=== PATIENT | female | born 1960 | race Caucasian/White ===

== ENCOUNTER 2017-03-07 13:41 | Inpatient (IN) | payer OTHER ==
[~2017-03-07] VITALS: Ht 162.6 cm; Wt 78.1 kg
[~2017-03-07 13:41] MED LIST: ASPI81TA81 PO; ATOR20TA15 PO; ERGO1CAP30 PO; METF500T PO; MULT-65 PO; OMEP40CA2 PO
[2017-03-07 13:43] VITALS: BP 162/72; PULSE 110; RESP 20; TEMP 99.1; O2SAT 98
--- NOTE | 2017-03-07 13:47 | PD ---
Physical Exam Date Seen by Provider: Mar 07, 2017 Time Seen by Provider: 13:45 Narrative 56 yo female here for evaluation of wound check. Had an amputation on the right foot in July. Has a new developing redness and blistering on the right foot since yesterday. No injuries per patient. No fevers. Pain is 5/10. Vitals are stable in triage. Awaiting bed placement. Data Data Last Documented VS Vital Signs Date Time Temp Pulse Resp B/P Pulse Ox O2 Delivery O2 Flow Rate FiO2 03/07/17 13:43 99.1 110 20 162/72 98 Room Air [facility] Medical Record Reviewed: Yes Supervised Visit with ABDULAZIZ: Jay Ambrose Mar 07, 2017 13:47
--- NOTE | 2017-03-07 13:54 | PD ---
HPI Chief Complaint: Skin Problem Time Seen by Provider: 13:54 Travel History International Travel<30 days: No Contact w/Intl Traveler<30days: No Traveled to known affect area: No History of Present Illness HPI 56-year-old female with history of diabetes, neuropathy, colitis, with amputation of all of her toes on the right foot and her left great toe, presents to emergency department today for evaluation of a blister that appeared on the plantar surface of her right foot last evening but has increased in size with pain and throbbing extending to the ankle. Patient states that prior to yesterday the wound was not there. She states she did a lot of walking yesterday and noticed an approximate 2 cm darkened blister at the end of the day yesterday. She was in no pain when she went to bed. She does report intermittent hot and cold flashes but uncertain of fever. No nausea or vomiting. No diarrhea. She contacted Dr. Benson who performed the amputation in July and advised she come to the emergency department. Patient does report history of stepping on a nail on the right foot in November of this year. She does have a scabbed over wound lateral to the area of the new blister that she states is unchanged and not worsened. She does continue to smoke cigarettes. Denies any illicit drug use. PFSH Past Medical History Arthritis: Yes Autoimmune Disease: No Anxiety: No Depression: No Cancer: No Cardiovascular Problems: No High Cholesterol: No Congestive Heart Failure: No COPD: No Cerebrovascular Accident: No Diabetes: Yes Diminished Hearing: No Endocrine: Yes (BORDERLINE DIABETES) Gastrointestinal Disorders: Yes GERD: Yes Genitourinary: No Hiatal Hernia: No Immune Disorder: No Musculoskeletal: Yes (BILATERAL KNEE MENISCUS TEARS) Neurologic: No Psychiatric: No Reproductive: No Respiratory: No Renal Failure: No Seizures: No Sleep Apnea: No Thyroid Disease: No Ulcer: No ?: Not LMP: MENOPAUSAL Past Surgical History Abdominal Surgery: No Cardiac Surgery: No Section: Yes Ear Surgery: No Endocrine Surgery: No Eye Surgery: No Genitourinary Surgery: No Gynecologic Surgery: Yes (, HYSTERECTOMY) Hysterectomy: Yes Oral Surgery: No Pacemaker: No Thoracic Surgery: No Other Surgery: Yes (BILATERAL GREAT TOE AMP, RIGHT 2ND AND 4TH TOE AMPUTATION) Social History Alcohol Use: No Tobacco Use: No (QUIT JULY 2016) Substance Use: No Allergies-Medications (Allergen,Severity, Reaction): Coded Allergies: Codeine (Verified Allergy, Severe, Hives, 03/07/17) Morphine (Verified Allergy, Severe, rash, 03/07/17) Penicillin (Verified Allergy, Severe, Hives, 03/07/17) Pt reports she has tolerated Keflex on multiple occassions in past. Uncoded Allergies: STEROIDS (Allergy, Severe, Hives, 07/25/16) Reported Meds & Prescriptions Reported Meds & Active Scripts Active Omeprazole 40 Mg Cap 40 Mg PO DAILY Metformin (Metformin HCl) 500 Mg Tab 500 Mg PO BIDPC With meals Atorvastatin (Atorvastatin Calcium) 20 Mg Tab 20 Mg PO HS Reported Dolores (Hydrocodone-Acetaminophen) 5-325 mg Tab 1 Tab PO Q6H PRN Multi-Vitamin Daily (Multiple Vitamin) 1 Tab Tab 1 Tab PO DAILY Aspir-81 (Aspirin) 81 Mg Tabdr 81 Mg PO DAILY Review of Systems Except as stated in HPI: all other systems reviewed are Neg Physical Exam Narrative GENERAL: Well-nourished female patient, in no acute distress. SKIN: Focused skin assessment warm/dry. On the plantar surface of the distal aspect of the right foot there is a 2 cm x 1 cm area of dark purple surrounded by callus/blister appearing skin that extends 5 cm in diameter. From there erythema extends 10 cm in diameter towards the proximal foot. There is some fluctuance. HEAD: Atraumatic. Normocephalic. EYES: Pupils equal and round. No scleral icterus. No injection or drainage. ENT: No nasal bleeding or discharge. Mucous membranes pink and moist. NECK: Trachea midline. No JVD. CARDIOVASCULAR: Tachycardic rate and rhythm. No murmur appreciated. RESPIRATORY: No accessory muscle use. Clear to auscultation. Breath sounds equal bilaterally. GASTROINTESTINAL: Abdomen soft, non-tender, nondistended. Hepatic and splenic margins not palpable. MUSCULOSKELETAL: No obvious deformities. No clubbing. No cyanosis. No edema. All the toes of right foot are amputated. The left great toe is amputated. NEUROLOGICAL: Awake and alert. No obvious cranial nerve deficits. Motor grossly within normal limits. Normal speech. PSYCHIATRIC: Appropriate mood and affect; insight and judgment normal. Data Data Last Documented VS Vital Signs Date Time Temp Pulse Resp B/P Pulse Ox O2 Delivery O2 Flow Rate FiO2 03/07/17 16:45 98.7 94 20 133/67 96 03/07/17 14:05 Room Air Orders Electrocardiogram (03/07/17 14:00) Complete Blood Count With Diff (03/07/17 14:00) Comprehensive Metabolic Panel (03/07/17 14:00) Prothrombin Time / Inr (Pt) (03/07/17 14:00) Act Partial Throm Time (Ptt) (03/07/17 14:00) Lactic Acid Sepsis Protocol (03/07/17 14:00) Urinalysis - C+S If Indicated (03/07/17 14:00) Blood Culture (03/07/17 14:00) Chest, Single Ap (03/07/17 14:00) Blood Glucose (03/07/17 14:00) Ecg Monitoring (03/07/17 14:00) Iv Access Insert/Monitor (03/07/17 14:00) Oximetry (03/07/17 14:00) Oxygen Administration (03/07/17 14:00) Aztreonam Inj (Azactam Inj) (03/07/17 14:00) Metronidazole 500 Mg Inj (Flagyl 500 Mg (03/07/17 14:00) Vancomycin Inj (Vancomycin Inj) (03/07/17 14:00) Sodium Chlor 0.9% 1000 Ml Inj (Ns 1000 M (03/07/17 14:00) Sodium Chlor 0.9% 1000 Ml Inj (Ns 1000 M (03/07/17 14:00) Foot, Limited (2vws) (03/07/17 ) Westergren Sedimentation Rate (03/07/17 14:06) Sodium Chlor 0.9% 1000 Ml Inj (Ns 1000 M (03/07/17 16:00) Ketorolac Inj (Toradol Inj) (03/07/17 16:45) Mri Foot W&W/O Contrast (03/07/17 ) Lactic Acid (03/07/17 17:05) Admit Order (Ed Use Only) (03/07/17 17:16) Labs Laboratory Tests Test 03/07/17 03/07/17 03/07/17 03/07/17 14:10 14:55 16:10 17:02 White Blood Count 23.3 TH/MM3 Red Blood Count 3.95 MIL/MM3 Hemoglobin 11.6 GM/DL Hematocrit 35.2 % Mean Corpuscular Volume 89.0 FL Mean Corpuscular Hemoglobin 29.5 PG Mean Corpuscular Hemoglobin 33.1 % Concent Red Cell Distribution Width 13.5 % Platelet Count 277 TH/MM3 Mean Platelet Volume 8.7 FL Neutrophils (%) (Auto) 81.9 % Lymphocytes (%) (Auto) 11.4 % Monocytes (%) (Auto) 5.6 % Eosinophils (%) (Auto) 0.7 % Basophils (%) (Auto) 0.4 % Neutrophils # (Auto) 19.1 TH/MM3 Lymphocytes # (Auto) 2.7 TH/MM3 Monocytes # (Auto) 1.3 TH/MM3 Eosinophils # (Auto) 0.2 TH/MM3 Basophils # (Auto) 0.1 TH/MM3 CBC Comment DIFF FINAL Differential Comment Prothrombin Time 10.3 SEC Prothromb Time International 0.9 RATIO Ratio Activated Partial 32.4 SEC Thromboplast Time Sodium Level 133 MEQ/L Potassium Level 4.5 MEQ/L Chloride Level 100 MEQ/L Carbon Dioxide Level 23.0 MEQ/L Anion Gap 10 MEQ/L Blood Urea Nitrogen 10 MG/DL Creatinine 0.76 MG/DL Estimat Glomerular Filtration 79 ML/MIN Rate Random Glucose 198 MG/DL Calcium Level 9.9 MG/DL Total Bilirubin 0.5 MG/DL Aspartate Amino Transf 27 U/L (AST/SGOT) Alanine Aminotransferase 31 U/L (ALT/SGPT) Alkaline Phosphatase 125 U/L Total Protein 8.0 GM/DL Albumin 3.6 GM/DL Lactic Acid Level 2.2 mmol/L 1.5 mmol/L Urine Color LIGHT-YELLOW Urine Turbidity CLEAR Urine pH 6.0 Urine Specific [place] 1.004 Urine Protein NEG mg/dL Urine Glucose (UA) NEG mg/dL Urine Ketones NEG mg/dL Urine Occult Blood NEG Urine Nitrite NEG Urine Bilirubin NEG Urine Urobilinogen LESS THAN 2.0 MG/DL Urine Leukocyte Esterase NEG Urine WBC LESS THAN 1 /hpf Urine Squamous Epithelial 1 /hpf Cells Microscopic Urinalysis Comment CATH-CULT NOT IND MDM Medical Decision Making Medical Screen Exam Complete: Yes Emergency Medical Condition: Yes Medical Record Reviewed: Yes Differential Diagnosis Cellulitis versus abscess versus osteomyelitis versus sepsis Narrative Course 56 year-old female presents to emergency department for evaluation of worsening blister on the plantar surface of her right foot. Patient appears in distress. She does have a wound on the foot that appears to be infectious in nature. Sepsis workup was initiated as the patient is tachycardic with a low-grade temperature here. Patient was given Zantac 10, Flagyl, and vancomycin IV. Her white count is 23.3 with a neutrophilia of 19.1. CMP is with mild hyponatremia 133. Alkaline phosphatase slightly elevated 125. Lactic acid is 2.2. Urinalysis is unremarkable. Chest x-rays without acute cardiopulmonary disease. Foot x-ray shows soft tissue swelling involving the stump at the site of the previous metatarsal amputation without definite underlying erosive changes of the bones. Tiny plantar and Achilles calcaneal spurs. MRI is ordered. A call has a place to [facility] for admission. Plan is discussed with the patient who is tearful but in agreement with this plan of care. Sepsis Criteria SIRS Criteria (2 or more): Heart rate over 90, WBC > 35029, < 4000 or > 10% bands Sepsis Criteria (SIRS+source): Infect source susp/known Severe Sepsis (+one): Lactate >2 Diagnosis Primary Impression: Sepsis Qualified Code: A41.9 - Sepsis, due to unspecified organism Additional Impressions: Cellulitis and abscess of foot Diabetes 1.5, managed as type 1 Neuropathic pain Admitting Information Admitting Physician Requests: Admit Condition: Stable Beth Ferraro Mar 07, 2017 13:54
[2017-03-07] MEDS ORDERED: AZTREONAM INJ 2,000 MG in SODIUM CHLORIDE 0.9% INJ 100 ML IV STA (14:00)
[2017-03-07] MEDS ORDERED: metroNIDAZOLE 500 MG INJ 100 ML IV STA (14:00)
[2017-03-07] MEDS ORDERED: SODIUM CHLOR 0.9% 1000 ML INJ 1,000 ML IV ONE ×2 (14:00→16:00)
[2017-03-07] MEDS ORDERED: VANCOMYCIN INJ 1,000 MG in SODIUM CHLOR 0.9% 250 ML INJ 250 ML IV STA (14:00)
[2017-03-07] MEDS ORDERED: SODIUM CHLOR 0.9% 1000 ML INJ 800 ML IV ONE (14:00)
[2017-03-07 14:05] VITALS: RESP 18; O2SAT 98
--- NOTE | 2017-03-07 14:30 | RADRPT ---
EXAM DATE/TIME: 03/07/2017 14:27 [facility] COMPARISON: CHEST SINGLE AP, August 25, 2016, 17:43. INDICATIONS : Fever, cough x 3days MEDICAL HISTORY : diabetic SURGICAL HISTORY : None. ENCOUNTER: Initial ACUITY: 3 days PAIN SCORE: 0/10 LOCATION: Bilateral chest FINDINGS: A single view of the chest demonstrates the lungs to be symmetrically aerated without evidence of mas s, infiltrate or effusion. The cardiomediastinal contours are unremarkable. Osseous structures are intact. CONCLUSION: No acute disease. Jared Matthews MD FACR on March 07, 2017 at 14:28 Board Certified Radiologist. This report was verified electronically.
--- NOTE | 2017-03-07 14:37 | RADRPT ---
EXAM DATE/TIME: 03/07/2017 14:23 [facility] COMPARISON: No previous studies available for comparison. INDICATIONS : Inflammation, right foot blister on medial side MEDICAL HISTORY : Diabetic SURGICAL HISTORY : 2 amputation surgeries ENCOUNTER: Initial ACUITY: 1 day PAIN SCORE: 9/10 LOCATION: Right foot FINDINGS: Soft tissue swelling is noted involving the stump at the site of previous metatarsal amputation. No erosive changes involving the underlying bony structures are noted. Tiny Achilles and plantar calcan eal spurs are noted. CONCLUSION: 1. Soft tissue swelling involving the stump at the site of previous metatarsal amputation without de finite underlying erosive changes of the bones. 2. Tiny plantar and Achilles calcaneal spurs. Kamari Powell MD on March 07, 2017 at 14:30 Board Certified Radiologist. This report was verified electronically.
[2017-03-07] MEDS ORDERED: NORC5TAB PO (14:53)
[2017-03-07 15:21] LABS: AUTOMATED NEUTROPHIL # 19.1 TH/MM3 (1.8-7.7); BASOPHIL # 0.1 TH/MM3 (0-0.2); BASOPHIL % 0.4 % (0.0-2.0); EOSINOPHIL # 0.2 TH/MM3 (0-0.4); EOSINOPHIL % 0.7 % (0.0-4.0); HEMATOCRIT 35.2 % (35.0-46.0); HEMO FLAGS DIFF FINAL; LYMPH % 11.4 % (9.0-44.0); LYMPHOCYTE # 2.7 TH/MM3 (1.0-4.8); MEAN CORPUSCULAR HEMOGLOBIN 29.5 PG (27.0-34.0); MEAN CORPUSCULAR HGB CONC 33.1 % (32.0-36.0); MONO % 5.6 % (0.0-8.0); NEUT % 81.9 % (16.0-70.0); PLATELET COUNT 277 TH/MM3 (150-450); RED BLOOD COUNT 3.95 MIL/MM3 (4.00-5.30); RED CELL DISTRIBUTION WIDTH 13.5 % (11.6-17.2); WHITE BLOOD COUNT 23.3 TH/MM3 (4.0-11.0)
[2017-03-07 15:38] LABS: APTT (PATIENT) 32.4 SEC (24.3-30.1); INTERNATIONAL NORMALIZED RATIO 0.9 RATIO; PROTHROMBIN TIME - PATIENT 10.3 SEC (9.8-11.6)
[2017-03-07 15:42] LABS: ALKALINE PHOSPHATASE 125 U/L (45-117); TOTAL BILIRUBIN ADULT 0.5 MG/DL (0.2-1.0)
[2017-03-07 15:53] LABS: ALT (GPT) 31 U/L (10-53); ANION GAP 10 MEQ/L (5-15); AST (GOT) 27 U/L (15-37); BLOOD UREA NITROGEN 10 MG/DL (7-18); CHLORIDE 100 MEQ/L (98-107); GLOMERULAR FILTRATION RATE 79 ML/MIN (>89); POTASSIUM 4.5 MEQ/L (3.5-5.1); SODIUM (NA) 133 MEQ/L (136-145)
[2017-03-07 16:43] LABS: BLOOD, URINE NEG (NEG); COMMENT (UR) CATH-CULT NOT IND; CULTURE IF INDICATED CATH CULTURE NOT IND; GLUCOSE,URINE NEG (NEG); KETONE, URINE NEG (NEG); NITRITE,URINE NEG (NEG); SQUAMOUS EPITHELIAL CELL URINE 1 /hpf (0-5); URINE COLOR LIGHT-YELLOW (YELLW/STRAW)
[2017-03-07 16:45] VITALS: BP 133/67; PULSE 94; RESP 20; TEMP 98.7; O2SAT 96
[2017-03-07] MEDS ORDERED: KETOROLAC TROMETHAMINE 30 MG/ML (IVP) VIAL IV PUSH ONE (16:45)
[2017-03-07 17:05] LABS: LACTIC ACID GHOST NOT REPORTABLE
[2017-03-07] MEDS ORDERED: SENNOSIDES 8.6 MG TAB PO PRN (18:00)
[2017-03-07] MEDS ORDERED: ONDANSETRON HCL 4 MG/2 ML VIAL IVP PRN (18:00)
[2017-03-07] MEDS ORDERED: NALOXONE HCL 0.4 MG/ML AMP IV PRN (18:00)
[2017-03-07] MEDS ORDERED: SODIUM CHLORIDE 0.9% FLUSH 10 ML FLUSH IV FLUSH PRN (18:00)
[2017-03-07] MEDS ORDERED: BISACODYL 10 MG SUPP RECTAL PRN (18:00)
[2017-03-07] MEDS ORDERED: MAGNESIUM HYDROXIDE SUSP 30 ML CUP PO PRN (18:00)
[2017-03-07] MEDS ORDERED: DEXTROSE 50% IN WATER 50 ML VIAL(D50) IV PRN (18:00)
[2017-03-07] MEDS ORDERED: Vancomycin Consult Pharmacy 1 EA OTHER SCH (18:00)
[2017-03-07] MEDS ORDERED: GLUCAGON 1 MG/ML VIAL OTHER PRN (18:00)
[2017-03-07] MEDS ORDERED: ACETAMINOPHEN 325 MG TAB PO PRN (18:00)
[2017-03-07] MEDS ORDERED: GADODIAMIDE PF 287 MG/ML 5 ML VIAL (for RAD MRI) IV ONE (18:53)
[2017-03-07] MEDS: SODIUM CHLOR 0.9% 1000 ML INJ 1,000 ML IV SCH (19:20)
[2017-03-07 19:25] VITALS: BP 134/86; PULSE 93; RESP 18; O2SAT 97
--- NOTE | 2017-03-07 19:43 | RADRPT ---
EXAM DATE/TIME: 03/07/2017 18:30 [facility] COMPARISON: FOOT RIGHT COMPLETE ([id number]), August 21, 2016, 21:40. FOOT RIGHT LIMITED (2VWS), March 07, 2017, 1 4:23. MRI FOOT RIGHT W & W/O CONTRAST, August 21, 2016, 20:13. INDICATIONS : Pain and swelling of right foot. Status post amputation of all digits to level of the base of metatar sals. Patient being evaluated for osteomyelitis. CONTRAST: 14 cc Omniscan (gadodiamide) IV MEDICAL HISTORY : Diabetes mellitus type 2. SURGICAL HISTORY : Amputation of all digits on right foot. ENCOUNTER: Initial ACUITY: 1 week PAIN SCORE: 2/10 LOCATION: Right Foot. TECHNIQUE: Multiplanar, multisequence MRI examination was performed without contrast and after the intravenous a dministration of gadolinium. FINDINGS: The patient is again noted to be status post amputation of all 5 digits to the level of the proximal metatarsals. The previously noted edema in the first metatarsal is no longer visualized and there is no significant marrow edema in the other metatarsal bases as well. The other visualized mid and hindf oot bones are intact with normal marrow signal. There is mild degenerative change. Extensive soft tis leeanne edema is again noted. There is susceptibility artifact involving the anterior soft tissues along the stump at the level of the fourth digit. This appears to be characteristic of artifact from the [place] ture seen on the plain film. CONCLUSION: 1. Amputation of all 5 digits the level of base of the metatarsals. 2. No definite evidence to suggest osteomyelitis. 3. Extensive soft tissue edema. 4. Apparent suture artifact. Evan Adams MD on March 07, 2017 at 19:35 Board Certified Radiologist. This report was verified electronically.
[2017-03-07] MEDS: LEVOFLOXACIN 750 MG PREMIX INJ 150 ML IV SCH (19:58)
[2017-03-07] MEDS: HEPARIN SODIUM - SQ 10,000 UNITS/ML VIAL SQ SCH (20:04)
[2017-03-07] MEDS: ATORVASTATIN 20 MG TAB PO SCH (20:54)
[2017-03-07] MEDS: DOCUSATE SODIUM 50 MG/SENNA 8.6 MG TAB PO SCH (20:54)
[2017-03-07] MEDS: ACETAMINOPHEN/HYDROcodone 325 MG/5 MG TAB PO PRN (20:56)
[2017-03-07] MEDS: SODIUM CHLORIDE 0.9% FLUSH 10 ML FLUSH IV FLUSH SCH (21:00)
[2017-03-07] MEDS: INSULIN ASPART SUPPLEMENTAL SCALE SQ SCH (21:57)
[2017-03-07 23:22] VITALS: BP 160/74; PULSE 97; RESP 20; TEMP 98.8; O2SAT 95
[2017-03-08] VITALS: BP 169/87; PULSE 96; RESP 22; TEMP 97.1; O2SAT 97
[2017-03-08] MEDS: VANCOMYCIN INJ 900 MG in SODIUM CHLOR 0.9% 250 ML INJ 250 ML IV SCH ×2 (02:15→15:00)
[2017-03-08] MEDS: ACETAMINOPHEN/HYDROcodone 325 MG/5 MG TAB PO PRN (02:24)
[2017-03-08] MEDS: ACETAMINOPHEN/HYDROcodone 325 MG/7.5 MG TAB PO PRN ×5 (02:31→23:52)
[2017-03-08] MEDS ORDERED: VANCOMYCIN 1,000 MG/NS 250 ML IV SCH ×2 (03:00)
[2017-03-08 04:00] VITALS: BP 130/62; PULSE 90; RESP 18; TEMP 98.2; O2SAT 93
--- NOTE | 2017-03-08 04:13 | HHI.HP ---
HPI Service [facility] Primary Care Physician Jania Mauro MD Admission Diagnosis SEPSIS; L foot cellulitis; r/o osteomyelitis Diagnoses: Chief Complaint: right foot blister swollen, hot, and painful Travel History International Travel<30 Days: No Contact w/Intl Traveler <30 Da: No Traveled to Known Affected Are: No History of Present Illness Written by Maribeth Castillo, acting as scribe for Dr. Tolentino on 03/08/17 at 04:13. The patient is seen in her hospital room. She reports that she had a blister on her foot noted Sunday after she had run some errands and by Sunday morning, the foot was swollen, hot, and hurt to stand on. Denies fevers. WBC was 18 in PCP office and was 23 in ED. Big toe amputated in 2009, 07/12/2016 had rest of toes amputated by Dr. Morales. Has T2DM, reports that her last HgA1C was 7.0. . Review of Systems Except as stated in HPI: all other systems reviewed are Neg Past Family Social History Past Medical History T2DM Hypertriglyceridemia Denies CAD, respiratory problems, liver/kidney problems, DVT, PE, CVA, or seizures Past Surgical History Left knee Right knee x 2 Hysterectomy Left great toe amputated 2012 Right great toe amputated 2009 . Reported Medications Reported Meds & Active Scripts Active Omeprazole 40 Mg Cap 40 Mg PO DAILY Metformin (Metformin HCl) 500 Mg Tab 500 Mg PO BIDPC With meals Atorvastatin (Atorvastatin Calcium) 20 Mg Tab 20 Mg PO HS Reported [place] (Hydrocodone-Acetaminophen) 5-325 mg Tab 1 Tab PO Q6H PRN Multi-Vitamin Daily (Multiple Vitamin) 1 Tab Tab 1 Tab PO DAILY Aspir-81 (Aspirin) 81 Mg Tabdr 81 Mg PO DAILY . Allergies: Coded Allergies: Codeine (Verified Allergy, Severe, Hives, 03/07/17) Morphine (Verified Allergy, Severe, rash, 03/07/17) Penicillin (Verified Allergy, Severe, Hives, 03/07/17) Pt reports she has tolerated Keflex on multiple occassions in past. Uncoded Allergies: STEROIDS (Allergy, Severe, Hives, 07/25/16) Active Ordered Medications Current Medications Aztreonam 2000 mg/ Sodium Chloride 100 ml @ 200 mls/hr ONCE STAT IV Last administered on 03/07/17 15:07; Start 03/07/17 at 14:00; Stop 03/07/17 at 14:29 ; Status DC Metronidazole 100 ml @ 100 mls/hr ONCE STAT IV Last administered on 14:33; Start 03/07/17 at 14:00; Stop 03/07/17 at 14:59; Status DC Vancomycin HCl 1000 mg/Sodium Chloride 250 ml @ 250 mls/hr ONCE STAT IV Last administered on 03/07/17 15:07; Start 03/07/17 at 14:00; Stop 03/07/17 at 14:59 ; Status DC Sodium Chloride 1,000 ml @ 1,000 mls/hr Q1H ONCE IV Last administered on 14:32; Start 03/07/17 at 14:00; Stop 03/07/17 at 14:59; Status DC Sodium Chloride 800 ml @ 1,000 mls/hr Q48M ONCE IV Last administered on 14:32; Start 03/07/17 at 14:00; Stop 03/07/17 at 14:47; Status DC Sodium Chloride (NS 1000 ml Inj) 1,000 ml @ 999 mls/hr BOLUS ONCE IV Last administered on 03/07/17 16:04; Start 03/07/17 at 16:00; Stop 03/07/17 at 17:00 ; Status DC Ketorolac Tromethamine 30 mg 30 mg ONCE ONCE IV PUSH Last administered on 03/07 16:50; Start 03/07/17 at 16:45; Stop 03/07/17 at 16:46; Status DC Pharmacy Profile Note 0 ml @ 0 mls/hr UNSCH OTHER ; Start 03/07/17 at 18:00 Sodium Chloride (NS 1000 ml Inj) 1,000 ml @ 84 mls/hr [id number] IV Last administered on 03/07/17 19:20; Start 03/07/17 at 17:49 Sodium Chloride (NS Flush) 2 ml UNSCH PRN IV FLUSH FLUSH AFTER USING IV ACCESS ; Start 03/07/17 at 18:00 Sodium Chloride (NS Flush) 2 ml BID IV FLUSH ; Start 03/07/17 at 21:00 Ondansetron HCl (Zofran Inj) 4 mg Q6H PRN IVP NAUSEA OR VOMITING; Start at 18:00 Heparin Sodium (Porcine) (Heparin Inj) 5,000 units Q12H SQ Last administered on 03/07/17 20:04; Start 03/07/17 at 20:00 Acetaminophen (Tylenol) 650 mg Q6H PRN PO headache/fever/pain1-2; Start at 18:00 Naloxone HCl (Narcan Inj) 0.4 mg UNSCH PRN IV SEE LABEL COMMENTS; Start at 18:00 Senna/Docusate Sodium (Mandy-Colace) 1 tab BID PO Last administered on 20:54; Start 03/07/17 at 21:00 Magnesium Hydroxide (Milk Of Magnesia Liq) 30 ml Q12H PRN PO MILD - MODERATE CONSTIPATION; Start 03/07/17 at 18:00 Sennosides (Senokot) 17.2 mg Q12H PRN PO MODERATE - SEVERE CONSTIPATION; Start 03/07/17 at 18:00 Bisacodyl (Dulcolax Supp) 10 mg DAILY PRN RECTAL SEVERE CONSITIPATION; Start at 18:00 Dextrose (D50w (Vial) Inj) 50 ml UNSCH PRN IV HYPOGLYCEMIA-SEE COMMENTS; Start 03/07/17 at 18:00 Glucagon (Glucagon Inj) 1 mg UNSCH PRN OTHER HYPOGLYCEMIA-SEE COMMENTS; Start 03/07/17 at 18:00 Insulin Aspart 1 1 ACHS SLIDING SCALE SQ Last administered on 03/07/17 21:57 ; Start 03/07/17 at 21:00 Levofloxacin/ Dextrose (Levaquin 750 Mg Premix Inj) 150 ml @ 100 mls/hr Q24H IV Last administered on 03/07/17 19:58; Start 03/07/17 at 20:00 Aspirin (Ecotrin Ec) 81 mg DAILY PO ; Start 03/08/17 at 09:00 Atorvastatin Calcium (Lipitor) 20 mg HS PO Last administered on 03/07/17 20:54 ; Start 03/07/17 at 21:00 Pantoprazole Sodium (Protonix) 40 mg DAILY PO ; Start 03/08/17 at 09:00 Acetaminophen/ Hydrocodone Bitart ([place] 5-325 Mg) 1 tab Q4H PRN PO PAIN SCALE 3 TO 5 Last administered on 03/07/17 20:56; Start 03/07/17 at 18:15 Acetaminophen/ Hydrocodone Bitart ([place] 7.5-325 Mg) 1 tab Q4H PRN PO PAIN SCALE 6 TO 10 Last administered on 03/08/17 02:31; Start 03/07/17 at 18:15 Hydromorphone HCl (Dilaudid Pf Inj) 0.5 mg Q4H PRN IV BREAKTHROUGH PAIN; Start 03/07/17 at 18:15 Gadodiamide 14 ml 14 ml STK-MED ONCE IV Last administered on 03/07/17 18:53; Start 03/07/17 at 18:53; Stop 03/07/17 at 18:54; Status DC Vancomycin HCl 1000 mg/Sodium Chloride 250 ml @ 250 mls/hr Q12H IV ; Start at 03:00; Status Cancel Vancomycin HCl/ Sodium Chloride (Vancomycin Inj/ NS 250 ml Inj) 259 ml @ 250 mls/hr Q12H IV Last administered on 03/08/17 02:15; Start 03/08/17 at 03:00 Miscellaneous Information SPECIFIC LAB TO BE DRAWN:VANCO TROUGH DATE TO BE DRSophie. ONCE ONCE .XX ; Start 03/09/17 at 02:45; Stop 03/09/17 at 02:46 . Family History Brother committed suicide 4 years ago Oldest sister lives in [facility] with CAD GM with breast CA . Social History Tobacco: smokes since age 17; quit smoking in July and then restarted smoking; currently smokes 1/4 - 1/2 ppd Alcohol: denies Illicit Drugs: denies . Physical Exam Vital Signs Vital Signs Date Time Temp Pulse Resp B/P Pulse Ox O2 Delivery O2 Flow Rate FiO2 03/07/17 23:22 98.8 97 20 160/74 95 03/07/17 19:26 92 18 03/07/17 19:25 93 18 134/86 97 03/07/17 17:50 16 03/07/17 16:45 98.7 94 20 133/67 96 03/07/17 14:10 16 03/07/17 14:05 18 98 Room Air 03/07/17 14:05 98 Room Air 03/07/17 13:43 99.1 110 20 162/72 98 Room Air Physical Exam GENERAL: This is a pleasant female patient, in no apparent distress. SKIN: Cool and dry. Right foot with toes amputated - surgical scars healed. On the plantar surface of the right foot, there is a large area of swelling in the distal aspect of the foot with yellow appearing fluid seen underneath. The foot is also notably tender. HEAD: Atraumatic. Normocephalic. EYES: No scleral icterus. No injection or drainage. ENT: Nose without bleeding, purulent drainage. NECK: Trachea midline. No JVD. CARDIOVASCULAR: Regular rate and rhythm without murmurs, gallops, or rubs. RESPIRATORY: Clear to auscultation. Breath sounds equal bilaterally. No wheezes , rales, or rhonchi. GASTROINTESTINAL: Abdomen soft, non-tender, nondistended. No guarding. MUSCULOSKELETAL: Extremities without clubbing, cyanosis, or edema. No calf tenderness. NEUROLOGICAL: Awake and alert. Motor and sensory grossly within normal limits. Normal speech. . Laboratory Laboratory Tests Test 03/07/17 03/07/17 03/07/17 03/07/17 14:10 14:55 16:10 17:02 White Blood Count 23.3 Red Blood Count 3.95 Hemoglobin 11.6 Hematocrit 35.2 Mean Corpuscular Volume 89.0 Mean Corpuscular Hemoglobin 29.5 Mean Corpuscular Hemoglobin 33.1 Concent Red Cell Distribution Width 13.5 Platelet Count 277 Mean Platelet Volume 8.7 Neutrophils (%) (Auto) 81.9 Lymphocytes (%) (Auto) 11.4 Monocytes (%) (Auto) 5.6 Eosinophils (%) (Auto) 0.7 Basophils (%) (Auto) 0.4 Neutrophils # (Auto) 19.1 Lymphocytes # (Auto) 2.7 Monocytes # (Auto) 1.3 Eosinophils # (Auto) 0.2 Basophils # (Auto) 0.1 CBC Comment DIFF FINAL Differential Comment Prothrombin Time 10.3 Prothromb Time International 0.9 Ratio Activated Partial 32.4 Thromboplast Time Sodium Level 133 Potassium Level 4.5 Chloride Level 100 Carbon Dioxide Level 23.0 Anion Gap 10 Blood Urea Nitrogen 10 Creatinine 0.76 Estimat Glomerular Filtration 79 Rate Random Glucose 198 Calcium Level 9.9 Total Bilirubin 0.5 Aspartate Amino Transf 27 (AST/SGOT) Alanine Aminotransferase 31 (ALT/SGPT) Alkaline Phosphatase 125 Total Protein 8.0 Albumin 3.6 Lactic Acid Level 2.2 1.5 Urine Color LIGHT-YELLOW Urine Turbidity CLEAR Urine pH 6.0 Urine Specific [place] 1.004 Urine Protein NEG Urine Glucose (UA) NEG Urine Ketones NEG Urine Occult Blood NEG Urine Nitrite NEG Urine Bilirubin NEG Urine Urobilinogen LESS THAN 2.0 Urine Leukocyte Esterase NEG Urine WBC LESS THAN 1 Urine Squamous Epithelial 1 Cells Microscopic Urinalysis Comment CATH-CULT NOT IND Date/Time Procedure Status Source Growth 03/07/17 14:42 Aerobic Blood Culture Received Blood Peripheral Pending 03/07/17 14:42 Anaerobic Blood Culture Received Blood Peripheral Pending Result Diagram: 03/07/17 1410 03/07/17 1410 Imaging Last Impressions Chest X-Ray 03/07/17 1400 Signed Impressions: Service Date/Time: Tuesday, March 07, 2017 14:27 - CONCLUSION: No acute disease. Jared Matthews MD FACR Foot X-Ray 03/07/17 0000 Signed Impressions: Service Date/Time: Tuesday, March 07, 2017 14:23 - CONCLUSION: 1. Soft tissue swelling involving the stump at the site of previous metatarsal amputation without definite underlying erosive changes of the bones. 2. Tiny plantar and Achilles calcaneal spurs. Kamari Powell MD Foot MRI 03/07/17 0000 Signed Impressions: Service Date/Time: Tuesday, March 07, 2017 18:30 - CONCLUSION: 1. Amputation of all 5 digits the level of base of the metatarsals. 2. No definite evidence to suggest osteomyelitis. 3. Extensive soft tissue edema. 4. Apparent suture artifact. Evan Adams MD . Assessment and Plan Assessment and Plan Right foot cellulitis Sepsis - right foot MRI negative for osteomyelitis - Vancomycin IV with pharmacy consultation for therapeutic monitoring and dosing - Levaquin 750 mg IV every 24 hours - WBC 23.3 with significant neutrophilia - recheck CBC in a.m. and follow trends - Lactic Acid 2.2 initial, 1.5 on recheck - Lortab by mouth when necessary pain with Dilaudid 0.5 mg IV every 4 hours when necessary for breakthrough pain - IV fluid hydration with normal saline at 84 cc per hour - MRI right foot without signs of osteomyelitis; extensive soft tissue edema noted - consult Dr. Benson per patient request - he performed amputation 07/2016 on right foot toes 2 - 5 Type 2 DM - Accu-Cheks before meals and at bedtime with low-dose sliding scale coverage - Hypoglycemia protocol - Monitor trends and blood glucose levels and adjust treatment as indicated - 1800 kcal ADA diet DVT prophylaxis - Lovenox 40 mg subq q24h Discussed Condition With Patient and RN . Physician Certification 2 Midnight Certification Type: Admission for Inpatient Services Order for Inpatient Services The services are ordered in accordance with Medicare regulations or non- Medicare payer requirements, as applicable. In the case of services not specified as inpatient-only, they are appropriately provided as inpatient services in accordance with the 2-midnight benchmark. Estimated LOS (days): 3 days is the estimated time the patient will need to remain in the hospital, assuming treatment plan goals are met and no additional complications. Post-Hospital Plan: Home Maribeth Castillo Mar 08, 2017 04:13
[2017-03-08] MEDS: SODIUM CHLOR 0.9% 1000 ML INJ 1,000 ML IV SCH (05:44)
[2017-03-08] MEDS: INSULIN ASPART SUPPLEMENTAL SCALE SQ SCH ×4 (05:59→20:14)
[2017-03-08] MEDS: HEPARIN SODIUM - SQ 10,000 UNITS/ML VIAL SQ SCH ×2 (08:00→20:02)
--- NOTE | 2017-03-08 08:05 | EKG ---
Date Performed: 03/07/2017 Time Performed: 14:34:48 PTAGE: 56 years EKG: SINUS TACHYCARDIA ABNORMAL RHYTHM ECG PREVIOUS TRACING : 08/21/2016 17.32 DOCTOR: Arvin Garcia Interpretating Date/Time 03/08/2017 07:59:26
[2017-03-08 08:28] VITALS: BP 142/70; PULSE 82; RESP 20; TEMP 98.5; O2SAT 97
[2017-03-08] MEDS ORDERED: ENOXAPARIN SODIUM 40 MG/0.4 ML SYRINGE SQ SCH (09:00)
[2017-03-08] MEDS: SODIUM CHLORIDE 0.9% FLUSH 10 ML FLUSH IV FLUSH SCH (09:00)
[2017-03-08] MEDS: ASPIRIN EC 81 MG TABEC PO SCH (09:00)
[2017-03-08 09:04] LABS: AUTOMATED NEUTROPHIL # 7.8 TH/MM3 (1.8-7.7); BASOPHIL # 0.1 TH/MM3 (0-0.2); BASOPHIL % 0.5 % (0.0-2.0); EOSINOPHIL # 0.3 TH/MM3 (0-0.4); EOSINOPHIL % 3.2 % (0.0-4.0); HEMATOCRIT 31.6 % (35.0-46.0); HEMO FLAGS DIFF FINAL; LYMPH % 17.5 % (9.0-44.0); LYMPHOCYTE # 1.9 TH/MM3 (1.0-4.8); MEAN CELL VOLUME 88.8 FL (80.0-100.0); MEAN CORPUSCULAR HGB CONC 32.7 % (32.0-36.0); MONO % 6.3 % (0.0-8.0); NEUT % 72.5 % (16.0-70.0); PLATELET COUNT 258 TH/MM3 (150-450); RED BLOOD COUNT 3.56 MIL/MM3 (4.00-5.30); RED CELL DISTRIBUTION WIDTH 13.2 % (11.6-17.2); WHITE BLOOD COUNT 10.8 TH/MM3 (4.0-11.0)
[2017-03-08] MEDS: PANTOPRAZOLE SOD 40 MG DELAYED RELEASE TAB PO SCH (09:24)
[2017-03-08] MEDS: DOCUSATE SODIUM 50 MG/SENNA 8.6 MG TAB PO SCH ×2 (09:24→20:01)
[2017-03-08 09:34] LABS: POTASSIUM 3.6 MEQ/L (3.5-5.1)
[2017-03-08] MEDS ORDERED: PROPOFOL 200 MG/20 ML AMP IV ONE (12:00)
[2017-03-08 12:16] VITALS: BP 133/73; PULSE 92; RESP 20; TEMP 98.4; O2SAT 98
[2017-03-08] MEDS ORDERED: GENTAMICIN SULFATE 80 MG/2 ML VIAL ONE (12:56)
[2017-03-08] MEDS: HYDROmorphone HCL PF 1 MG/ML VIAL IV PRN ×2 (13:06→20:50)
[2017-03-08] MEDS ORDERED: FAMOTIDINE 20 MG/2 ML VIAL ONE (13:44)
[2017-03-08] MEDS ORDERED: MIDAZOLAM HCL 2 MG/2 ML VIAL ONE (13:44)
[2017-03-08] MEDS ORDERED: VANCOMYCIN HCL 1000 MG VIAL ONE (14:25)
--- NOTE | 2017-03-08 14:57 | PD.OP ---
cc: Fito Benson MD Operative Report Date of Surgery: Mar 08, 2017 Preoperative Diagnosis: Abscess right foot. Diabetic right foot. Status post transmetatarsal amputation Postoperative Diagnosis: Same Procedure: Irrigation and debridement right foot debridement of deep ulcer with abscess and packing with iodoform gauze Anesthesia: Gen. Surgeon: Fito Benson Lace Finisher(s): Staff Operation and Findings: EBL: 50 cc INDICATION: Patient is a 56-year-old female with a diabetic right foot. She's had multiple procedures and naproxen 6 months ago came to a transmetatarsal amp dictation. She developed a recent fluid collection plantar medial aspect of the right foot with fevers evidence of sepsis. MRI scan shows evidence of significant edema. There is a fluid-filled blister area probably with a small deep abscess. She now presents for surgical treatment PROCEDURE: The patient brought the operating room and anesthetized with IV sedation. The right foot was scrubbed with alcohol followed by Hibiclens and draped sterilely. A timeout was done. There was a blister. This was completely unroofed. This then tracked back to a small area of a deep abscess about the size of my thumb extending into the soft tissues. This was debrided sharply to bleeding tissue. It was irrigated copiously with antibody irrigation. 2 cultures were obtained. A deep packing with iodoform gauze was performed. A sterile dressing was applied. The patient was awakened and taken to the recovery room in satisfactory condition Fito Benson MD Mar 08, 2017 14:57
[2017-03-08] MEDS ORDERED: MORPHINE SULFATE 30 MG/30 ML PCA IV SCH (15:00)
[2017-03-08] MEDS ORDERED: Post-op Orders (for Pharmacy) MISC XX ONE (15:00)
[2017-03-08] MEDS ORDERED: NALOXONE HCL 0.4 MG/ML AMP IV PRN (15:00)
[2017-03-08] MEDS ORDERED: MAGNESIUM HYDROXIDE SUSP 30 ML CUP PO PRN (15:00)
[2017-03-08] MEDS ORDERED: SODIUM CHLORIDE 0.9% FLUSH 5 ML FLUSH IVF PRN (15:00)
[2017-03-08] MEDS ORDERED: diphenhydrAMINE HCL 25 MG CAP PO PRN (15:00)
[2017-03-08] MEDS ORDERED: ONDANSETRON HCL 4 MG/2 ML VIAL IVP PRN (15:00)
[2017-03-08] MEDS ORDERED: MORPHINE SULFATE 8 MG/ML INJ IV PUSH PRN (15:00)
[2017-03-08] MEDS ORDERED: fentaNYL CITRATE 250 MCG/5 ML AMP ONE (15:01)
[2017-03-08] MEDS: LACTATED RINGER'S 1000 ML INJ 1,000 ML IV SCH (15:39)
[2017-03-08] MEDS ORDERED: DO NOT ADM ANY ANTICOAGULANT DRUGS PRN (16:00)
--- NOTE | 2017-03-08 16:08 | MB ---
cc: DEDE NEUMANN DATE OF CONSULTATION: 03/08/2017 REASON FOR CONSULTATION: Infection of right foot. HISTORY This patient is known to the undersigned. She is a 56-year-old female with a diabetic foot. She had a big toe amputated 2009 and subsequent came to multiple operations ending with a transmetatarsal amputation in July of last year. She slowly healed this and did well. She states that 2 days ago she had a blister develop in her foot followed by fever and chills. She presented emergency room was found to have evidence of the deep infection. I have been asked see her in consultation by the same. PAST MEDICAL HISTORY/ REVIEW OF SYSTEMS: Past medical history, review of systems were all negative except for as stated in the history of present illness. FAMILY HISTORY AND SOCIAL HISTORY Type 2 diabetes mellitus, hypertriglyceridemia, denies cardiac disease or kidney problems. PAST SURGICAL HISTORY Left knee surgery Right knee surgery twice Hysterectomy. Left great toe amputated 2012. Right great toe amputated 2009. Multiple surgeries right foot 2015. MEDICATIONS: Omeprazole Metformin Atorvastatin Narco Aspirin ALLERGIES CODEINE MORPHINE PENICILLIN Although she states she has tolerated Keflex on multiple occasions in the past. FAMILY HISTORY Her brother committed suicide 4 years ago, her older sister lives in [place]. Grandfather with coronary artery disease and a grandmother with breast cancer. SOCIAL HISTORY She smoked since age 17, she quit back in July and restarted recently. She smokes a quarter to half-pack cigarettes per day. Alcohol denies, illicit drug denies. PHYSICAL EXAMINATION IN GENERAL: Alert cooperative pleasant female in no obvious distress. HEAD, EYES, EARS, NOSE, AND THROAT: Normocephalic, atraumatic. Pupils equal, round, reactive to light and accommodation with intact. NECK: Supple. CHEST: Chest is clear. HEART: Regular rate and rhythm. ABDOMEN: The abdomen is soft, nontender, normal bowel sounds. EXTREMITIES: The musculoskeletal examination of the right foot, there is redness and swelling, plantar medial aspect of the foot. There is a blister fluid-filled that looks like it purulent material. Redness is mostly in local zone. MRI scan was reviewed and reviewed the radiologist interpretation which shows no clear evidence of deep abscess or osteomyelitis. Soft tissue edema is noted. There is some artifact related to a metallic suture that is lateral. IMPRESSION 1. Status post Transmetacarpal amputation. 2. Diabetic foot. 3. Infection, possible deep abscess right foot. PLAN Irrigation debridement of skin, subcutaneous tissue, muscle of the right foot. CONSENT Her risks of surgery including infection, bleeding, loss of motion, continued pain need further surgery, neurologic vascular injury. The patient is to have surgery as outlined above. Dede Neumann MD [facility]/ /3:04 PM /4:03 PM
[2017-03-08] MEDS: CALCIUM/VITAMIN D 250 MG/125 U TAB PO SCH (16:26)
[2017-03-08 17:42] VITALS: BP 155/77; PULSE 91; RESP 20; TEMP 97.5; O2SAT 98
[2017-03-08 20:00] VITALS: BP 157/82; PULSE 89; RESP 20; TEMP 97.7; O2SAT 98
[2017-03-08] MEDS: ATORVASTATIN 20 MG TAB PO SCH (20:01)
[2017-03-08] MEDS: LEVOFLOXACIN 750 MG PREMIX INJ 150 ML IV SCH (20:02)
[2017-03-08] MEDS: SODIUM CHLORIDE 0.9% FLUSH 5 ML FLUSH IVF SCH (20:02)
[2017-03-08] MEDS ORDERED: PCA - TOTAL MG MORPHINE DELIVERED PER SHIFT SCH (22:00)
[2017-03-09] VITALS: BP 142/74; PULSE 83; PULSE 87; RESP 20; TEMP 98; O2SAT 98
[2017-03-09] MEDS: LACTATED RINGER'S 1000 ML INJ 1,000 ML IV SCH ×3 (00:49→20:49)
[2017-03-09] MEDS: HYDROmorphone HCL PF 1 MG/ML VIAL IV PRN ×5 (01:31→20:43)
[2017-03-09] MEDS: VANCOMYCIN INJ 900 MG in SODIUM CHLOR 0.9% 250 ML INJ 250 ML IV SCH (02:22)
[2017-03-09] MEDS ORDERED: PHARMACY ORDERED LAB ONE (02:45)
[2017-03-09 04:00] VITALS: BP 126/71; PULSE 84; RESP 20; TEMP 98.1; O2SAT 96
[2017-03-09] MEDS: INSULIN ASPART SUPPLEMENTAL SCALE SQ SCH ×4 (05:36→20:41)
[2017-03-09 07:00] VITALS: BP 147/72; PULSE 88; RESP 20; TEMP 97.6; O2SAT 94
--- NOTE | 2017-03-09 08:06 | PD.ORT.PN ---
Subjective Subjective Remarks Moderate right foot pain. She is getting norco and dilaudid. Appetite poor from surgery. Urinating well and passing gas. No other complaints. Questions about her surgery and condition. Objective Vitals Vital Signs Date Time Temp Pulse Resp B/P Pulse Ox O2 Delivery O2 Flow Rate FiO2 03/09/17 06:03 20 03/09/17 04:00 98.1 84 20 126/71 96 03/09/17 00:52 20 03/09/17 00:00 98.0 83 20 142/74 98 03/09/17 00:00 98.0 87 20 142/74 98 03/08/17 20:00 97.7 89 20 157/82 98 03/08/17 17:42 97.5 91 20 155/77 98 03/08/17 15:45 98.5 86 22 140/70 100 Nasal Cannula 2 03/08/17 15:30 84 18 133/71 100 Nasal Cannula 2 03/08/17 15:15 83 17 149/66 100 Nasal Cannula 2 03/08/17 15:00 88 22 149/80 100 Nasal Cannula 2 03/08/17 14:56 98.3 84 20 136/67 100 Nasal Cannula 2 03/08/17 12:16 98.4 92 20 133/73 98 03/08/17 08:28 98.5 82 20 142/70 97 I/O 03/08/17 03/08/17 03/08/17 03/09/17 03/09/17 03/09/17 07:00 15:00 23:00 07:00 15:00 23:00 Intake Total 1698 ml 580 ml 460 ml Output Total 0 ml Balance 1698 ml 580 ml 460 ml Intake Oral 480 ml 60 ml IV Total 1248 ml 100 ml 400 ml Other 450 ml Output Blood Draw 0 ml # Voids 2 2 # Bowel Movements 0 0 Result Diagram: 03/08/1782603/08/17826 Objective Remarks Sitting up in bed Just returned from using the restroom NAD VSS RLE Foot bandages clean, intact, mild swelling ankle, no erythema Dorsiflexes ankle well, +sens, +cap refill Assessment & Plan Ortho Post Op Day #: 1 Problem List: Assessment and Plan pod#1 s/p I&D Right foot, iodoform packing right foot abscess IV antibiotics per ID. Currently on Vanco and levquin. Dressing changes as written. NonWBing R foot due to wound. Ice and elevate. Pt has history of multiple abscesses R foot and multiple amputations toes / transmet, etc.Will follow. Tri Tabor Mar 09, 2017 08:06
[2017-03-09] MEDS: ACETAMINOPHEN/HYDROcodone 325 MG/7.5 MG TAB PO PRN ×2 (08:21→20:42)
[2017-03-09] MEDS: PANTOPRAZOLE SOD 40 MG DELAYED RELEASE TAB PO SCH (08:21)
[2017-03-09] MEDS: MULTIVITAMINS/MINERALS THERAPEUTIC TAB PO SCH (08:21)
[2017-03-09] MEDS: DOCUSATE SODIUM 50 MG/SENNA 8.6 MG TAB PO SCH ×2 (08:22→20:41)
[2017-03-09] MEDS: ASPIRIN EC 81 MG TABEC PO SCH (08:22)
[2017-03-09] MEDS: HEPARIN SODIUM - SQ 10,000 UNITS/ML VIAL SQ SCH ×2 (08:22→20:42)
[2017-03-09] MEDS: CALCIUM/VITAMIN D 250 MG/125 U TAB PO SCH ×3 (08:22→16:55)
[2017-03-09] MEDS: SODIUM CHLORIDE 0.9% FLUSH 5 ML FLUSH IVF SCH ×2 (08:22→20:41)
[2017-03-09 12:14] VITALS: BP 146/73; PULSE 85; RESP 20; TEMP 98.1; O2SAT 96
[2017-03-09] MEDS: ACETAMINOPHEN/HYDROcodone 325 MG/5 MG TAB PO PRN (13:16)
--- NOTE | 2017-03-09 13:31 | HHI.PR ---
Subjective Remarks Follow-up right foot infection. The patient states that it is less painful today. The pain medications are helping. No other complaints at this time. Objective Vitals Vital Signs Date Time Temp Pulse Resp B/P Pulse Ox O2 Delivery O2 Flow Rate FiO2 03/09/17 12:14 98.1 85 20 146/73 96 03/09/17 09:41 18 03/09/17 07:00 97.6 88 20 147/72 94 03/09/17 06:03 20 03/09/17 04:00 98.1 84 20 126/71 96 03/09/17 00:00 98.0 83 20 142/74 98 03/09/17 00:00 98.0 87 20 142/74 98 03/08/17 20:00 97.7 89 20 157/82 98 03/08/17 17:42 97.5 91 20 155/77 98 03/08/17 15:45 98.5 86 22 140/70 100 Nasal Cannula 2 03/08/17 15:30 84 18 133/71 100 Nasal Cannula 2 03/08/17 15:15 83 17 149/66 100 Nasal Cannula 2 03/08/17 15:00 88 22 149/80 100 Nasal Cannula 2 03/08/17 14:56 98.3 84 20 136/67 100 Nasal Cannula 2 I/O 03/08/17 03/08/17 03/08/17 03/09/17 03/09/17 03/09/17 07:00 15:00 23:00 07:00 15:00 23:00 Intake Total 1698 ml 580 ml 460 ml Output Total 0 ml Balance 1698 ml 580 ml 460 ml Intake Oral 480 ml 60 ml IV Total 1248 ml 100 ml 400 ml Other 450 ml Output Blood Draw 0 ml # Voids 2 2 # Bowel Movements 0 0 Result Diagram: 03/08/17 0827 03/08/17 0827 Imaging Last Impressions Chest X-Ray 03/07/17 1400 Signed Impressions: Service Date/Time: Tuesday, March 07, 2017 14:27 - CONCLUSION: No acute disease. Jared Matthews MD FACR Foot X-Ray 03/07/17 0000 Signed Impressions: Service Date/Time: Tuesday, March 07, 2017 14:23 - CONCLUSION: 1. Soft tissue swelling involving the stump at the site of previous metatarsal amputation without definite underlying erosive changes of the bones. 2. Tiny plantar and Achilles calcaneal spurs. Kamari Powell MD Foot MRI 03/07/17 0000 Signed Impressions: Service Date/Time: Tuesday, March 07, 2017 18:30 - CONCLUSION: 1. Amputation of all 5 digits the level of base of the metatarsals. 2. No definite evidence to suggest osteomyelitis. 3. Extensive soft tissue edema. 4. Apparent suture artifact. Evan Adams MD Objective Remarks General: No acute distress. Heart: Regular rate and rhythm. No murmur. Lungs: Clear to auscultation bilaterally. No wheezes, rales, or rhonchi. Breathing is nonlabored. Abdomen: Soft, nontender, nondistended. Extremities: No lower extremity edema. Right foot status post amputation at the mid foot. There is erythema and a surgical wound. The patient's nurse is changing her dressing at this time. Psych: Alert and oriented. Procedures 03/08/17 irrigation and debridement of deep ulcer with abscess, right foot Urinary Catheter: No Vascular Central Line Catheter: No A/P Problem List: (1) Sepsis ICD Code: A41.9 Status: Resolved (2) Cellulitis and abscess of foot ICD Code: L03.119 Status: Acute (3) Leukocytosis ICD Code: D72.829 Status: Resolved (4) Diabetes mellitus ICD Code: E11.9 Status: Chronic Assessment and Plan 1. Right foot cellulitis, sepsis: Appreciate orthopedic surgery recommendations. Status post irrigation and debridement. Continue wound care, dressing changes. Continue pain control. WBCs now within normal limits. Continue antibiotics. Consult infectious disease. 2. Diabetes mellitus: Monitor Accu-Cheks and cover with sliding scale insulin. Diabetic diet. 3. GI prophylaxis: Protonix. 4. DVT prophylaxis: Lovenox. Problem Qualifiers (1) Sepsis: Qualified Code: A41.9 - Sepsis, due to unspecified organism (2) Diabetes mellitus: Carson Caceres MD Mar 09, 2017 13:31
[2017-03-09] MEDS: VANCOMYCIN INJ 1,250 MG in SODIUM CHLOR 0.9% 250 ML INJ 250 ML IV SCH (14:21)
[2017-03-09 16:15] VITALS: BP 141/81; PULSE 78; RESP 20; TEMP 97; O2SAT 96
[2017-03-09 20:00] VITALS: BP 180/83; PULSE 95; RESP 18; TEMP 95.7; O2SAT 99
[2017-03-09] MEDS: LEVOFLOXACIN 750 MG PREMIX INJ 150 ML IV SCH (20:40)
[2017-03-09] MEDS: ATORVASTATIN 20 MG TAB PO SCH (20:41)
[2017-03-10] MEDS: HYDROmorphone HCL PF 1 MG/ML VIAL IV PRN ×4 (00:41→12:57)
[2017-03-10 03:06] VITALS: BP 140/75; PULSE 86; RESP 20; TEMP 96.9; O2SAT 97
[2017-03-10] MEDS: VANCOMYCIN INJ 1,250 MG in SODIUM CHLOR 0.9% 250 ML INJ 250 ML IV SCH ×2 (04:32→15:07)
[2017-03-10] MEDS: ACETAMINOPHEN/HYDROcodone 325 MG/7.5 MG TAB PO PRN ×3 (04:32→14:36)
[2017-03-10 05:30] VITALS: BP 150/65; PULSE 89; RESP 18; TEMP 97.7; O2SAT 96
[2017-03-10] MEDS: LACTATED RINGER'S 1000 ML INJ 1,000 ML IV SCH ×2 (06:49→16:09)
[2017-03-10] MEDS: INSULIN ASPART SUPPLEMENTAL SCALE SQ SCH ×3 (07:00→16:00)
[2017-03-10 07:52] LABS: BICARBONATE 25.4 MEQ/L (21.0-32.0); POTASSIUM 3.7 MEQ/L (3.5-5.1)
[2017-03-10 07:56] LABS: AUTOMATED NEUTROPHIL # 3.5 TH/MM3 (1.8-7.7); BASOPHIL # 0.1 TH/MM3 (0-0.2); EOSINOPHIL # 0.4 TH/MM3 (0-0.4); EOSINOPHIL % 5.7 % (0.0-4.0); HEMO FLAGS DIFF FINAL; LYMPH % 33.4 % (9.0-44.0); LYMPHOCYTE # 2.3 TH/MM3 (1.0-4.8); MEAN CORPUSCULAR HEMOGLOBIN 29.1 PG (27.0-34.0); MEAN CORPUSCULAR HGB CONC 33.1 % (32.0-36.0); MONO % 7.4 % (0.0-8.0); NEUT % 52.5 % (16.0-70.0); PLATELET COUNT 332 TH/MM3 (150-450); RED BLOOD COUNT 3.86 MIL/MM3 (4.00-5.30); RED CELL DISTRIBUTION WIDTH 13.2 % (11.6-17.2); WHITE BLOOD COUNT 6.7 TH/MM3 (4.0-11.0)
[2017-03-10 08:00] VITALS: BP 165/73; PULSE 96; RESP 18; TEMP 97.8; O2SAT 96
[2017-03-10] MEDS: SODIUM CHLORIDE 0.9% FLUSH 5 ML FLUSH IVF SCH (09:00)
[2017-03-10] MEDS: MULTIVITAMINS/MINERALS THERAPEUTIC TAB PO SCH (09:01)
[2017-03-10] MEDS: CALCIUM/VITAMIN D 250 MG/125 U TAB PO SCH ×2 (09:01→12:57)
[2017-03-10] MEDS: ASPIRIN EC 81 MG TABEC PO SCH (09:01)
[2017-03-10] MEDS: PANTOPRAZOLE SOD 40 MG DELAYED RELEASE TAB PO SCH (09:02)
[2017-03-10] MEDS: HEPARIN SODIUM - SQ 10,000 UNITS/ML VIAL SQ SCH (09:02)
[2017-03-10] MEDS: DOCUSATE SODIUM 50 MG/SENNA 8.6 MG TAB PO SCH (09:02)
--- NOTE | 2017-03-10 11:56 | HHI.PR ---
Subjective Remarks Follow-up right foot infection. The patient states that she feels better today. Pain is well controlled. She wants to go home as soon as she can. Objective Vitals Vital Signs Date Time Temp Pulse Resp B/P Pulse Ox O2 Delivery O2 Flow Rate FiO2 03/10/17 08:00 97.8 96 18 165/73 96 03/10/17 05:30 97.7 89 18 150/65 96 03/10/17 03:06 96.9 86 20 140/75 97 03/09/17 20:00 95.7 95 18 180/83 99 03/09/17 16:15 97.0 78 20 141/81 96 03/09/17 12:14 98.1 85 20 146/73 96 I/O 03/09/17 03/09/17 03/09/17 03/10/17 03/10/17 03/10/17 07:00 15:00 23:00 07:00 15:00 23:00 Intake Total 460 ml 1020 ml Output Total 0 ml Balance 460 ml 1020 ml Intake Oral 60 ml 1020 ml IV Total 400 ml Output Blood Draw 0 ml # Voids 2 5 4 # Bowel Movements 0 1 Result Diagram: 03/10/17 0625 03/10/17 0625 Imaging Last Impressions Chest X-Ray 03/07/17 1400 Signed Impressions: Service Date/Time: Tuesday, March 07, 2017 14:27 - CONCLUSION: No acute disease. Jared Matthews MD FACR Foot X-Ray 03/07/17 0000 Signed Impressions: Service Date/Time: Tuesday, March 07, 2017 14:23 - CONCLUSION: 1. Soft tissue swelling involving the stump at the site of previous metatarsal amputation without definite underlying erosive changes of the bones. 2. Tiny plantar and Achilles calcaneal spurs. Kamari Powell MD Foot MRI 03/07/17 0000 Signed Impressions: Service Date/Time: Tuesday, March 07, 2017 18:30 - CONCLUSION: 1. Amputation of all 5 digits the level of base of the metatarsals. 2. No definite evidence to suggest osteomyelitis. 3. Extensive soft tissue edema. 4. Apparent suture artifact. Evan Adams MD Objective Remarks General: No acute distress. Heart: Regular rate and rhythm. No murmur. Lungs: Clear to auscultation bilaterally. No wheezes, rales, or rhonchi. Breathing is nonlabored. Abdomen: Soft, nontender, nondistended. Extremities: No lower extremity edema. Right foot status post amputation at the mid foot. Bandage clean, dry, intact. Psych: Alert and oriented. Procedures 03/08/17 irrigation and debridement of deep ulcer with abscess, right foot Urinary Catheter: No Vascular Central Line Catheter: No A/P Problem List: (1) Sepsis ICD Code: A41.9 Status: Resolved (2) Cellulitis and abscess of foot ICD Code: L03.119 Status: Acute (3) Leukocytosis ICD Code: D72.829 Status: Resolved (4) Diabetes mellitus ICD Code: E11.9 Status: Chronic Assessment and Plan 1. Right foot cellulitis, sepsis: Appreciate orthopedic surgery recommendations. Status post irrigation and debridement. Continue wound care, dressing changes. Continue pain control. WBCs now within normal limits. Continue antibiotics. Infectious disease consultation is pending. Wound culture positive for MSSA. 2. Diabetes mellitus: Monitor Accu-Cheks and cover with sliding scale insulin. Diabetic diet. 3. GI prophylaxis: Protonix. 4. DVT prophylaxis: Lovenox. Discharge Planning Plan for discharge home when cleared by orthopedic surgery and infectious disease. Problem Qualifiers (1) Sepsis: Qualified Code: A41.9 - Sepsis, due to unspecified organism (2) Diabetes mellitus: Carson Caceres MD Mar 10, 2017 11:56
[2017-03-10 12:00] VITALS: BP 165/74; PULSE 82; RESP 18; TEMP 97.7; O2SAT 96
[2017-03-10] MEDS ORDERED: PHARMACY ORDERED LAB ONE (14:45)
--- NOTE | 2017-03-10 15:16 | PD.ID.CON ---
History of Present Illness Service ID Consult Requested By Dr Castillo Reason for Consult foot abscess Primary Care Physician Jania Mauro MD Diagnoses: History of Present Illness Patient is a 56-year-old diabetic/tobacco positivei female with a diabetic right foot sp multiple procedures including R hallux amputation followed by transmetatarsal amputation 6 months ago . She presentaed yaday with sweeliing redness and pain of right foot She presented with no fevers but she has leukocytosis of 23 K and lactic acidosis. Her otyheer vitals signs were within norm,al limits MRI scan shows evidence of significant edema. and probably a small deep abscess. She was seen by Dr Fito Benson and underwent Irrigation and debridement right foot debridement of deep ulcer with abscess and packing with iodoform gauze Mar 08, 2017 by Operation findings included a deep abscess into the soft tissues. Wound clx are positive for MSSA, blood cultures negative at 3 days Review of Systems Except as stated in HPI: all other systems reviewed are Neg Past Family Social History Allergies: Coded Allergies: Codeine (Verified Allergy, Severe, Hives, 03/07/17) Morphine (Verified Allergy, Severe, rash, 03/07/17) Penicillin (Verified Allergy, Severe, Hives, 03/07/17) Pt reports she has tolerated Keflex on multiple occassions in past. Uncoded Allergies: STEROIDS (Allergy, Severe, Hives, 07/25/16) Past Medical History DM Hypertriglyceridemia Past Surgical History Left knee Right knee x 2 Hysterectomy Left great toe amputated 2012 Right great toe amputated 2009 Active Ordered Medications Medications where reviewed in EMR Antibiotics Include: vancomycin levaquine Family History Brother committed suicide 4 years ago Oldest sister lives in [facility] with CAD GM with breast CA Social History Tobacco: smokes since age 17; quit smoking in July and then restarted smoking; currently smokes 1/ - 1 ppd Alcohol: denies Illicit Drugs: denies . Physical Exam Vital Signs Vital Signs Date Time Temp Pulse Resp B/P Pulse Ox O2 Delivery O2 Flow Rate FiO2 03/10/17 12:00 97.7 82 18 165/74 96 03/10/17 08:00 97.8 96 18 165/73 96 03/10/17 05:30 97.7 89 18 150/65 96 03/10/17 03:06 96.9 86 20 140/75 97 03/09/17 20:00 95.7 95 18 180/83 99 03/09/17 16:15 97.0 78 20 141/81 96 Physical Exam CONSTITUTIONAL/GENERAL: This is an overweight femael patient, in no apparent distress. TUBES/LINES/DRAINS: SKIN: No jaundice, rashes, or lesions. Ecchymoses on upper extremities. No wounds seen anteriorly. Skin temperature appropriate. Not diaphoretic. HEAD: Atraumatic. Normocephalic. EYES: Pupils equal and round and reactive. No injection or drainage. Fundi not examined. ENT: Hearing grossly normal. Oral mucosae moist NECK: Trachea midline. Supple, nontender. CARDIOVASCULAR: Regular rate and rhythm without murmurs, gallops, or rubs. No JVD. Peripheral pulses symmetric. RESPIRATORY/CHEST: Symmetric, unlabored respirations. Clear to auscultation. Breath sounds equal bilaterally. No wheezes, rales, or rhonchi. GASTROINTESTINAL: Abdomen soft, non-tender, nondistended. No hepato-splenomegaly , or palpable masses. No guarding. Bowel sounds present. GENITOURINARY: Without palpable bladder distension. MUSCULOSKELETAL: Extremities without clubbing, cyanosis, or edema. STATUS LOCALIS: R toot with well healed tranmetatarsal amputation scar she has some edema, no erythema of the foot She has a plantar wound just ditally to the heel with minimal odorless serous drainage on the dressing LYMPHATICS: No palpable cervical or supraclavicular adenopathy. + unilaterla nontender R inguinal adenopathy NEUROLOGICAL: Awake and alert. Motor and sensory grossly within normal limits. Follows commands. Clear speech . Moves all extremities. PSYCHIATRIC: No obvious anxiety/depression. no apparent hallucinations or other psychotic thought process. Laboratory Laboratory Tests Test 03/10/17 06:25 White Blood Count 6.7 Red Blood Count 3.86 Hemoglobin 11.3 Hematocrit 34.0 Mean Corpuscular Volume 88.0 Mean Corpuscular Hemoglobin 29.1 Mean Corpuscular Hemoglobin 33.1 Concent Red Cell Distribution Width 13.2 Platelet Count 332 Mean Platelet Volume 8.7 Neutrophils (%) (Auto) 52.5 Lymphocytes (%) (Auto) 33.4 Monocytes (%) (Auto) 7.4 Eosinophils (%) (Auto) 5.7 Basophils (%) (Auto) 1.0 Neutrophils # (Auto) 3.5 Lymphocytes # (Auto) 2.3 Monocytes # (Auto) 0.5 Eosinophils # (Auto) 0.4 Basophils # (Auto) 0.1 CBC Comment DIFF FINAL Differential Comment Sodium Level 140 Potassium Level 3.7 Chloride Level 107 Carbon Dioxide Level 25.4 Anion Gap 8 Blood Urea Nitrogen 10 Creatinine 0.64 Estimat Glomerular Filtration 96 Rate Random Glucose 202 Calcium Level 9.0 Date/Time Procedure Status Source Growth 03/08/17 14:38 Gram Stain - Final Complete Wound Foot 03/08/17 14:38 Wound Culture - Final Complete Staphylococcus Aureus 03/08/17 14:38 Fungal Smear - Final Resulted Wound Foot NO FUNGAL ELEMENTS SEEN. 03/08/17 14:38 Fungal Culture Resulted Wound Foot Pending 03/08/17 14:38 Acid Fast Stain - Final Resulted Wound Foot NO ACID FAST BACILLI SEEN 03/08/17 14:38 Mycobacterial Culture Resulted Wound Foot Pending 03/07/17 14:42 Aerobic Blood Culture - Preliminary Resulted Blood Peripheral NO GROWTH IN 3 DAYS 03/07/17 14:42 Anaerobic Blood Culture - Preliminary Resulted Blood Peripheral NO GROWTH IN 3 DAYS Result Diagram: 03/10/17 0625 03/10/17 0625 Imaging Last Impressions Chest X-Ray 03/07/17 1400 Signed Impressions: Service Date/Time: Tuesday, March 07, 2017 14:27 - CONCLUSION: No acute disease. Jared Matthews MD FACR Foot X-Ray 03/07/17 0000 Signed Impressions: Service Date/Time: Tuesday, March 07, 2017 14:23 - CONCLUSION: 1. Soft tissue swelling involving the stump at the site of previous metatarsal amputation without definite underlying erosive changes of the bones. 2. Tiny plantar and Achilles calcaneal spurs. Kamari Powell MD Foot MRI 03/07/17 0000 Signed Impressions: Service Date/Time: Tuesday, March 07, 2017 18:30 - CONCLUSION: 1. Amputation of all 5 digits the level of base of the metatarsals. 2. No definite evidence to suggest osteomyelitis. 3. Extensive soft tissue edema. 4. Apparent suture artifact. Evan Adams MD Assessment and Plan Assessment and Plan Abscess right foot, MSSA Diabetic right foot, confined to skin and soft tissue, clinically deep abscess Status post transmetatarsal amputation on that foot SIRS on presentation with severe leukocytosis, over 23K and mild lactic acidosis Tobaccoism Diabetes Preferably 2-4 weeks of IV abx; she can be switched to oral abx if shows signs of rapid improvement oral option include clindamycin 300 mg po qid Discussed Condition With case mngr Telma Griffiths MD Mar 10, 2017 15:16
--- NOTE | 2017-03-10 15:22 | PD.ORT.PN ---
Subjective Subjective Remarks Patient comfortable Objective Vitals Vital Signs Date Time Temp Pulse Resp B/P Pulse Ox O2 Delivery O2 Flow Rate FiO2 03/10/17 12:00 97.7 82 18 165/74 96 03/10/17 08:00 97.8 96 18 165/73 96 03/10/17 05:30 97.7 89 18 150/65 96 03/10/17 03:06 96.9 86 20 140/75 97 03/09/17 20:00 95.7 95 18 180/83 99 03/09/17 16:15 97.0 78 20 141/81 96 I/O 03/09/17 03/09/17 03/09/17 03/10/17 03/10/17 03/10/17 07:00 15:00 23:00 07:00 15:00 23:00 Intake Total 460 ml 1020 ml Output Total 0 ml Balance 460 ml 1020 ml Intake Oral 60 ml 1020 ml IV Total 400 ml Output Blood Draw 0 ml # Voids 2 5 4 # Bowel Movements 0 1 Result Diagram: 03/10/17 0625 03/10/17 0625 Objective Remarks Sitting up in bed Just returned from using the restroom NAD VSS RLE Foot bandages clean, intact, mild swelling ankle, no erythema Dorsiflexes ankle well, +sens, +cap refill New dressing noted in place Assessment & Plan Assessment and Plan pod#2 s/p I&D Right foot, iodoform packing right foot abscess IV antibiotics per ID. Currently on Vanco and levquin. Dressing changes as written. Non weight bearing R foot due to wound. Ice and elevate. Pt has history of multiple abscesses R foot and multiple amputations toes / transmet, etc.Will follow.\ Monitor Johnny Lucero MD Mar 10, 2017 15:22
--- NOTE | 2017-03-10 15:31 | HHI.FF ---
Infusion Therapy Location of Infusion Therapy: Home [facility] IV Infusion Order Patient Information Patient Weight 78.1 kg Diagnosis: Coded Allergies: Codeine (Verified Allergy, Severe, Hives, 03/07/17) Morphine (Verified Allergy, Severe, rash, 03/07/17) Penicillin (Verified Allergy, Severe, Hives, 03/07/17) Pt reports she has tolerated Keflex on multiple occassions in past. Uncoded Allergies: STEROIDS (Allergy, Severe, Hives, 07/25/16) Administer Medication Start Treatment: Mar 10, 2017 Stop Treatment: Apr 06, 2017 Additional Information Venous access: PICC Line Additional Instructions [x] Peripheral flush and dressing changes per protocol [x] Implanted port and central line ordering clinician: * Implanted port: 10 ml Normal Saline followed by 5 ml Heparin 100 units/ml Heparin flush after each use and monthly to maintain. [] May leave port accessed during therapy. [] May leave peripheral site accessed for duration of therapy. [x] If patient has SOB or respiratory distress, check oxygen saturation. If less than 90% or clinical signs of respiratory distress, administer oxygen at 2 L/min. via nasal cannula and notify physician. [x] Anaphylaxis/Reaction orders: * Stop infusion. * Keep IV line open with saline flush. * Notify physician. * Monitor vital signs every 15 minutes until symptoms resolve. * Check Oxygen saturation; Oxygen at 2 L/min. via nasal cannula if less than 90% or clinical signs of respiratory distress. * Administer diphenhydramine (Benadryl) 25 mg IV STAT, (unless patient has received as pre-med). May repeat once, if necessary. * Solu-Cortef 250 mg IVP over 30-60 seconds, use 100 mg vials for each dissolution. * Epinephrine (1mg/1 ml) 0.3 mg subcutaneously or IVP now with any signs of respiratory distress. * Check with physician for new additional pre-med orders if patient is re- challenged or re-treated. [x] May remove PICC line when treatment complete, after confirming with Physician. [x] If the patient is admitted to the hospital, the ED, or transferred via [facility] , complete transfer form including medication reconciliation order sheet. Laboratory Tests Additional Information Disregard this record Pt refused IV treatment Telma Griffiths MD Mar 10, 2017 15:31
[2017-03-10 16:00] VITALS: BP 154/72; PULSE 86; RESP 18; TEMP 98; O2SAT 95
--- NOTE | 2017-03-10 16:40 | HHI.PR ---
Addendum to Inpatient Note Additional Information Pt refused PICC line and IV abx treatment and insists on leaving Will d/c her on clindamycin x 3 weeks Pt need to fu with Dr Carmen Hummel RN script written, printed - nurse Batsheva calderónied Telma Griffiths MD Mar 10, 2017 16:40
[2017-03-10] MEDS ORDERED: CLIN1CAP6 PO (16:41)
[2017-03-10] MEDS ORDERED: CLINDAMYCIN 150 MG CAP PO SCH (17:00)
[2017-03-11] MEDS ORDERED: VANCOMYCIN 1,500 MG/NS 500 ML IV SCH ×2 (03:00)
--- NOTE | 2017-03-11 07:28 | HHI.DS ---
Discharge Summary Admission Date Mar 07, 2017 at 17:18 Discharge Date: Mar 10, 2017 Admitting Diagnosis SEPSIS; L foot cellulitis; r/o osteomyelitis (1) Sepsis ICD Code: A41.9 (2) Cellulitis and abscess of foot ICD Code: L03.119 (3) Leukocytosis ICD Code: D72.829 (4) Diabetes mellitus ICD Code: E11.9 Procedures 03/08/17 irrigation and debridement of deep ulcer with abscess, right foot Brief History - From Admission The patient is seen in her hospital room. She reports that she had a blister on her foot noted Sunday after she had run some errands and by Sunday morning, the foot was swollen, hot, and hurt to stand on. Denies fevers. WBC was 18 in PCP office and was 23 in ED. Big toe amputated in 2009, 07/12/2016 had rest of toes amputated by Dr. Morales. Has T2DM, reports that her last HgA1C was 7.0. . CBC/BMP: 03/10/17 0625 03/10/17 0625 Significant Findings Laboratory Tests Test 03/08/17 03/08/17 03/10/17 03/10/17 08:27 08:29 06:25 14:50 Red Blood Count 3.56 MIL/MM3 3.86 MIL/MM3 (4.00-5.30) (4.00-5.30) Hemoglobin 10.3 GM/DL 11.3 GM/DL (11.6-15.3) (11.6-15.3) Hematocrit 31.6 % 34.0 % (35.0-46.0) (35.0-46.0) Neutrophils (%) (Auto) 72.5 % (16.0-70.0) Neutrophils # (Auto) 7.8 TH/MM3 (1.8-7.7) Chloride Level 108 MEQ/L (98-107) Random Glucose 150 MG/DL 202 MG/DL (74-106) (74-106) Erythrocyte Sedimentation Rate 69 mm/hr (0-30) Eosinophils (%) (Auto) 5.7 % (0.0-4.0) Vancomycin Level Trough 11.1 MCG/ML (5.0-10.0) Imaging Last Impressions Chest X-Ray 03/07/17 1400 Signed Impressions: Service Date/Time: Tuesday, March 07, 2017 14:27 - CONCLUSION: No acute disease. Jared Matthews MD FACR Foot X-Ray 03/07/17 0000 Signed Impressions: Service Date/Time: Tuesday, March 07, 2017 14:23 - CONCLUSION: 1. Soft tissue swelling involving the stump at the site of previous metatarsal amputation without definite underlying erosive changes of the bones. 2. Tiny plantar and Achilles calcaneal spurs. Kamari Powell MD Foot MRI 03/07/17 0000 Signed Impressions: Service Date/Time: Tuesday, March 07, 2017 18:30 - CONCLUSION: 1. Amputation of all 5 digits the level of base of the metatarsals. 2. No definite evidence to suggest osteomyelitis. 3. Extensive soft tissue edema. 4. Apparent suture artifact. Evan Adams MD PE at Discharge General: No acute distress. Heart: Regular rate and rhythm. No murmur. Lungs: Clear to auscultation bilaterally. No wheezes, rales, or rhonchi. Breathing is nonlabored. Abdomen: Soft, nontender, nondistended. Extremities: No lower extremity edema. Right foot status post amputation at the mid foot. Bandage clean, dry, intact. Psych: Alert and oriented. Hospital Course The patient was admitted for management of right foot infection. Orthopedic surgery was consulted. Patient had I&D done of abscess in right foot. She was continued on antibiotics. Infectious disease was consulted. Cultures grew MSSA. The patient signed out AGAINST MEDICAL ADVICE prior to being cleared for discharge by orthopedic surgery. Pt Condition on Discharge: Fair Discharge Disposition: Discharge Home (AGAINST MEDICAL ADVICE) Discharge Time: <= 30 minutes Discharge Instructions New Medications: Clindamycin (Clindamycin) 300 Mg Cap 300 MG PO Q6H Infection Days 21 Ref 0 CAP Carson Caceres MD Mar 11, 2017 07:28
[2017-03-12] MEDS ORDERED: PHARMACY ORDERED LAB ONE (14:45)
== END 2017-03-10 17:11 | disposition left against medical advice (07) | DRG 854 ==
LOC: NEPC 13:41 → NEDA 17:18 → N05B 20:19
PROVIDERS: ADMIT Family Medicine; ATTEND Family Medicine
PROC: 0JDQ0ZZ Extraction of Right Foot Subcutaneous Tissue and Fascia, Open Approach (ICD-10-PCS; principal; 2017-03-08 14:16)
DX: A41.01 Sepsis due to Methicillin susceptible Staphylococcus aureus (principal); L02.611 Cutaneous abscess of right foot; E87.2 Acidosis; E11.40 Type 2 diabetes mellitus with diabetic neuropathy, unspecified; E11.621 Type 2 diabetes mellitus with foot ulcer; L03.115 Cellulitis of right lower limb; E87.1 Hypo-osmolality and hyponatremia; M19.90 Unspecified osteoarthritis, unspecified site; K21.9 Gastro-esophageal reflux disease without esophagitis; E78.1 Pure hyperglyceridemia; L97.519 Non-pressure chronic ulcer of other part of right foot with unspecified severity; F17.210 Nicotine dependence, cigarettes, uncomplicated; Z79.84 Long term (current) use of oral hypoglycemic drugs; Z88.0 Allergy status to penicillin; Z88.5 Allergy status to narcotic agent; Z89.412 Acquired absence of left great toe; Z89.421 Acquired absence of other right toe(s); Z89.431 Acquired absence of right foot
CPT/HCPCS: 71010; 73620; 73720; 76937; 80048; 80053; 80202; 81001; 82948; 83605; 85025; 85610; 85652; 85730; 86403; 87015; 87040; 87070; 87102; 87116; 87205; 87206; 93005; 94150; 96361; 96365; 96368; 96375; A9579; J1170; J1580; J1644; J1815; J1885; J1956; J2250; J3010; J3370; J7030; J7050; J7120

== ENCOUNTER → 2017-05-04 | Outpatient (CLI) | payer OTHER ==
[~2017-05-04] MED LIST changes: +CEFA2SOL IV; +CLIN1CAP6 PO; +EPIN1INJ21 IV PUSH; +EPIN1INJ21 SQ; -ERGO1CAP30 PO; +GADODIAMIDE PF 287 MG/ML 5 ML VIAL (for RAD MRI) IVCONTRAST ONE; +GLIP5TAB8 PO; +HYDR-3583 PO; +LISI-515 PO; +NORC5TAB PO; +SOLU250I IV PUSH
--- NOTE | 2017-05-04 09:24 | RADRPT ---
EXAM DATE/TIME: 05/04/2017 07:44 [facility] COMPARISON: FOOT RIGHT LIMITED (2VWS), March 07, 2017, 14:23. MRI FOOT RIGHT W & W/O CONTRAST, March 07, 2017, 18: 30. INDICATIONS : Abscess. CONTRAST: 14 cc Omniscan (gadodiamide) IV MEDICAL HISTORY : Diabetes mellitus type 2. SURGICAL HISTORY : Hysterectomy. Amputation partial right foot. ENCOUNTER: Subsequent ACUITY: 4-6 months PAIN SCORE: 3/10 LOCATION: Right foot TECHNIQUE: Multiplanar, multisequence MRI examination was performed without contrast and after the intravenous a dministration of gadolinium. FINDINGS: There has been prior amputation at the proximal metatarsals. Bone marrow signal is within normal limi ts. No fracture is identified. At the plantar aspect soft tissue superficial to the distal aspect of the first metatarsal, there is a T2 hyperintense subcutaneous fluid collection that demonstrates rim enhancement. It measures approximately 1.1 x 1.1 x 1.5 cm. No clear connection with the skin is ident ified. The deepest aspect is 15 mm from the skin surface. The medial plantar aspect of musculature de monstrates mild edema. Tendons demonstrate no abnormality. Distal Achilles tendon is normal. There is a stable focus of susceptibility artifact at the lateral aspect of the foot in the distal soft tissu es. Prior x-ray demonstrated a linear metallic structure measuring 6 mm. CONCLUSION: 1. There is a subcutaneous abscess at the medial plantar aspect soft tissues superficial to the remai carmen first metatarsal. The abscess measures up to 15 mm. There is no clear connection with the skin s urface. 2. Bone marrow signal is within normal limits and there are no findings to indicate osteomyelitis. 3. Stable susceptibility artifact related to a 6 mm linear metallic structure in the distal lateral f oot soft tissues. Sunny Gan MD on May 04, 2017 at 9:14 Board Certified Radiologist. This report was verified electronically.
== END ==
LOC: HRAD 07:11
PROVIDERS: ATTEND Orthopaedic Surgery Orthopaedic Surgery of the Spine
DX: L03.115 Cellulitis of right lower limb (principal)
CPT/HCPCS: 73720; A9579

== ENCOUNTER 2017-05-08 08:59 | Inpatient (IN) | payer OTHER ==
[~2017-05-08] VITALS: Ht 162.6 cm; Wt 72.6 kg
[~2017-05-08 08:59] MED LIST changes: -CEFA2SOL IV; -EPIN1INJ21 IV PUSH; -EPIN1INJ21 SQ; -GADODIAMIDE PF 287 MG/ML 5 ML VIAL (for RAD MRI) IVCONTRAST ONE; -GLIP5TAB8 PO; -HYDR-3583 PO; -LISI-515 PO; -SOLU250I IV PUSH
[2017-05-08] MEDS ORDERED: ceFAZolin 2 GM PREMIX 50 ML IV SCH (09:45)
[2017-05-08] MEDS ORDERED: POVIDONE IODINE 5% (ANTISEPSIS KIT) 4 APPLICATIONS EACH NARE PRN (09:45)
[2017-05-08] MEDS ORDERED: METOPROLOL TARTRATE 25 MG TAB PO PRN (09:45)
[2017-05-08] MEDS ORDERED: INSULIN HUMAN REGULAR 1,000 UNITS/10 ML VIAL SQ PRN (09:45)
[2017-05-08] MEDS ORDERED: POVIDONE IODINE 7.5% SCRUB 118 ML BOTTLE TOPICAL SCH (09:45)
[2017-05-08] MEDS ORDERED: SODIUM CHLORID 0.9% 500 ML IV PRN (09:45)
[2017-05-08] MEDS ORDERED: LACTATED RINGER'S 1000 ML IV PRN (09:45)
[2017-05-08] MEDS ORDERED: VANCOMYCIN 1000 MG/NS 250 ML (for <70 kg) IV SCH ×2 (09:45)
[2017-05-08] MEDS ORDERED: CHLORHEXIDINE GLUCONATE 2 % 1 PACK (2 CLOTHS) TOPICAL PRN (09:45)
--- NOTE | 2017-05-08 09:50 | MH ---
cc: DEDE NEUMANN DATE OF ADMISSION: 05/08/2017 ADMITTING DIAGNOSIS: Deep wound infection, left foot. HISTORY This is a 56-year-old diabetic female known to the [facility]. She developed a severe foot infection eventually came to mid foot amputation. The patient developing a new abscess. The patient had a wound that started developing about two to three months ago. She had IV antibiotics for this. She is developing a deep abscess of the left foot presents now for irrigation and debridement. Eventually the patient may come the below-knee amputation if infection cannot be controlled. PAST MEDICAL HISTORY, SOCIAL HISTORY AND FAMILY HISTORY REVIEW OF SYSTEMS See attached notes. PHYSICAL EXAMINATION IN GENERAL: 56-year-old female in moderate stress with a left foot. HEAD, EYES, EARS, NOSE, AND THROAT: Normocephalic, atraumatic. Pupils equal, round, reactive to light and accommodation motion packed NECK: Supple. CHEST: Chest is clear. Heart: Regular rate and rhythm. ABDOMEN: Soft, nontender, normoactive bowel sounds. MUSCULOSKELETAL: The musculoskeletal examination, right foot mid foot amputation, redness, swelling, minimal drainage is seen. IMPRESSION 1. Abscess right foot. 2. Diabetes mellitus. 3. History of previous mid-foot amputation. PLAN Irrigation debridement of skin. Subcutaneous tissue, muscle and tendon of the right foot. CONSENT The risks of surgery including infection, bleeding, loss of motion, continued pain need for further surgery, neurologic vascular injury. The patient's understands the issues and wants to press on with surgery as outlined above. Dede Neumann MD [facility] [place]/ /7:03 AM /9:22 AM
[2017-05-08 11:01] LABS: BICARBONATE 26.4 MEQ/L (21.0-32.0); POTASSIUM 4.2 MEQ/L (3.5-5.1)
[2017-05-08 11:29] LABS: HEMATOCRIT 37.5 % (35.0-46.0); MEAN CELL VOLUME 86.9 FL (80.0-100.0); MEAN CORPUSCULAR HEMOGLOBIN 28.3 PG (27.0-34.0); MEAN CORPUSCULAR HGB CONC 32.6 % (32.0-36.0); PLATELET COUNT 323 TH/MM3 (150-450); RED BLOOD COUNT 4.31 MIL/MM3 (4.00-5.30); RED CELL DISTRIBUTION WIDTH 13.5 % (11.6-17.2); WHITE BLOOD COUNT 13.2 TH/MM3 (4.0-11.0)
[2017-05-08 11:34] LABS: HEMO FLAGS AUTO DIFF
[2017-05-08] MEDS ORDERED: ONDANSETRON HCL 4 MG/2 ML VIAL IV PUSH ONE (12:00)
[2017-05-08] MEDS ORDERED: PROPOFOL 200 MG/20 ML AMP IV ONE (12:00)
[2017-05-08 12:04] LABS: BANDS 3 % (0-6); EOSINOPHILS 4 % (0-4); NEUTROPHIL # MANUAL DIFF 9.1 TH/MM3 (1.8-7.7); PLATELET ESTIMATE SMEAR NORMAL (NORMAL); PLATELET MORPHOLOGY NORMAL (NORMAL); POLYS (SEG NEUTROPHILS) 66 % (16-70); SCAN/DIFF FINAL DIFF MANUAL; WBC DIFF SAMPLE 100
[2017-05-08] MEDS ORDERED: GENTAMICIN SULFATE 80 MG/2 ML VIAL ONE (12:42)
[2017-05-08] MEDS ORDERED: MIDAZOLAM HCL 2 MG/2 ML VIAL ONE (13:09)
[2017-05-08] MEDS ORDERED: ACETAMINOPHEN 1000 MG/100 ML 100 ML IV ONE (13:10)
[2017-05-08] MEDS ORDERED: FAMOTIDINE 20 MG/2 ML VIAL ONE (13:11)
[2017-05-08] MEDS ORDERED: VANCOMYCIN HCL 1000 MG VIAL ONE (13:26)
[2017-05-08] MEDS ORDERED: SODIUM CHLORIDE 0.9% FLUSH 5 ML FLUSH IVF PRN (14:15)
[2017-05-08] MEDS ORDERED: Post-op Orders (for Pharmacy) MISC XX ONE (14:15)
[2017-05-08] MEDS ORDERED: NALOXONE HCL 0.4 MG/ML AMP IV PRN (14:15)
--- NOTE | 2017-05-08 14:22 | PD.OP ---
Operative Report Date of Surgery: May 08, 2017 Preoperative Diagnosis: Abscess right foot. Status post transmetatarsal amputation. Diabetes mellitus Postoperative Diagnosis: Same Procedure: Irrigation and debridement of skin subcutaneous tissue and muscle of the right foot Anesthesia: Gen. Surgeon: Fito Benson Burr Sander(s): ELIZABETH Veronica Operation and Findings: EBL: []cc INDICATION: [] NOTE: []ELIZABETH was present for the entire surgical procedure as my assistant press operator. In my medical opinion her skill and care was necessary for the proper management of this patient. PROCEDURE: The patient was brought to the operating room and anesthetized in the supine position. A tourniquet was placed around the right leg in the thigh. The right foot and leg was scrubbed with alcohol followed by Hibiclens followed by chloro prep and draped sterilely. A timeout was done. Antibiotics were held because of a impending culture of an abscess. The wound was explored. Through 2 small areas of mild draining material close to the plantar aspect of the medial aspect of the forefoot. These wounds were excised and explored. There was a deep abscess that measured approximately 2 x 2 centimeters. This was debrided completely and brought down to bleeding material. This debridement of skin subcutaneous tissue and muscle of the right foot. Superficial and deep cultures were obtained. This was irrigated copious with antibiotic irrigation. It was then packed with iodoform gauze. A sterile dressing was applied. The sponge count and needle counts and instrument counts were all correct. The patient tolerated the procedure well as taken to the recovery room in satisfactory condition. FINDINGS: There was evidence of a chronic deep abscess with very little purulent material. This appeared to be mostly necrotic debris as if this is a partially treated volar wound. No complication was appreciated Fito Benson MD May 08, 2017 14:22
[2017-05-08] MEDS ORDERED: DO NOT ADM ANY ANTICOAGULANT DRUGS PRN (14:23)
[2017-05-08] MEDS ORDERED: *HYDROmorphone PF 1 MG VIAL PERIprocedural Use ONLY ONE ×2 (14:49→15:13)
[2017-05-08] MEDS ORDERED: DEXTROSE 50% IN WATER 50 ML VIAL(D50) IV PRN (15:45)
[2017-05-08] MEDS ORDERED: GLUCAGON 1 MG/ML VIAL OTHER PRN (15:45)
--- NOTE | 2017-05-08 15:50 | PD.CONS ---
HPI Service [facility] Hospitalists Consult Requested By Fito Benson MD Reason for Consult Medical management Primary Care Physician Jania Mauro MD Diagnoses: History of Present Illness This is a 56-year-old female with a past medical history significant for diabetes, dyslipidemia, DDD/HNP lumbar spine and history of severe right foot infection with necrotizing fasciitis/gas gangrene requiring midfoot amputation who recently developed a new abscess approximately 2-3 months ago and despite treatment with IV antibiotics failed to improve and underwent an I& D of the skin, subcutaneous tissue and muscle of the right foot performed by Dr. Benson earlier today and now hospitalist services have been consulted for medical management. Additionally, infectious disease has been consulted. Patient's most recent admission was 03/08/17 for sepsis and cellulitis of the right foot. MRI at that time did not show any signs of osteomyelitis but did show extensive soft tissue edema. Patient underwent I&D of the right foot by Dr. Benson. Wound cultures were positive for MSSA. At that time, she was seen in consultation by infectious disease who recommended 2-4 weeks of IV antibiotics. However, patient left AGAINST MEDICAL ADVICE on 03/11/17. Patient seen and examined in PACU today. Patient complains that her right foot "feels like it's in a vice supervisor shuttle veneering". She's just been given another dose of Dilaudid by her PACU nurse. She reports taking up to 4 Lortab a day at home prior to this surgical procedure. She denies any other acute medical complaints. She denies any fever or chills. She denies any dizziness or lightheadedness. Denies any nausea, vomiting or abdominal pain. Denies any chest pain or shortness of breath. She denies any urinary complaints and states her last bowel movement was at 11:15 last night. All other systems reviewed and are negative. Review of Systems Except as stated in HPI: all other systems reviewed are Neg Past Family Social History Allergies: Coded Allergies: codeine (Unverified Allergy, Severe, Hives, 05/08/17) morphine (Unverified Allergy, Severe, rash, 05/08/17) penicillin G (Unverified Allergy, Severe, Hives, 05/08/17) Pt reports she has tolerated Keflex on multiple occassions in past. Uncoded Allergies: STEROIDS (Allergy, Severe, Hives, 07/25/16) Past Medical History Right foot abscess with history of necrotizing fasciitis/gas gangrene of the right foot and right leg with cultures positive for MSSA History of MSSA bacteremia GERD Diabetes mellitus Dyslipidemia DDD/HNP lumbar spine with chronic low back pain Past Surgical History Status post I&D of the skin, subcutaneous tissue and muscle the right foot earlier today by Dr. Benson I&D right foot debridement deep ulcer with abscess and packing with iodoform gauze 03/08/17 History of previous right midfoot amputation History of I&D right leg anterior compartment Left great toe amputation Bilateral knee meniscus repair Hysterectomy Reported Medications Clindamycin 300 mg by mouth every 6 hours Metformin 500 mg 2 tabs by mouth twice a day Omeprazole 40 mg by mouth daily Atorvastatin 20 mg by mouth daily Neurontin 300mg by mouth 3 times a day Aspirin 81 mg daily Multivitamin daily Active Ordered Medications Current Medications Medications (Trade) Dose Ordered Sig/Karen Route Start Time Stop Time Status Last Admin Lactated Ringer's 1,000 ml @ 30 mls/hr Q24H PRN IV 05/08/17 09:45 05/11/17 09:44 05/08/17 10:15 Sodium Chloride 500 ml @ 30 mls/hr [id number] PRN IV 05/08/17 09:45 05/11/17 09:44 (Lopressor) 25 mg OPERATIONS OFFICER AFLOAT PRN PO 05/08/17 09:45 05/11/17 09:44 (Betadine 5% Antisepsis Kit) 1 applic OPERATIONS OFFICER AFLOAT PRN EACH NARE 05/08/17 09:45 05/11/17 09:44 (Chlorhexidine 2% Cloth) 3 pack OPERATIONS OFFICER AFLOAT PRN TOPICAL 05/08/17 09:45 05/11/17 09:44 05/08/17 10:46 (NovoLIN R INJ) See Protocol Table ... OPERATIONS OFFICER AFLOAT PRN SQ 05/08/17 09:45 05/11/17 09:44 (Betadine 7.5% Scrub) 1 applic ONCE TOPICAL 05/08/17 09:45 05/11/17 09:44 05/08/17 10:47 Vancomycin HCl 1000 mg/Sodium Chloride 250 ml @ 250 mls/hr OPERATIONS OFFICER AFLOAT IV 05/08/17 09:45 05/11/17 09:44 Cefazolin Sodium/ Dextrose 50 ml @ 100 mls/hr OPERATIONS OFFICER AFLOAT IV 05/08/17 09:45 05/11/17 09:44 (Ecotrin Ec) 81 mg DAILY PO 05/09/17 09:00 UNV (Lipitor) 20 mg HS PO 05/08/17 21:00 UNV (Cleocin) 300 mg Q6H PO 05/08/17 14:15 UNV (Glucophage) 1,000 mg BIDPC PO 05/08/17 18:00 UNV Non-Formulary Medication 1 tab DAILY PO 05/09/17 09:00 UNV Non-Formulary Medication 40 mg DAILY PO 05/09/17 09:00 UNV Lactated Ringer's 1,000 ml @ 100 mls/hr Q10H IV 05/08/17 14:11 UNV (NS Flush) 2 ml UNSCH PRN IVF 05/08/17 14:15 UNV (NS Flush) 2 ml BID IVF 05/08/17 21:00 UNV (Post-op Orders (for Pharmacy)) STAT ONCE XX 05/08/17 14:15 05/08/17 14:16 UNV (Lovenox Inj) 40 mg Q24H SQ 05/08/17 14:15 UNV (Mandy-Colace) 1 tab BID PO 05/08/17 21:00 UNV (Milk Of Magnesia Liq) 10 ml Q12H PRN PO 05/08/17 14:15 UNV (Vergas 10-325 Mg) 1 tab Q6H PRN PO 05/08/17 14:15 UNV (Vergas 10-325 Mg) 2 tab Q6H PRN PO 05/08/17 14:15 UNV (Zofran Inj) 4 mg Q4H PRN IVP 05/08/17 14:15 UNV (Oscal-D 250-125) 250 mg TID PO 05/08/17 18:00 UNV (Theragran M Tab) 1 tab DAILY PO 05/09/17 09:00 UNV (Benadryl) 25 mg Q6H PRN PO 05/08/17 14:15 UNV (Narcan Inj) 0.4 mg UNSCH PRN IV 05/08/17 14:15 UNV (Dilaudid Pf Inj) 0.2 mg Q4H PRN IV PUSH 05/08/17 14:15 UNV Family History Brother, suicide 4 years ago Mother, CVA Father, Alzheimer's dementia Social History Patient has a history of tobacco use since the age of 17. She admits to smoking half pack or more daily. She denies any alcohol consumption or illicit drug use. Patient is and lives with her . Physical Exam Vital Signs Vital Signs Date Time Temp Pulse Resp B/P (MAP) Pulse Ox O2 Delivery O2 Flow Rate FiO2 05/08/17 10:05 99.0 91 18 114/69 (84) 97 Physical Exam GENERAL: This is a well-nourished, well-developed patient, in no apparent distress. Awake and alert. Lying in bed in PACU. SKIN: No rashes, ecchymoses or lesions. Cool and dry. HEAD: Atraumatic. Normocephalic. No temporal or scalp tenderness. EYES: Pupils equal round and reactive. Extraocular motions intact. No scleral icterus. No injection or drainage. ENT: Nose without bleeding or purulent drainage. Throat without erythema, tonsillar hypertrophy or exudate. Uvula midline. Airway patent. NECK: Trachea midline. No lymphadenopathy. Supple, nontender, no meningeal signs. CARDIOVASCULAR: Regular rate and rhythm without murmurs, gallops, or rubs. RESPIRATORY: Clear to auscultation. Breath sounds equal bilaterally. No wheezes , rales, or rhonchi. GASTROINTESTINAL: Abdomen soft, non-tender, nondistended. No hepato-splenomegaly , or palpable masses. No guarding. MUSCULOSKELETAL: Right lower extremity in postoperative dressing that is clean, dry and intact. No edema appreciated. NEUROLOGICAL: Awake and alert. Able to move all extremities. Normal speech. Laboratory Laboratory Tests Test 05/08/17 10:02 05/08/17 11:17 Blood Urea Nitrogen 8 Creatinine 0.75 Random Glucose 175 Calcium Level 9.6 Sodium Level 137 Potassium Level 4.2 Chloride Level 104 Carbon Dioxide Level 26.4 Anion Gap 7 Estimat Glomerular Filtration Rate 80 White Blood Count 13.2 Red Blood Count 4.31 Hemoglobin 12.2 Hematocrit 37.5 Mean Corpuscular Volume 86.9 Mean Corpuscular Hemoglobin 28.3 Mean Corpuscular Hemoglobin Concent 32.6 Red Cell Distribution Width 13.5 Platelet Count 323 Mean Platelet Volume 7.9 CBC Comment AUTO DIFF Differential Total Cells Counted 100 Neutrophils % (Manual) 66 Band Neutrophils % 3 Lymphocytes % 23 Monocytes % 4 Eosinophils % 4 Neutrophils # (Manual) 9.1 Differential Comment FINAL DIFF MANUAL Platelet Estimate NORMAL Platelet Morphology Comment NORMAL Red Cell Morphology Comment NORMAL Result Diagram: 05/08/17 1117 05/08/17 1002 Assessment and Plan Assessment and Plan 56-year-old female with a past medical history significant for diabetes, dyslipidemia, DDD/HNP lumbar spine and history of severe right foot infection with necrotizing fasciitis/gas gangrene requiring midfoot amputation who recently developed a new abscess approximately 2-3 months ago and despite treatment with IV antibiotics failed to improve and underwent an I&D of the skin , subcutaneous tissue and muscle of the right foot performed by Dr. Benson earlier today and now hospitalist services have been consulted for medical management. New abscess of the right foot in a patient with previous history of severe right foot infection with necrotizing fasciitis/gas gangrene requiring midfoot amputation and extensive IV abx treatment - Status post I&D of the skin, subcutaneous tissue, muscle and tendon of the right foot performed by Dr. Benson. Per Dr. Benson, if patient is unable to clear this infection she may require a below the knee amputation. - ID consulted by primary team. Patient previously on clindamycin 300 mg by mouth every 6 at home. Will follow up on their recommendations for antibiotic treatment. Begin Lactobacillus. - Wound care - Follow up on intraoperative culture results - Pain management with Narco and IV Dilaudid as needed for breakthrough pain. Bowel regimen. Monitor for constipation. - Begin participation with PT Leukocytosis - Secondary to above - White count 13.2 - History of MSSA bacteremia - IV antibiotics per ID recs - repeat labs in am Diabetes mellitus - last HgbA1c in the system 07/22 was 6.6 - Obtain new hemoglobin A1c - Continue patient on her home dose of metformin - Accu-Cheks - Insulin sliding scale - Diabetic diet Dyslipidemia - Continue patient on her home dose of atorvastatin 20 mg daily Ongoing tobaccoism - Discussed smoking cessation/counseling - Patient requesting nicotine patch. Will discuss with primary team if allowed. Suspect not, given the vasoconstrictive effects of nicotine. DDD/HNP lumbar spine with chronic LBP - Vergas prn GERD - Continue patient on home dose of PPI DVT prophylaxis - Lovenox 40mg sq Discussed with patient and Dr. Goode Thank you very kindly for this consultation and will gladly follow along with you. The exam, history, and the medical decision-making described in the above note were completed with the assistance of the mid-level provider. I reviewed and agree with the findings presented. I attest that I had a [id number] encounter with the patient on the same day, and personally performed and documented my assessment and findings in the medical record. Cherelle Maurice May 08, 2017 15:50 Oli Santana MD May 08, 2017 18:10
[2017-05-08] MEDS ORDERED: ACETAMINOPHEN/HYDROcodone 325 MG/10 MG TAB PO PRN (16:00)
[2017-05-08] MEDS ORDERED: ONDANSETRON HCL 4 MG/2 ML VIAL IVP PRN (16:00)
[2017-05-08] MEDS: CLINDAMYCIN 150 MG CAP PO SCH ×2 (16:00→20:54)
[2017-05-08] MEDS ORDERED: diphenhydrAMINE HCL 25 MG CAP PO PRN (17:00)
[2017-05-08] MEDS: LACTATED RINGER'S 1000 ML INJ 1,000 ML IV SCH (17:00)
[2017-05-08] MEDS ORDERED: MAGNESIUM HYDROXIDE SUSP 30 ML CUP PO PRN (17:00)
[2017-05-08] MEDS: INSULIN ASPART SUPPLEMENTAL SCALE SQ SCH ×2 (17:00→20:59)
[2017-05-08] MEDS: CALCIUM/VITAMIN D 250 MG/125 U TAB PO SCH (18:00)
[2017-05-08] MEDS ORDERED: metFORMIN HCL 500 MG TAB PO SCH (18:00)
[2017-05-08] MEDS: ACETAMINOPHEN/HYDROcodone 325 MG/10 MG TAB PO PRN (18:45)
[2017-05-08 20:00] VITALS: BP 137/74; PULSE 81; RESP 16; TEMP 97.1; O2SAT 95
[2017-05-08] MEDS: RESP: ALBUTEROL 2.5 MG/IPRATROPIUM 0.5 MG NEB (SCH) NEB (20:00)
[2017-05-08] MEDS: HYDROmorphone HCL PF 1 MG/ML VIAL IV PUSH PRN (20:52)
[2017-05-08] MEDS: ATORVASTATIN 20 MG TAB PO SCH (20:54)
[2017-05-08] MEDS: LACTOBACILLUS ACIDOPHILUS TAB PO SCH (20:55)
[2017-05-08] MEDS: guaiFENesin E.R. 600 MG TAB PO SCH (20:56)
[2017-05-08] MEDS: SODIUM CHLORIDE 0.9% FLUSH 5 ML FLUSH IVF SCH (20:56)
[2017-05-08] MEDS: DOCUSATE SODIUM 50 MG/SENNA 8.6 MG TAB PO SCH (20:56)
[2017-05-08 21:43] VITALS: O2SAT 96
[2017-05-09 00:39] VITALS: BP 137/74; PULSE 83; RESP 16; TEMP 97.2; O2SAT 93
[2017-05-09] MEDS: HYDROmorphone HCL PF 1 MG/ML VIAL IV PUSH PRN ×4 (01:41→17:08)
[2017-05-09] MEDS ORDERED: ENOXAPARIN SODIUM 40 MG/0.4 ML SYRINGE SQ SCH (02:00)
[2017-05-09] MEDS: LACTATED RINGER'S 1000 ML INJ 1,000 ML IV SCH ×2 (03:00→11:51)
[2017-05-09] MEDS: RESP: ALBUTEROL 2.5 MG/IPRATROPIUM 0.5 MG NEB (SCH) NEB ×2 (04:00)
[2017-05-09] MEDS: CLINDAMYCIN 150 MG CAP PO SCH ×4 (04:56→21:48)
[2017-05-09] MEDS: INSULIN ASPART SUPPLEMENTAL SCALE SQ SCH ×4 (05:15→21:30)
[2017-05-09 05:22] VITALS: O2SAT 94
[2017-05-09 05:58] LABS: BASOPHIL # 0.1 TH/MM3 (0-0.2); BASOPHIL % 0.7 % (0.0-2.0); EOSINOPHIL # 0.4 TH/MM3 (0-0.4); EOSINOPHIL % 3.8 % (0.0-4.0); HEMATOCRIT 37.1 % (35.0-46.0); HEMO FLAGS DIFF FINAL; LYMPH % 33.2 % (9.0-44.0); LYMPHOCYTE # 3.6 TH/MM3 (1.0-4.8); MEAN CELL VOLUME 87.4 FL (80.0-100.0); MEAN CORPUSCULAR HEMOGLOBIN 29.7 PG (27.0-34.0); MONO % 6.1 % (0.0-8.0); NEUT % 56.2 % (16.0-70.0); PLATELET COUNT 275 TH/MM3 (150-450); RED BLOOD COUNT 4.24 MIL/MM3 (4.00-5.30); RED CELL DISTRIBUTION WIDTH 13.6 % (11.6-17.2); WHITE BLOOD COUNT 10.7 TH/MM3 (4.0-11.0)
[2017-05-09 06:14] LABS: ANION GAP 10 MEQ/L (5-15); BICARBONATE 25.4 MEQ/L (21.0-32.0); BLOOD UREA NITROGEN 6 MG/DL (7-18); CHLORIDE 104 MEQ/L (98-107); GLOMERULAR FILTRATION RATE 104 ML/MIN (>89); SODIUM (NA) 139 MEQ/L (136-145)
[2017-05-09] MEDS: ACETAMINOPHEN/HYDROcodone 325 MG/10 MG TAB PO PRN ×3 (07:30→21:43)
[2017-05-09 08:00] VITALS: BP 167/82; PULSE 79; RESP 17; TEMP 96.8; O2SAT 95
--- NOTE | 2017-05-09 08:06 | PD.ORT.PN ---
Subjective Subjective Remarks Doing well. Pain controlled. No new complaints Objective Vitals Vital Signs Date Time Temp Pulse Resp B/P (MAP) Pulse Ox O2 Delivery O2 Flow Rate FiO2 05/09/17 05:22 94 05/09/17 00:39 97.2 83 16 137/74 (95) 93 05/08/17 21:43 96 05/08/17 20:00 97.1 81 16 137/74 (95) 95 05/08/17 15:45 98.0 76 17 132/84 (100) 95 Room Air 05/08/17 15:30 74 17 136/80 (98) 95 Room Air 05/08/17 15:15 76 17 144/67 (92) 95 Room Air 05/08/17 15:00 75 16 136/76 (96) 95 Room Air 05/08/17 14:45 79 16 138/73 (94) 95 Nasal Cannula 2 05/08/17 14:23 98.0 81 16 161/75 (103) 100 Nasal Cannula 2 05/08/17 10:05 99.0 91 18 114/69 (84) 97 I/O 05/08/17 05/08/17 05/08/17 05/09/17 05/09/17 05/09/17 07:00 15:00 23:00 07:00 15:00 23:00 Intake Total 800 ml 200 ml Balance 800 ml 200 ml Intake IV Total 200 ml Other 800 ml # Voids 1 3 Result Diagram: 05/09/17 0513 05/09/17 0513 Objective Remarks Dressing dry. No abnormal swelling. Status post previous transmit amputation. Dressing not taken down today Assessment & Plan Assessment and Plan History of multiple foot debridements for infection. History of necrotizing fasciitis. Status post STSG dorsum of foot Status post trans-met amputation Deep abscess plantar aspect right foot. Surgery: I&D of skin subcutaneous tissue muscle of right foot with packing with iodoform gauze. PLAN: Start Dressing change tomorrow with iodoform packing. ID consult pending. Appreciate medical consult and management of diabetes mellitus and medical conditions. Discharge to home when medical pathologist and ID feel patient is ready and coordination of antibiotics. I will be out of town until Sunday. One of my partners will follow in my absence. Pinnacle for pain. No anticoagulants Fito Benson MD May 09, 2017 08:06
[2017-05-09] MEDS ORDERED: HYDR-3583 PO (08:08)
[2017-05-09] MEDS: ASPIRIN EC 81 MG TABEC PO SCH (08:24)
[2017-05-09] MEDS: DOCUSATE SODIUM 50 MG/SENNA 8.6 MG TAB PO SCH ×2 (08:25→21:42)
[2017-05-09] MEDS: LACTOBACILLUS ACIDOPHILUS TAB PO SCH ×2 (08:25→21:42)
[2017-05-09] MEDS: guaiFENesin E.R. 600 MG TAB PO SCH ×2 (08:25→21:42)
[2017-05-09] MEDS: MULTIVITAMIN TAB PO SCH (08:25)
[2017-05-09] MEDS: SODIUM CHLORIDE 0.9% FLUSH 5 ML FLUSH IVF SCH ×2 (08:26→21:00)
[2017-05-09] MEDS: MULTIVITAMINS/MINERALS THERAPEUTIC TAB PO SCH (08:26)
[2017-05-09] MEDS: PANTOPRAZOLE SOD 40 MG DELAYED RELEASE TAB PO SCH (08:26)
[2017-05-09] MEDS: CALCIUM/VITAMIN D 250 MG/125 U TAB PO SCH ×3 (08:26→17:07)
--- NOTE | 2017-05-09 08:26 | HHI.PR ---
Subjective Remarks Follow up on patient with abscess right foot s/p I&D. Patient seen and examined today. 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 Denies any other complaints. Denies any fever or chills. Denies any chest pain, wheezing or shortness of breath. Denies any nausea, vomiting or abdominal pain. (+)BM. Urinating without difficulties. Objective Vitals Vital Signs Date Time Temp Pulse Resp B/P (MAP) Pulse Ox O2 Delivery O2 Flow Rate FiO2 05/09/17 05:22 94 05/09/17 00:39 97.2 83 16 137/74 (95) 93 05/08/17 21:43 96 05/08/17 20:00 97.1 81 16 137/74 (95) 95 05/08/17 15:45 98.0 76 17 132/84 (100) 95 Room Air 05/08/17 15:30 74 17 136/80 (98) 95 Room Air 05/08/17 15:15 76 17 144/67 (92) 95 Room Air 05/08/17 15:00 75 16 136/76 (96) 95 Room Air 05/08/17 14:45 79 16 138/73 (94) 95 Nasal Cannula 2 05/08/17 14:23 98.0 81 16 161/75 (103) 100 Nasal Cannula 2 05/08/17 10:05 99.0 91 18 114/69 (84) 97 I/O 05/08/17 05/08/17 05/08/17 05/09/17 05/09/17 05/09/17 06:59 14:59 22:59 06:59 14:59 22:59 Intake Total 800 ml 200 ml Balance 800 ml 200 ml Intake IV Total 200 ml Other 800 ml # Voids 1 3 Result Diagram: 05/09/1751205/09/1713 Objective Remarks GENERAL: This is a well-nourished, well-developed patient, in no apparent distress. Awake and alert. Sitting up on the side of the bed. Appears comfortable. SKIN: No rashes, ecchymoses or lesions. Cool and dry. HEAD: Atraumatic. Normocephalic. EYES: Extraocular motions intact. No scleral icterus. No injection or drainage. ENT: Nose without bleeding or purulent drainage. Airway patent. MMM. NECK: Trachea midline. No lymphadenopathy. Supple, nontender, no meningeal signs. CARDIOVASCULAR: Regular rate and rhythm without murmurs, gallops, or rubs. RESPIRATORY: Clear to auscultation. Breath sounds equal bilaterally. No wheezes , rales, or rhonchi. GASTROINTESTINAL: Abdomen soft, non-tender, nondistended. No hepato-splenomegaly , or palpable masses. No guarding. MUSCULOSKELETAL: Right lower extremity in postoperative dressing that is clean, dry and intact. No edema appreciated. NEUROLOGICAL: Awake and alert. Able to move all extremities. Normal speech. Procedures 05/08/17 s/p I&D of skin, subcutaneous tissue and muscle of the right foot performed by Dr. Bneson Medications and IVs Current Medications Medications (Trade) Dose Ordered Sig/Karen Route Start Time Stop Time Status Last Admin Lactated Ringer's 1,000 ml @ 30 mls/hr Q24H PRN IV 05/08/17 09:45 05/11/17 09:44 05/08/17 10:15 Sodium Chloride 500 ml @ 30 mls/hr [id number] PRN IV 05/08/17 09:45 05/11/17 09:44 (Lopressor) 25 mg WINE STEWARD/STEWARDESS PRN PO 05/08/17 09:45 05/11/17 09:44 (Betadine 5% Antisepsis Kit) 1 applic WINE STEWARD/STEWARDESS PRN EACH NARE 05/08/17 09:45 05/11/17 09:44 (Chlorhexidine 2% Cloth) 3 pack WINE STEWARD/STEWARDESS PRN TOPICAL 05/08/17 09:45 05/11/17 09:44 05/08/17 10:46 (NovoLIN R INJ) See Protocol Table ... WINE STEWARD/STEWARDESS PRN SQ 05/08/17 09:45 05/11/17 09:44 (Betadine 7.5% Scrub) 1 applic ONCE TOPICAL 05/08/17 09:45 05/11/17 09:44 05/08/17 10:47 Vancomycin HCl 1000 mg/Sodium Chloride 250 ml @ 250 mls/hr WINE STEWARD/STEWARDESS IV 05/08/17 09:45 05/11/17 09:44 Cefazolin Sodium/ Dextrose 50 ml @ 100 mls/hr WINE STEWARD/STEWARDESS IV 05/08/17 09:45 05/11/17 09:44 (Ecotrin Ec) 81 mg DAILY PO 05/09/17 09:00 (Lipitor) 20 mg HS PO 05/08/17 21:00 05/08/17 20:54 (Cleocin) 300 mg Q6H PO 05/08/17 16:00 05/09/17 04:56 (Protonix) 40 mg DAILY PO 05/09/17 09:00 Lactated Ringer's 1,000 ml @ 100 mls/hr Q10H IV 05/08/17 17:00 05/09/17 03:00 (NS Flush) 2 ml UNSCH PRN IVF 05/08/17 14:15 (NS Flush) 2 ml BID IVF 05/08/17 21:00 (Lovenox Inj) 40 mg Q24H SQ 05/09/17 02:00 05/09/17 00:43 (Mandy-Colace) 1 tab BID PO 05/08/17 21:00 (Milk Of Magnesia Liq) 10 ml Q12H PRN PO 05/08/17 17:00 (Odin 10-325 Mg) 1 tab Q6H PRN PO 05/08/17 16:00 05/09/17 00:43 (Odin 10-325 Mg) 2 tab Q6H PRN PO 05/08/17 16:00 05/09/17 07:30 (Zofran Inj) 4 mg Q4H PRN IVP 05/08/17 16:00 (Oscal-D 250-125) 250 mg TID PO 05/08/17 18:00 05/08/17 18:00 (Theragran M Tab) 1 tab DAILY PO 05/09/17 09:00 (Benadryl) 25 mg Q6H PRN PO 05/08/17 17:00 (Narcan Inj) 0.4 mg UNSCH PRN IV 05/08/17 14:15 (Dilaudid Pf Inj) 0.2 mg Q4H PRN IV PUSH 05/08/17 14:15 05/09/17 01:41 (D50w (Vial) Inj) 50 ml UNSCH PRN IV 05/08/17 15:45 (Glucagon Inj) 1 mg UNSCH PRN OTHER 05/08/17 15:45 (NovoLOG SUPPLEMENTAL SCALE) 1 ACHS SLIDING SCALE SQ 05/08/17 17:00 05/09/17 05:15 (Lactinex) 1 tab Q12HR PO 05/08/17 21:00 05/08/17 20:55 Miscellaneous Information ALL NURSING DEPARTME... UNSCH PRN .XX 05/08/17 14:23 05/09/17 14:22 (Theragran) 1 tab DAILY PO 05/09/17 09:00 (Duoneb Neb) 1 ampule Q4HR NEB NEB 05/08/17 20:00 (Mucinex Er) 600 mg BID PO 05/08/17 21:00 A/P Assessment and Plan 56-year-old female with a past medical history significant for diabetes, dyslipidemia, DDD/HNP lumbar spine and history of severe right foot infection with necrotizing fasciitis/gas gangrene requiring midfoot amputation who recently developed a new abscess approximately 2-3 months ago and despite treatment with IV antibiotics failed to improve and underwent an I&D of the skin , subcutaneous tissue and muscle of the right foot performed by Dr. Benson earlier today and now hospitalist services have been consulted for medical management. New abscess of the right foot in a patient with previous history of severe right foot infection with necrotizing fasciitis/gas gangrene requiring midfoot amputation and extensive IV abx treatment - Status post I&D of the skin, subcutaneous tissue, muscle and tendon of the right foot performed by Dr. Benson. Per Dr. Benson, if patient is unable to clear this infection she may require a below the knee amputation. - patient currently on IV Vancomycin - ID consulted by primary team - consult pending. Patient previously on clindamycin 300 mg by mouth every 6 at home. Will follow up on their recommendations for antibiotic treatment. Continue on Lactobacillus. - Wound care. Per Dr. Benson, begin dressing change tomorrow with iodoform packing. - Follow up on intraoperative culture results - pending - Pain management with Narco and IV Dilaudid as needed for breakthrough pain. Bowel regimen. Monitor for constipation. - Begin participation with PT Leukocytosis - Secondary to above - resolved, 13.2 --> 10.7 - History of MSSA bacteremia - Currently on IV Vancomycin. Will f/u on IV antibiotics per ID recs Diabetes mellitus - last HgbA1c in the system 07/22 was 6.6 - Obtain new hemoglobin A1c - pending - Continue patient on home med metformin at lower dose - Accu-Cheks - Insulin sliding scale - Diabetic diet Dyslipidemia - Continue patient on her home dose of atorvastatin 20 mg daily Ongoing tobaccoism - Discussed smoking cessation/counseling DDD/HNP lumbar spine with chronic LBP - Odin prn GERD - Continue patient on home dose of PPI DVT prophylaxis - Bilateral SCDs and DIAMOND hose LLE - No anticoagulants per surgical team Discussed with patient and Dr. Goode Discharge Planning Pending ID clearance/recommendations for outpatient antibiotics and PT participation Cherelle Maurice May 09, 2017 08:26
[2017-05-09] MEDS ORDERED: RESP: ALBUTEROL 2.5 MG/IPRATROPIUM 0.5 MG NEB (PRN) NEB (08:30)
[2017-05-09] MEDS: metFORMIN HCL 500 MG TAB PO SCH ×2 (08:43→17:07)
[2017-05-09] MEDS ORDERED: NON-FORMULARY DRUG (Multiple Vitamin (Multi-Vitamin Daily) 1 TAB) PO SCH (09:00)
[2017-05-09] MEDS ORDERED: metFORMIN HCL 500 MG TAB PO SCH (09:00)
[2017-05-09 10:17] LABS: HEMOGLOBIN A1a 2.4 %; HEMOGLOBIN A1b 1.2 %; HEMOGLOBIN Ao 80.7 %; HEMOGLOBIN F 1.3 %; HEMOGLOBIN P3 3.9 %
[2017-05-09 12:00] VITALS: BP 132/90; PULSE 82; RESP 17; TEMP 97.4; O2SAT 96
[2017-05-09 16:00] VITALS: BP 139/74; PULSE 81; RESP 17; TEMP 97.6; O2SAT 96
--- NOTE | 2017-05-09 17:04 | PD.ID.CON ---
History of Present Illness Service ID Consult Requested By Dr Noguera Reason for Consult R foot DFI Primary Care Physician Jania Mauro MD Diagnoses: History of Present Illness pt is known to me from her previous admission 2 mos ago Patient is a 56-year-old diabetic/tobacco positivei female with a diabetic right foot sp multiple procedures including R hallux amputation followed by transmetatarsal amputation 6 months ago . She was admitted at the end of February with sepsis 2/2 DFI of R foot. She underwent Irrigation and debridement right foot debridement of deep ulcer with abscess and packing with iodoform gauze Mar 08, [address] Fito Benson and Operation findings included a deep abscess into the soft tissues, wound clx are positive for MSSA, She refused IV abx and left AMA and presented later to Dr Benson office with swelling , redness and drainage for incision She was given oral clindamycin but it only worked temporarily On May 08, 2017 she had Irrigation and debridement of skin subcutaneous tissue and muscle of the right foot by Dr Fito Benson OPERATIVE FINDINGS include evidence of a chronic deep abscess with very little purulent material and necrotic debris as if this is a partially treated volar wound. Clx is growing MSSA (preliminaary) Pt is afebrile, WBC borderline elevated Pt has no coother complainnts Sill smokes up to 1/2 ppd . Review of Systems Except as stated in HPI: all other systems reviewed are Neg Past Family Social History Allergies: Coded Allergies: codeine (Unverified Allergy, Severe, Hives, 05/08/17) morphine (Unverified Allergy, Severe, rash, 05/08/17) penicillin G (Unverified Allergy, Severe, Hives, 05/08/17) Pt reports she has tolerated Keflex on multiple occassions in past. Uncoded Allergies: STEROIDS (Allergy, Severe, Hives, 07/25/16) Past Medical History DM Hypertriglyceridemia Past Surgical History Left knee Right knee x 2 Hysterectomy Left great toe amputated 2012 Right great toe amputated 2009 Active Ordered Medications Medications where reviewed in EMR Antibiotics Include: CLINDAMYCIN PO Family History reviewed, non contributory to current condition Social History Tobacco: smokes since age 17; quit smoking in July and then restarted smoking; currently smokes 5-10 sig /day Alcohol: denies Illicit Drugs: denies Physical Exam Vital Signs Vital Signs Date Time Temp Pulse Resp B/P (MAP) Pulse Ox O2 Delivery O2 Flow Rate FiO2 05/09/17 16:00 97.6 81 17 139/74 (95) 96 05/09/17 12:00 97.4 82 17 132/90 (104) 96 05/09/17 08:00 96.8 79 17 167/82 (110) 95 05/09/17 05:22 94 05/09/17 00:39 97.2 83 16 137/74 (95) 93 05/08/17 21:43 96 05/08/17 20:00 97.1 81 16 137/74 (95) 95 Physical Exam CONSTITUTIONAL/GENERAL: This is an overweight femael patient, in no apparent distress. TUBES/LINES/DRAINS: SKIN: No jaundice, rashes, or lesions. Ecchymoses on upper extremities. No wounds seen anteriorly. Skin temperature appropriate. Not diaphoretic. HEAD: Atraumatic. Normocephalic. EYES: Pupils equal and round and reactive. No injection or drainage. Fundi not examined. ENT: Hearing grossly normal. Oral mucosae moist NECK: Trachea midline. Supple, nontender. CARDIOVASCULAR: Regular rate and rhythm without murmurs, gallops, or rubs. No JVD. Peripheral pulses symmetric. RESPIRATORY/CHEST: Symmetric, unlabored respirations. Clear to auscultation. Breath sounds equal bilaterally. No wheezes, rales, or rhonchi. GASTROINTESTINAL: Abdomen soft, non-tender, nondistended. No hepato-splenomegaly , or palpable masses. No guarding. Bowel sounds present. GENITOURINARY: Without palpable bladder distension. MUSCULOSKELETAL: Extremities without clubbing, cyanosis, or edema. STATUS LOCALIS: R foot with surgical dressing in place, intact no ascending lympahcitis or cellulitis LYMPHATICS: No palpable cervical or supraclavicular adenopathy. NEUROLOGICAL: Awake and alert. Motor and sensory grossly within normal limits. Follows commands. Clear speech . Moves all extremities. PSYCHIATRIC: tearful Laboratory Laboratory Tests Test 05/09/17 05:13 White Blood Count 10.7 Red Blood Count 4.24 Hemoglobin 12.6 Hematocrit 37.1 Mean Corpuscular Volume 87.4 Mean Corpuscular Hemoglobin 29.7 Mean Corpuscular Hemoglobin Concent 34.0 Red Cell Distribution Width 13.6 Platelet Count 275 Mean Platelet Volume 8.5 Neutrophils (%) (Auto) 56.2 Lymphocytes (%) (Auto) 33.2 Monocytes (%) (Auto) 6.1 Eosinophils (%) (Auto) 3.8 Basophils (%) (Auto) 0.7 Neutrophils # (Auto) 6.0 Lymphocytes # (Auto) 3.6 Monocytes # (Auto) 0.7 Eosinophils # (Auto) 0.4 Basophils # (Auto) 0.1 CBC Comment DIFF FINAL Differential Comment Blood Urea Nitrogen 6 Creatinine 0.60 Random Glucose 127 Calcium Level 9.0 Sodium Level 139 Potassium Level 4.0 Chloride Level 104 Carbon Dioxide Level 25.4 Anion Gap 10 Estimat Glomerular Filtration Rate 104 Hemoglobin A1c 8.4 Date/Time Source Procedure Growth Status 05/08/17 14:00 Fluid Other Fungal Smear - Final NO FUNGAL ELEMENTS SEEN. Resulted 05/08/17 14:00 Fluid Other Fungal Culture Pending Resulted 05/08/17 14:00 Wound Foot Fungal Smear - Final NO FUNGAL ELEMENTS SEEN. Resulted 05/08/17 14:00 Wound Foot Fungal Culture Pending Resulted Result Diagram: 05/09/1713 05/09/17512 Assessment and Plan Assessment and Plan Abscess right foot. Status post transmetatarsal amputation. 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 Probablle kell. However if recurrent growth will need treatment Diabetic right foot, confined to skin and soft tissue, clinically deep abscess Status post transmetatarsal amputation on that foot Leukocytosis Tobaccoism Diabetes Allergic to PCN, pt states sh has no problems with Keflex Poor compliance Rec's: vancomycin; if confirmed MSSA will switch to cefazoline/ CFTX fu clx rec' sp er clx but likely IV abx Telma Griffiths MD May 09, 2017 17:04
--- NOTE | 2017-05-09 17:04 | HHI.PR ---
Addendum to Inpatient Note Additional Information pt seen arounfd [id number] Full note to follow Telma Griffiths MD May 09, 2017 17:03
[2017-05-09 20:00] VITALS: BP 131/67; PULSE 92; RESP 18; TEMP 97.9; O2SAT 93
[2017-05-09] MEDS: ATORVASTATIN 20 MG TAB PO SCH (21:42)
[2017-05-09] MEDS ORDERED: Vancomycin Consult Pharmacy 1 EA OTHER SCH (23:15)
[2017-05-09] MEDS ORDERED: VANCOMYCIN 1,500 MG/NS 500 ML IV ONE ×2 (23:45)
[2017-05-10] VITALS (8 sets, daily range): BP systolic 125–170; BP diastolic 69–79; PULSE 76–96; RESP 16–20; TEMP 96.5–97.4; O2SAT 92–97
[2017-05-10] MEDS: HYDROmorphone HCL PF 1 MG/ML VIAL IV PUSH PRN ×4 (00:10→18:39)
[2017-05-10] MEDS: ACETAMINOPHEN/HYDROcodone 325 MG/10 MG TAB PO PRN ×4 (04:05→23:30)
[2017-05-10] MEDS: INSULIN ASPART SUPPLEMENTAL SCALE SQ SCH ×4 (05:53→21:19)
--- NOTE | 2017-05-10 08:28 | HHI.PR ---
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 Benson on this admission, Patient's most recent admission was 03/08/17 for sepsis and cellulitis of the right foot. MRI at that time did not show any signs of osteomyelitis but did show extensive soft tissue edema. Patient underwent I&D of the right foot by Dr. Benson. Wound cultures were positive for MSSA. At that time, she was seen in consultation by infectious disease who recommended 2-4 weeks of IV antibiotics. However, patient left AGAINST MEDICAL ADVICE on 03/11/17. On this admission With Diagnosis of Abscess right foot, status post Transmetatarsal amputation and DM II, status post Irrigation and debridement of skin subcutaneous tissue and muscle of the right foot. May 08. ID specialist following with diagnosis of Recurrent abscess right foot MSSA, long treatment of Clindamycin on/off previous Culture positive for Nigrospora one in two Leukocytosis, recommended to switch from Vancomycin to Cefazolin. 05/10: Stable in her bedroom no new complaint, no nausea, vomit or diarrhea. Objective Vital Signs Date Time Temp Pulse Resp B/P (MAP) Pulse Ox O2 Delivery O2 Flow Rate FiO2 05/10/17 08:00 96.5 83 16 125/69 (87) 95 05/10/17 06:05 92 05/10/17 00:00 97.0 93 18 125/72 (89) 92 05/09/17 20:00 97.9 92 18 131/67 (88) 93 05/09/17 16:00 97.6 81 17 139/74 (95) 96 05/09/17 12:00 97.4 82 17 132/90 (104) 96 I/O 05/09/17 05/09/17 05/09/17 05/10/17 05/10/17 05/10/17 06:59 14:59 22:59 06:59 14:59 22:59 Intake Total 1420 ml 500 ml Output Total 1900 ml Balance -480 ml 500 ml Intake Oral 1200 ml IV Total 220 ml 500 ml Output Urine Total 1900 ml # Voids 3 4 # Bowel Movements 0 Result Diagram: 05/09/17 0513 05/09/17512 Imaging No new Imaging studies. Procedures 05/08/17 s/p I&D of skin, subcutaneous tissue and muscle of the right foot performed by Dr. Benson Other Results Laboratory Tests Test 05/08/17 11:17 05/09/17 05:13 Differential Total Cells Counted 100 Neutrophils % (Manual) 66 % Band Neutrophils % 3 % Lymphocytes % 23 % Monocytes % 4 % Eosinophils % 4 % Neutrophils # (Manual) 9.1 TH/MM3 Platelet Estimate NORMAL Platelet Morphology Comment NORMAL Red Cell Morphology Comment NORMAL White Blood Count 10.7 TH/MM3 Red Blood Count 4.24 MIL/MM3 Hemoglobin 12.6 GM/DL Hematocrit 37.1 % Mean Corpuscular Volume 87.4 FL Mean Corpuscular Hemoglobin 29.7 PG Mean Corpuscular Hemoglobin Concent 34.0 % Red Cell Distribution Width 13.6 % Platelet Count 275 TH/MM3 Mean Platelet Volume 8.5 FL Neutrophils (%) (Auto) 56.2 % Lymphocytes (%) (Auto) 33.2 % Monocytes (%) (Auto) 6.1 % Eosinophils (%) (Auto) 3.8 % Basophils (%) (Auto) 0.7 % Neutrophils # (Auto) 6.0 TH/MM3 Lymphocytes # (Auto) 3.6 TH/MM3 Monocytes # (Auto) 0.7 TH/MM3 Eosinophils # (Auto) 0.4 TH/MM3 Basophils # (Auto) 0.1 TH/MM3 CBC Comment DIFF FINAL Differential Comment Blood Urea Nitrogen 6 MG/DL Creatinine 0.60 MG/DL Random Glucose 127 MG/DL Calcium Level 9.0 MG/DL Sodium Level 139 MEQ/L Potassium Level 4.0 MEQ/L Chloride Level 104 MEQ/L Carbon Dioxide Level 25.4 MEQ/L Anion Gap 10 MEQ/L Estimat Glomerular Filtration Rate 104 ML/MIN Hemoglobin A1c 8.4 % Objective Remarks GENERAL: This is a well-nourished, well-developed patient, in no apparent distress. Awake and alert. Sitting up on the side of the bed. Appears comfortable. SKIN: No rashes, ecchymoses or lesions. Cool and dry. HEAD: Atraumatic. Normocephalic. EYES: Extraocular motions intact. No scleral icterus. No injection or drainage. ENT: Nose without bleeding or purulent drainage. Airway patent. MMM. NECK: Trachea midline. No lymphadenopathy. Supple, nontender, no meningeal signs. CARDIOVASCULAR: Regular rate and rhythm without murmurs, gallops, or rubs. RESPIRATORY: Clear to auscultation. Breath sounds equal bilaterally. No wheezes , rales, or rhonchi. GASTROINTESTINAL: Abdomen soft, non-tender, nondistended. No hepato-splenomegaly , or palpable masses. No guarding. MUSCULOSKELETAL: Right lower extremity in postoperative dressing that is clean, dry and intact. No edema appreciated. NEUROLOGICAL: Awake and alert. Able to move all extremities. Normal speech. Medications and IVs Current Medications Medications (Trade) Dose Ordered Sig/Karen Route Start Time Stop Time Status Last Admin Lactated Ringer's 1,000 ml @ 30 mls/hr Q24H PRN IV 05/08/17 09:45 05/11/17 09:44 05/08/17 10:15 Sodium Chloride 500 ml @ 30 mls/hr [id number] PRN IV 05/08/17 09:45 05/11/17 09:44 (Lopressor) 25 mg PATIENT SERVICES TECHNICIAN PRN PO 05/08/17 09:45 05/11/17 09:44 (Betadine 5% Antisepsis Kit) 1 applic PATIENT SERVICES TECHNICIAN PRN EACH NARE 05/08/17 09:45 05/11/17 09:44 (Chlorhexidine 2% Cloth) 3 pack PATIENT SERVICES TECHNICIAN PRN TOPICAL 05/08/17 09:45 05/11/17 09:44 05/08/17 10:46 (NovoLIN R INJ) See Protocol Table ... PATIENT SERVICES TECHNICIAN PRN SQ 05/08/17 09:45 05/11/17 09:44 (Betadine 7.5% Scrub) 1 applic ONCE TOPICAL 05/08/17 09:45 05/11/17 09:44 05/08/17 10:47 Vancomycin HCl 1000 mg/Sodium Chloride 250 ml @ 250 mls/hr PATIENT SERVICES TECHNICIAN IV 05/08/17 09:45 05/11/17 09:44 Cefazolin Sodium/ Dextrose 50 ml @ 100 mls/hr PATIENT SERVICES TECHNICIAN IV 05/08/17 09:45 05/11/17 09:44 (Ecotrin Ec) 81 mg DAILY PO 05/09/17 09:00 05/09/17 08:24 (Lipitor) 20 mg HS PO 05/08/17 21:00 05/09/17 21:42 (Protonix) 40 mg DAILY PO 05/09/17 09:00 05/09/17 08:26 (NS Flush) 2 ml UNSCH PRN IVF 05/08/17 14:15 (NS Flush) 2 ml BID IVF 05/08/17 21:00 05/09/17 21:00 (Mandy-Colace) 1 tab BID PO 05/08/17 21:00 05/09/17 21:42 (Milk Of Magnesia Liq) 10 ml Q12H PRN PO 05/08/17 17:00 ([place] 10-325 Mg) 1 tab Q6H PRN PO 05/08/17 16:00 05/09/17 00:43 ([place] 10-325 Mg) 2 tab Q6H PRN PO 05/08/17 16:00 05/10/17 04:05 (Zofran Inj) 4 mg Q4H PRN IVP 05/08/17 16:00 (Oscal-D 250-125) 250 mg TID PO 05/08/17 18:00 05/09/17 17:07 (Theragran M Tab) 1 tab DAILY PO 05/09/17 09:00 05/09/17 08:26 (Benadryl) 25 mg Q6H PRN PO 05/08/17 17:00 (Narcan Inj) 0.4 mg UNSCH PRN IV 05/08/17 14:15 (Dilaudid Pf Inj) 0.2 mg Q4H PRN IV PUSH 05/08/17 14:15 05/10/17 05:48 (D50w (Vial) Inj) 50 ml UNSCH PRN IV 05/08/17 15:45 (Glucagon Inj) 1 mg UNSCH PRN OTHER 05/08/17 15:45 (NovoLOG SUPPLEMENTAL SCALE) 1 ACHS SLIDING SCALE SQ 05/08/17 17:00 05/10/17 05:53 (Lactinex) 1 tab Q12HR PO 05/08/17 21:00 05/09/17 21:42 (Theragran) 1 tab DAILY PO 05/09/17 09:00 05/09/17 08:25 (Mucinex Er) 600 mg BID PO 05/08/17 21:00 05/09/17 21:42 (Duoneb Neb) 1 ampule Q4HR NEB PRN NEB 05/09/17 08:30 (Glucophage) 500 mg BIDPC PO 05/09/17 09:00 05/09/17 17:07 Pharmacy Profile Note 0 ml @ 0 mls/hr UNSCH OTHER 05/09/17 23:15 A/P Assessment and Plan 1. Recurrent abscess right foot MSSA, Long treatment with Clindamycin, on/off previous Culture positive for Nigrospora not sure by ID clinical significance, recommended to discontinue Vancomycin and continue Cefazolin\ Status post I and D of the skin, subcutaneous tissue, muscle and tendon of the right foot performed by Dr. Benson. Per Dr. Benson, if patient is unable to clear this infection she may require a below the knee amputation. continue pain medicine. 2. Leukocytosis Improved. continue antibiotics. 3. DM II last hemoglobin A1C 8.4. continue sliding scale and diabetic diet. 4. Hyperlipidemia to continue Statin 5. Tobacco dependence the patient refuse Bronchodilator, or Mucolytics, but accept Nicotine patch. 6. Degenerative Disc Disease/Herniated Nucleus Pulposus chronic on pain medicine 7. GERD on PPI. DVT prophylaxis - Bilateral SCDs and DIAMOND hose LLE - No anticoagulants per surgical team Discharge Planning Once cleared by Specialists. Oli Santana MD May 10, 2017 08:28
--- NOTE | 2017-05-10 08:51 | PD.ORT.PN ---
Subjective Subjective Remarks Doing 'alright' today. Foot throbbing but PO pain meds help. No new complaints. Discussed medical treatment. Questions about when she will be discharged. No other concerns. No new CP, SOB abd pain or fever. Objective Vitals Vital Signs Date Time Temp Pulse Resp B/P (MAP) Pulse Ox O2 Delivery O2 Flow Rate FiO2 05/10/17 08:00 96.5 83 16 125/69 (87) 95 05/10/17 06:05 92 05/10/17 00:00 97.0 93 18 125/72 (89) 92 05/09/17 20:00 97.9 92 18 131/67 (88) 93 05/09/17 16:00 97.6 81 17 139/74 (95) 96 05/09/17 12:00 97.4 82 17 132/90 (104) 96 I/O 05/09/17 05/09/17 05/09/17 05/10/17 05/10/17 05/10/17 07:00 15:00 23:00 07:00 15:00 23:00 Intake Total 1420 ml 500 ml Output Total 1900 ml Balance -480 ml 500 ml Intake Oral 1200 ml IV Total 220 ml 500 ml Output Urine Total 1900 ml # Voids 3 4 # Bowel Movements 0 Result Diagram: 05/09/17 0513 05/09/17 0513 Objective Remarks Sitting up in bed NAD RLE Dressing dry, no obv drainage, mild postop swelling, Status post previous transmet amputation Ankle flexion intact, good sensation, cap refill less than 2 secs Assessment & Plan Ortho Post Op Day #: 2 Problem List: Assessment and Plan History of multiple foot debridements for infection. History of necrotizing fasciitis. Status post STSG dorsum of foot Status post trans-met amputation Deep abscess plantar aspect right foot. Surgery: pod#2 s/p I&D of skin subcutaneous tissue muscle of right foot with packing with iodoform gauze. PLAN: Pain controlled on po meds. Dressing changes daily beginning today with iodoform packing. ID consult for antibiotics. Hold anticoagulants. Appreciate medical consult and management of diabetes mellitus and medical conditions. Discharge to home when medical staff services manager and ID feel patient is ready and coordination of antibiotics. Dr. Payton will be out of town until Sunday. [facility] May 10, 2017 08:51
[2017-05-10] MEDS: CALCIUM/VITAMIN D 250 MG/125 U TAB PO SCH ×3 (08:53→16:35)
[2017-05-10] MEDS: guaiFENesin E.R. 600 MG TAB PO SCH ×2 (08:53→21:22)
[2017-05-10] MEDS: LACTOBACILLUS ACIDOPHILUS TAB PO SCH ×2 (08:54→21:22)
[2017-05-10] MEDS: ASPIRIN EC 81 MG TABEC PO SCH (08:54)
[2017-05-10] MEDS: metFORMIN HCL 500 MG TAB PO SCH ×2 (08:54→16:36)
[2017-05-10] MEDS: DOCUSATE SODIUM 50 MG/SENNA 8.6 MG TAB PO SCH ×2 (08:54→21:22)
[2017-05-10] MEDS: MULTIVITAMINS/MINERALS THERAPEUTIC TAB PO SCH (08:55)
[2017-05-10] MEDS: PANTOPRAZOLE SOD 40 MG DELAYED RELEASE TAB PO SCH (08:55)
[2017-05-10] MEDS: MULTIVITAMIN TAB PO SCH (08:55)
[2017-05-10] MEDS: SODIUM CHLORIDE 0.9% FLUSH 5 ML FLUSH IVF SCH ×2 (09:41→21:00)
[2017-05-10] MEDS: NICOTINE 14 MG/24 HR PATCH T-DERMAL SCH (11:21)
[2017-05-10] MEDS ORDERED: VANCOMYCIN 1,000 MG/NS 250 ML IV SCH ×2 (12:00)
[2017-05-10] MEDS: ceFAZolin 2 GM PREMIX 50 ML IV SCH ×2 (14:15→21:21)
--- NOTE | 2017-05-10 16:12 | HHI.FF ---
Face to Face Verification Diagnosis: (1) Gangrene (2) Osteomyelitis (3) Cellulitis and abscess of foot Home Health Nursing Order: Medical education Signs/symptoms of disease process Diabetic education Medication education-adverse effect Wound care and dressing changes Nursing assessment with vital signs IV medication administration I have seen patient Kylah Bryant on 05/10/17. My clinical findings support the need for the requested home health care services because: Ltd mobility - disease progression Deconditioned w/ increased weakness I certify that my clinical findings support that this patient is homebound because: Unsteady gait/balance Unsafe to leave home unassisted Oli Santana MD May 10, 2017 16:12
[2017-05-10] MEDS: ATORVASTATIN 20 MG TAB PO SCH (21:22)
[2017-05-11] MEDS: HYDROmorphone HCL PF 1 MG/ML VIAL IV PUSH PRN ×5 (00:48→22:29)
[2017-05-11] MEDS: ceFAZolin 2 GM PREMIX 50 ML IV SCH ×3 (05:31→20:06)
[2017-05-11] MEDS: ACETAMINOPHEN/HYDROcodone 325 MG/10 MG TAB PO PRN ×3 (05:31→18:08)
[2017-05-11] MEDS: INSULIN ASPART SUPPLEMENTAL SCALE SQ SCH ×4 (06:25→20:03)
[2017-05-11 08:00] VITALS: BP 148/82; PULSE 78; RESP 16; TEMP 97.5; O2SAT 95
--- NOTE | 2017-05-11 08:21 | PD.ORT.PN ---
Subjective Subjective Remarks She continues to have right foot throbbing but states she is doing well overall. She states the foot is 'as expected'. No new leg symptoms. She is waiting to hear from ID whether she can go on oral meds versus IV meds outpatient. No other complaints. No new CP, SOB abd pain or fever. Objective Vitals Vital Signs Date Time Temp Pulse Resp B/P (MAP) Pulse Ox O2 Delivery O2 Flow Rate FiO2 05/10/17 23:36 96.5 84 19 135/76 (95) 95 05/10/17 20:18 96 21 05/10/17 20:00 97.4 96 20 170/79 (109) 97 05/10/17 16:00 97.1 86 16 137/75 (95) 93 05/10/17 12:00 96.9 76 18 137/70 (92) 96 I/O 05/10/17 05/10/17 05/10/17 05/11/17 05/11/17 05/11/17 07:00 15:00 23:00 07:00 15:00 23:00 Intake Total 500 ml 765 ml 2260 ml 290 ml Output Total 2500 ml 1500 ml Balance 500 ml 765 ml -240 ml -1210 ml Intake Oral 2160 ml 240 ml IV Total 500 ml 765 ml 100 ml 50 ml Output Urine Total 2500 ml 1500 ml # Voids 4 # Bowel Movements 2 0 Result Diagram: 05/09/1751205/09/17512 Objective Remarks Sitting up in bed NAD RLE Dressing dry/recently changed, no new drainage, mild postop swelling, Status post previous transmet amputation Ankle flexion intact, good sensation, cap refill less than 2 secs Assessment & Plan Ortho Post Op Day #: 3 Problem List: Assessment and Plan History of multiple foot debridements for infection. History of necrotizing fasciitis. Status post STSG dorsum of foot Status post trans-met amputation Deep abscess plantar aspect right foot. Surgery: pod#3 s/p I&D of skin subcutaneous tissue muscle of right foot with packing with iodoform gauze. PLAN: Pain controlled on po meds. Dressing changes daily with iodoform gauze packing and cling. Pt has done this previously with her previous I&D. ID eval/tx for antibiotics. Hold anticoagulants. Medical management of diabetes mellitus and medical conditions. Tobacco cessation encouraged. Ok to discharge to home when medical/ID feel patient is stable and antibiotics have been coordinated. She will need to continue with outpatient dressing changes. F/U in [address] Payton will be out of town until Sunday of next week. [facility] May 11, 2017 08:21
--- NOTE | 2017-05-11 08:23 | HHI.DCPOC ---
Discharge Care Plan Diagnosis: (1) MSSA (methicillin susceptible Staphylococcus aureus) infection (2) Diabetes mellitus (3) Cellulitis and abscess of foot Your Health Problems Are: Incision/Drains Skin Breakdown Swelling Goals to Promote Your Health * To prevent worsening of your condition and complications * To maintain your health at the optimal level Directions to Meet Your Goals Take your medications as prescribed Follow your dietary instruction Follow activity as directed Keep your appointments as scheduled Take your immunizations and boosters as scheduled If your symptoms worsen call your PCP, if no PCP go to Urgent Care Center or Emergency Room Smoking is Dangerous to Your Health. Avoid second hand smoke Call the 24-hour hour crisis hotline for domestic abuse at [facility] May 11, 2017 08:23
--- NOTE | 2017-05-11 08:25 | HHI.DS ---
Discharge Summary Admission Date May 08, 2017 at 14:15 Discharge Date: May 12, 2017 Admitting Diagnosis see below Diagnosis: (1) PAD (peripheral artery disease) Diagnosis: Secondary ICD Codes: I73.9 - Peripheral vascular disease, unspecified Status: Acute (2) Amputation at midfoot Diagnosis: Secondary ICD Codes: S98.319A - Complete traumatic amputation of unspecified midfoot, initial encounter Status: Acute (3) Diabetes 1.5, managed as type 1 Diagnosis: Secondary ICD Codes: E13.9 - Other specified diabetes mellitus without complications Status: Acute (4) Cellulitis and abscess of foot Diagnosis: Principal ICD Codes: L03.119 - Cellulitis of unspecified part of limb; L02.619 - Cutaneous abscess of unspecified foot Status: Acute (5) MSSA (methicillin susceptible Staphylococcus aureus) infection Diagnosis: Principal ICD Codes: A49.01 - Methicillin susceptible Staphylococcus aureus infection, unspecified site Status: Acute Procedures Irrigation and debridement right foot abscess Brief History This is a 56 year old female patient with a history of right midfoot amputation and multiple debridements in the last 12 months.. CBC/BMP: 05/09/17 0513 05/09/17 0513 Significant Findings Laboratory Tests Test 05/08/17 10:02 05/08/17 11:17 05/09/17 05:13 Random Glucose 175 MG/DL (74-106) 127 MG/DL (74-106) Estimat Glomerular Filtration Rate 80 ML/MIN (>89) White Blood Count 13.2 TH/MM3 (4.0-11.0) Neutrophils # (Manual) 9.1 TH/MM3 (1.8-7.7) Blood Urea Nitrogen 6 MG/DL (7-18) Hemoglobin A1c 8.4 % (4.3-6.0) PE at Discharge Sitting up in bed NAD RLE Dressing dry/recently changed, no new drainage, mild postop swelling, Status post previous transmet amputation Ankle flexion intact, good sensation, cap refill less than 2 secs Pt Condition on Discharge: Stable Discharge Disposition: Disch w/ Home Health Serv Discharge Instructions Diet Instructions: Diabetic Diet Activities You Can Perform: Non Weight Bearing Additional Activity Instruc.: NonWBing right foot to protect wound New Medications: Hydrocodone-Acetaminophen (Hydrocodone-Acetaminophen) 10-325 mg Tab 1 TAB PO Q6H PRN for pain, #50 TAB Continued Medications: Aspirin (Aspir-81) 81 Mg Tabdr 81 MG PO DAILY Atorvastatin (Atorvastatin) 20 Mg Tab 20 MG PO HS for Cholesterol Management, #30 TAB 2 Refills Clindamycin (Clindamycin) 300 Mg Cap 300 MG PO Q6H for Infection for 21 Days, CAP 0 Refills Hydrocodone-Acetaminophen ([place]) 5-325 mg Tab 1 TAB PO Q6H PRN for PAIN, TAB 0 Refills Metformin (Metformin) 500 Mg Tab 2 TAB PO BIDPC for Blood Sugar Management, #120 TAB 3 Refills With meals Multiple Vitamin (Multi-Vitamin Daily) 1 Tab Tab 1 TAB PO DAILY for Nutritional Supplement, TAB 0 Refills Omeprazole (Omeprazole) 40 Mg Cap 40 MG PO DAILY, #30 CAP 3 Refills [facility] May 11, 2017 08:25
[2017-05-11] MEDS: CALCIUM/VITAMIN D 250 MG/125 U TAB PO SCH ×3 (08:31→16:07)
[2017-05-11] MEDS: MULTIVITAMINS/MINERALS THERAPEUTIC TAB PO SCH (08:31)
[2017-05-11] MEDS: NICOTINE 14 MG/24 HR PATCH T-DERMAL SCH (08:31)
[2017-05-11] MEDS: ASPIRIN EC 81 MG TABEC PO SCH (08:31)
[2017-05-11] MEDS: metFORMIN HCL 500 MG TAB PO SCH (08:31)
[2017-05-11] MEDS: DOCUSATE SODIUM 50 MG/SENNA 8.6 MG TAB PO SCH ×2 (08:31→20:01)
[2017-05-11] MEDS: PANTOPRAZOLE SOD 40 MG DELAYED RELEASE TAB PO SCH (08:31)
[2017-05-11] MEDS: LACTOBACILLUS ACIDOPHILUS TAB PO SCH ×2 (08:31→20:01)
[2017-05-11] MEDS: MULTIVITAMIN TAB PO SCH (08:31)
[2017-05-11] MEDS: guaiFENesin E.R. 600 MG TAB PO SCH ×2 (08:31→20:01)
[2017-05-11] MEDS: REMOVE OLD PATCH T-DERMAL SCH (08:32)
--- NOTE | 2017-05-11 09:26 | HHI.PR ---
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 Benson on this admission, Patient's most recent admission was 03/08/17 for sepsis and cellulitis of the right foot. MRI at that time did not show any signs of osteomyelitis but did show extensive soft tissue edema. Patient underwent I&D of the right foot by Dr. Benson. Wound cultures were positive for MSSA. At that time, she was seen in consultation by infectious disease who recommended 2-4 weeks of IV antibiotics. However, patient left AGAINST MEDICAL ADVICE on 03/11/17. On this admission With Diagnosis of Abscess right foot, status post Transmetatarsal amputation and DM II, status post Irrigation and debridement of skin subcutaneous tissue and muscle of the right foot. May 08. ID specialist following with diagnosis of Recurrent abscess right foot MSSA, long treatment of Clindamycin on/off previous Culture positive for Nigrospora one in two Leukocytosis, recommended to switch from Vancomycin to Cefazolin. 09:01: stable in her bedroom awaiting final recommendations by ID specialist for discharge okay from medicine standpoint once cleared by ID. Objective Vital Signs Date Time Temp Pulse Resp B/P (MAP) Pulse Ox O2 Delivery O2 Flow Rate FiO2 05/11/17 08:00 97.5 78 16 148/82 (104) 95 05/10/17 23:36 96.5 84 19 135/76 (95) 95 05/10/17 20:18 96 21 05/10/17 20:00 97.4 96 20 170/79 (109) 97 05/10/17 16:00 97.1 86 16 137/75 (95) 93 05/10/17 12:00 96.9 76 18 137/70 (92) 96 I/O 05/10/17 05/10/17 05/10/17 05/11/17 05/11/17 05/11/17 06:59 14:59 22:59 06:59 14:59 22:59 Intake Total 500 ml 765 ml 2260 ml 290 ml Output Total 2500 ml 1500 ml Balance 500 ml 765 ml -240 ml -1210 ml Intake Oral 2160 ml 240 ml IV Total 500 ml 765 ml 100 ml 50 ml Output Urine Total 2500 ml 1500 ml # Voids 4 # Bowel Movements 2 0 Result Diagram: 05/09/17 0513 05/09/17512 Imaging No new imaging studies. Procedures 05/08/17 s/p I&D of skin, subcutaneous tissue and muscle of the right foot performed by Dr. Benson Other Results Laboratory Tests Test 05/08/17 11:17 05/09/17 05:13 Differential Total Cells Counted 100 Neutrophils % (Manual) 66 % Band Neutrophils % 3 % Lymphocytes % 23 % Monocytes % 4 % Eosinophils % 4 % Neutrophils # (Manual) 9.1 TH/MM3 Platelet Estimate NORMAL Platelet Morphology Comment NORMAL Red Cell Morphology Comment NORMAL White Blood Count 10.7 TH/MM3 Red Blood Count 4.24 MIL/MM3 Hemoglobin 12.6 GM/DL Hematocrit 37.1 % Mean Corpuscular Volume 87.4 FL Mean Corpuscular Hemoglobin 29.7 PG Mean Corpuscular Hemoglobin Concent 34.0 % Red Cell Distribution Width 13.6 % Platelet Count 275 TH/MM3 Mean Platelet Volume 8.5 FL Neutrophils (%) (Auto) 56.2 % Lymphocytes (%) (Auto) 33.2 % Monocytes (%) (Auto) 6.1 % Eosinophils (%) (Auto) 3.8 % Basophils (%) (Auto) 0.7 % Neutrophils # (Auto) 6.0 TH/MM3 Lymphocytes # (Auto) 3.6 TH/MM3 Monocytes # (Auto) 0.7 TH/MM3 Eosinophils # (Auto) 0.4 TH/MM3 Basophils # (Auto) 0.1 TH/MM3 CBC Comment DIFF FINAL Differential Comment Blood Urea Nitrogen 6 MG/DL Creatinine 0.60 MG/DL Random Glucose 127 MG/DL Calcium Level 9.0 MG/DL Sodium Level 139 MEQ/L Potassium Level 4.0 MEQ/L Chloride Level 104 MEQ/L Carbon Dioxide Level 25.4 MEQ/L Anion Gap 10 MEQ/L Estimat Glomerular Filtration Rate 104 ML/MIN Hemoglobin A1c 8.4 % Objective Remarks GENERAL: This is a well-nourished, well-developed patient, in no apparent distress. Awake and alert. Sitting up on the side of the bed. Appears comfortable. SKIN: No rashes, ecchymoses or lesions. Cool and dry. HEAD: Atraumatic. Normocephalic. EYES: Extraocular motions intact. No scleral icterus. No injection or drainage. ENT: Nose without bleeding or purulent drainage. Airway patent. MMM. NECK: Trachea midline. No lymphadenopathy. Supple, nontender, no meningeal signs. CARDIOVASCULAR: Regular rate and rhythm without murmurs, gallops, or rubs. RESPIRATORY: Clear to auscultation. Breath sounds equal bilaterally. No wheezes , rales, or rhonchi. GASTROINTESTINAL: Abdomen soft, non-tender, nondistended. No hepato-splenomegaly , or palpable masses. No guarding. MUSCULOSKELETAL: Right lower extremity in postoperative dressing that is clean, dry and intact. No edema appreciated. NEUROLOGICAL: Awake and alert. Able to move all extremities. Normal speech. Medications and IVs Current Medications Medications (Trade) Dose Ordered Sig/Karen Route Start Time Stop Time Status Last Admin Lactated Ringer's 1,000 ml @ 30 mls/hr Q24H PRN IV 05/08/17 09:45 05/11/17 09:44 05/08/17 10:15 Sodium Chloride 500 ml @ 30 mls/hr [id number] PRN IV 05/08/17 09:45 05/11/17 09:44 (Lopressor) 25 mg WATERM[employer]ING [employer]PER[employer]OR PRN PO 05/08/17 09:45 05/11/17 09:44 (Betadine 5% Antisepsis Kit) 1 applic [employer] PRN EACH NARE 05/08/17 09:45 05/11/17 09:44 (Chlorhexidine 2% Cloth) 3 pack [employer] PRN TOPICAL 05/08/17 09:45 05/11/17 09:44 05/08/17 10:46 (NovoLIN R INJ) See Protocol Table ... [employer]ING [employer]PER[employer]OR PRN SQ 05/08/17 09:45 05/11/17 09:44 (Betadine 7.5% Scrub) 1 applic ONCE TOPICAL 05/08/17 09:45 05/11/17 09:44 05/08/17 10:47 Vancomycin HCl 1000 mg/Sodium Chloride 250 ml @ 250 mls/hr [employer] IV 05/08/17 09:45 05/11/17 09:44 Cefazolin Sodium/ Dextrose 50 ml @ 100 mls/hr [employer] IV 05/08/17 09:45 05/11/17 09:44 (Ecotrin Ec) 81 mg DAILY PO 05/09/17 09:00 05/11/17 08:31 (Lipitor) 20 mg HS PO 05/08/17 21:00 05/10/17 21:22 (Protonix) 40 mg DAILY PO 05/09/17 09:00 05/11/17 08:31 (NS Flush) 2 ml UNSCH PRN IVF 05/08/17 14:15 (NS Flush) 2 ml BID IVF 05/08/17 21:00 05/10/17 21:00 (Mandy-Colace) 1 tab BID PO 05/08/17 21:00 05/11/17 08:31 (Milk Of [place] Liq) 10 ml Q12H PRN PO 05/08/17 17:00 ([place] 10-325 Mg) 1 tab Q6H PRN PO 05/08/17 16:00 05/09/17 00:43 ([place] 10-325 Mg) 2 tab Q6H PRN PO 05/08/17 16:00 05/11/17 05:31 (Zofran Inj) 4 mg Q4H PRN IVP 05/08/17 16:00 (Oscal-D 250-125) 250 mg TID PO 05/08/17 18:00 05/11/17 08:31 (Theragran M Tab) 1 tab DAILY PO 05/09/17 09:00 05/11/17 08:31 (Benadryl) 25 mg Q6H PRN PO 05/08/17 17:00 (Narcan Inj) 0.4 mg UNSCH PRN IV 05/08/17 14:15 (Dilaudid Pf Inj) 0.2 mg Q4H PRN IV PUSH 05/08/17 14:15 05/11/17 06:44 (D50w (Vial) Inj) 50 ml UNSCH PRN IV 05/08/17 15:45 (Glucagon Inj) 1 mg UNSCH PRN OTHER 05/08/17 15:45 (NovoLOG SUPPLEMENTAL SCALE) 1 ACHS SLIDING SCALE SQ 05/08/17 17:00 05/11/17 06:25 (Lactinex) 1 tab Q12HR PO 05/08/17 21:00 05/11/17 08:31 (Theragran) 1 tab DAILY PO 05/09/17 09:00 05/11/17 08:31 (Mucinex Er) 600 mg BID PO 05/08/17 21:00 05/11/17 08:31 (Duoneb Neb) 1 ampule Q4HR NEB PRN NEB 05/09/17 08:30 (Glucophage) 500 mg BIDPC PO 05/09/17 09:00 05/11/17 08:31 (Habitrol 14 Mg Patch.24 Hr) 1 patch DAILY T-DERMAL 05/10/17 09:30 05/11/17 08:31 Miscellaneous Information 1 DAILY T-DERMAL 05/11/17 09:00 05/11/17 08:32 Miscellaneous Information SPECIFIC LAB TO BE DRAWN: VANCO TROUGH DATE... ONCE ONCE .XX 05/11/17 11:45 05/11/17 11:46 Cefazolin Sodium/ Dextrose 50 ml @ 150 mls/hr Q8H IV 05/10/17 14:00 05/11/17 05:31 A/P Assessment and Plan 1. Recurrent abscess right foot MSSA, Long treatment with Clindamycin, on/off previous Culture positive for Nigrospora not sure by ID clinical significance, recommended to discontinue Vancomycin and continue Cefazolin\ Status post I and D of the skin, subcutaneous tissue, muscle and tendon of the right foot performed by Dr. Benson. if patient is unable to clear this infection she may require a below the knee amputation. continue pain medicine. awaiting final recommendations by ID specialist for discharge. 2. Leukocytosis Improved. continue antibiotics. 3. DM II last hemoglobin A1C 8.4. on sliding scale, her Metformin on hold. Levemir 5 units BID. 4. Hyperlipidemia to continue Statin 5. Tobacco dependence the patient refuse Bronchodilator, or Mucolytics, but accept Nicotine patch. 6. Degenerative Disc Disease/Herniated Nucleus Pulposus chronic on pain medicine 7. GERD on PPI. DVT prophylaxis - Bilateral SCDs and DIAMOND hose LLE - No anticoagulants per surgical team Discharge Planning Awaiting final recommendations by ID for discharge Oli Santana MD May 11, 2017 09:26
[2017-05-11] MEDS: SODIUM CHLORIDE 0.9% FLUSH 5 ML FLUSH IVF SCH ×2 (09:39→20:01)
--- NOTE | 2017-05-11 11:33 | HHI.FF ---
Infusion Therapy Location of Infusion Therapy: Home [facility] IV Infusion Order Patient Information Patient Weight 72.6 kg Diagnosis: Diagnosis DFI R foot Coded Allergies: codeine (Unverified Allergy, Severe, Hives, 05/08/17) morphine (Unverified Allergy, Severe, rash, 05/08/17) penicillin G (Unverified Allergy, Severe, Hives, 05/08/17) Pt reports she has tolerated Keflex on multiple occassions in past. Uncoded Allergies: STEROIDS (Allergy, Severe, Hives, 07/25/16) Administer Medication Cefazolin 2 grams IV q 8 hours Start Treatment: May 11, 2017 Stop Treatment: Jun 07, 2017 Additional Information Venous access: PICC Line Additional Instructions [x] Peripheral flush and dressing changes per protocol [x] Implanted port and central cupola liner: * Implanted port: 10 ml Normal Saline followed by 5 ml Heparin 100 units/ml Heparin flush after each use and monthly to maintain. [] May leave port accessed during therapy. [] May leave peripheral site accessed for duration of therapy. [x] If patient has SOB or respiratory distress, check oxygen saturation. If less than 90% or clinical signs of respiratory distress, administer oxygen at 2 L/min. via nasal cannula and notify physician. [x] Anaphylaxis/Reaction orders: * Stop infusion. * Keep IV line open with saline flush. * Notify physician. * Monitor vital signs every 15 minutes until symptoms resolve. * Check Oxygen saturation; Oxygen at 2 L/min. via nasal cannula if less than 90% or clinical signs of respiratory distress. * Administer diphenhydramine (Benadryl) 25 mg IV STAT, (unless patient has received as pre-med). May repeat once, if necessary. * Solu-Cortef 250 mg IVP over 30-60 seconds, use 100 mg vials for each dissolution. * Epinephrine (1mg/1 ml) 0.3 mg subcutaneously or IVP now with any signs of respiratory distress. * Check with physician for new additional pre-med orders if patient is re- challenged or re-treated. [x] May remove PICC line when treatment complete, after confirming with Physician. [x] If the patient is admitted to the hospital, the ED, or transferred via [facility] , complete transfer form including medication reconciliation order sheet. Laboratory Tests Weekly Labs: CBC w/diff, Creatinine, LFT's (Hepatic function test) Telma Griffiths MD May 11, 2017 11:33
[2017-05-11] MEDS ORDERED: PHARMACY ORDERED LAB ONE (11:45)
[2017-05-11 12:00] VITALS: BP 129/74; PULSE 82; RESP 15; TEMP 98.1; O2SAT 97
[2017-05-11 16:00] VITALS: BP 141/76; PULSE 90; RESP 16; TEMP 98.3; O2SAT 94
[2017-05-11] MEDS: INSULIN DETEMIR 100 UNITS/ML VIAL SQ SCH ×2 (16:00→20:03)
[2017-05-11 20:00] VITALS: BP 150/73; PULSE 83; RESP 21; TEMP 97.3; O2SAT 98
[2017-05-11] MEDS: ATORVASTATIN 20 MG TAB PO SCH (20:01)
--- NOTE | 2017-05-11 23:21 | HHI.IDPN ---
Subjective Subjective Remarks delayed entry - pt was seen earlier today around 1500 She is doing OK Ck is growing MSSA 2 strains both R to clindamycin started on cefazolin, tolearates OK , denies rash afebrile Antibiotics cefazoline Allergies: Coded Allergies: codeine (Unverified Allergy, Severe, Hives, 05/08/17) morphine (Unverified Allergy, Severe, rash, 05/08/17) penicillin G (Unverified Allergy, Severe, Hives, 05/08/17) Pt reports she has tolerated Keflex on multiple occassions in past. Uncoded Allergies: STEROIDS (Allergy, Severe, Hives, 07/25/16) Objective . Vital Signs Date Time Temp Pulse Resp B/P (MAP) Pulse Ox O2 Delivery O2 Flow Rate FiO2 05/11/17 20:00 97.3 83 21 150/73 (98) 98 05/11/17 18:18 21 05/11/17 16:00 98.3 90 16 141/76 (97) 94 05/11/17 12:00 98.1 82 15 129/74 (92) 97 05/11/17 08:00 97.5 78 16 148/82 (104) 95 05/10/17 23:36 96.5 84 19 135/76 (95) 95 05/11/17 05/11/17 05/12/17 14:59 22:59 06:59 Intake Total 50 ml 1080 ml Output Total 500 ml Balance 50 ml 580 ml Intake Oral 1080 ml IV Total 50 ml Output Urine Total 500 ml # Voids 4 # Bowel Movements 3 Physical Exam CONSTITUTIONAL/GENERAL: This is an overweight femael patient, in no apparent distress. TUBES/LINES/DRAINS: SKIN: No jaundice, rashes, or lesions RESPIRATORY/CHEST: unlabored respirations. MUSCULOSKELETAL: Extremities without clubbing, cyanosis, or edema. STATUS LOCALIS: R foot with surgical dressing in place, intact no ascending lympahcitis or cellulitis NEUROLOGICAL: Awake and alert. Motor and sensory grossly within normal limits. Follows commands. Clear speech . Moves all extremities. PSYCHIATRIC: cooperative Assessment & Plan Remarks Abscess right foot. Status post R transmetatarsal amputation Diabetes mellitus Recurrent abscess right foot, MSSA - frame repairer treament with clindamycin on/off - now R to clindamycin s/p I+D no e/o osteomyelitis during procedure or radiologically Previous clx + for Nigrospora 1/2 - its unclear clinicla significane. Probablle kell. However if recurrent growth will need treatment Diabetic right foot, confined to skin and soft tissue, clinically deep abscess Status post transmetatarsal amputation on that foot Leukocytosis Tobaccoism Diabetes Allergic to PCN, pt states sh has no problems with Keflex Poor compliance Rec's: cefazoline (1st choice)/ CFTX x 4 weeks fu clx if grows Nigrospora again will need to be treated, ow will Rx for MSSA only OPAT forms filled out PICC Tx plan dw pt dw case mngr Telma Griffiths MD May 11, 2017 23:21
[2017-05-12] VITALS: BP 155/75; PULSE 72; RESP 21; TEMP 96.1; O2SAT 96
[2017-05-12] MEDS: ceFAZolin 2 GM PREMIX 50 ML IV SCH ×3 (04:57→19:47)
[2017-05-12] MEDS: INSULIN ASPART SUPPLEMENTAL SCALE SQ SCH ×4 (05:01→19:47)
[2017-05-12] MEDS: ACETAMINOPHEN/HYDROcodone 325 MG/10 MG TAB PO PRN ×4 (05:37→23:29)
--- NOTE | 2017-05-12 07:37 | PD.ORT.PN ---
Subjective Subjective Remarks resting comfortably Objective Vitals Vital Signs Date Time Temp Pulse Resp B/P (MAP) Pulse Ox O2 Delivery O2 Flow Rate FiO2 05/12/17 00:00 96.1 72 21 155/75 (101) 96 05/11/17 20:00 97.3 83 21 150/73 (98) 98 05/11/17 18:18 21 05/11/17 16:00 98.3 90 16 141/76 (97) 94 05/11/17 12:00 98.1 82 15 129/74 (92) 97 05/11/17 08:00 97.5 78 16 148/82 (104) 95 I/O 05/11/17 05/11/17 05/11/17 05/12/17 05/12/17 05/12/17 06:59 14:59 22:59 06:59 14:59 22:59 Intake Total 290 ml 50 ml 1080 ml 240 ml Output Total 1500 ml 500 ml Balance -1210 ml 50 ml 580 ml 240 ml Intake Oral 240 ml 1080 ml 240 ml IV Total 50 ml 50 ml Output Urine Total 1500 ml 500 ml # Voids 4 2 # Bowel Movements 0 3 0 Result Diagram: 05/09/1713 05/09/1713 Procedures Irrigation and debridement right foot abscess Objective Remarks Sitting up in bed NAD RLE Dressing dry/recently changed, no new drainage, mild postop swelling, Status post previous transmet amputation Ankle flexion intact, good sensation, cap refill less than 2 secs Assessment & Plan Problem List: (1) PAD (peripheral artery disease) ICD Codes: I73.9 - Peripheral vascular disease, unspecified Status: Acute (2) Amputation at midfoot ICD Codes: S98.319A - Complete traumatic amputation of unspecified midfoot, initial encounter Status: Acute (3) Diabetes 1.5, managed as type 1 ICD Codes: E13.9 - Other specified diabetes mellitus without complications Status: Acute (4) Cellulitis and abscess of foot ICD Codes: L03.119 - Cellulitis of unspecified part of limb; L02.619 - Cutaneous abscess of unspecified foot Status: Acute (5) MSSA (methicillin susceptible Staphylococcus aureus) infection ICD Codes: A49.01 - Methicillin susceptible Staphylococcus aureus infection, unspecified site Status: Acute Assessment and Plan History of multiple foot debridements for infection. History of necrotizing fasciitis. Status post STSG dorsum of foot Status post trans-met amputation Deep abscess plantar aspect right foot. Surgery: pod#4 s/p I&D of skin subcutaneous tissue muscle of right foot with packing with iodoform gauze. PLAN: Pain controlled on po meds. Dressing changes daily with iodoform gauze packing and cling. Pt has done this previously with her previous I&D. ID eval/tx for antibiotics. Hold anticoagulants. Medical management of diabetes mellitus and medical conditions. Tobacco cessation encouraged. Ok to discharge to home when medical/ID feel patient is stable and antibiotics have been coordinated. She will need to continue with outpatient dressing changes. F/U in [address] Payton will be out of town until Sunday of next week. Evan Hammonds Jr. May 12, 2017 07:37
[2017-05-12 08:00] VITALS: BP 140/71; PULSE 81; RESP 17; TEMP 97; O2SAT 96
[2017-05-12] MEDS: MULTIVITAMIN TAB PO SCH (08:08)
[2017-05-12] MEDS: LACTOBACILLUS ACIDOPHILUS TAB PO SCH ×2 (08:08→19:48)
[2017-05-12] MEDS: PANTOPRAZOLE SOD 40 MG DELAYED RELEASE TAB PO SCH (08:08)
[2017-05-12] MEDS: guaiFENesin E.R. 600 MG TAB PO SCH ×2 (08:08→19:46)
[2017-05-12] MEDS: CALCIUM/VITAMIN D 250 MG/125 U TAB PO SCH ×3 (08:08→17:34)
[2017-05-12] MEDS: DOCUSATE SODIUM 50 MG/SENNA 8.6 MG TAB PO SCH ×2 (08:08→19:46)
[2017-05-12] MEDS: ASPIRIN EC 81 MG TABEC PO SCH (08:08)
[2017-05-12] MEDS: MULTIVITAMINS/MINERALS THERAPEUTIC TAB PO SCH (08:08)
[2017-05-12] MEDS: SODIUM CHLORIDE 0.9% FLUSH 5 ML FLUSH IVF SCH ×2 (08:09→19:46)
[2017-05-12] MEDS: NICOTINE 14 MG/24 HR PATCH T-DERMAL SCH (08:09)
[2017-05-12] MEDS: REMOVE OLD PATCH T-DERMAL SCH (08:09)
[2017-05-12] MEDS: INSULIN DETEMIR 100 UNITS/ML VIAL SQ SCH ×2 (08:16→19:48)
--- NOTE | 2017-05-12 08:38 | HHI.PR ---
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 Benson on this admission, Patient's most recent admission was 03/08/17 for sepsis and cellulitis of the right foot. MRI at that time did not show any signs of osteomyelitis but did show extensive soft tissue edema. Patient underwent I&D of the right foot by Dr. Benson. Wound cultures were positive for MSSA. At that time, she was seen in consultation by infectious disease who recommended 2-4 weeks of IV antibiotics. However, patient left AGAINST MEDICAL ADVICE on 03/11/17. On this admission With Diagnosis of Recurrent Abscess right foot, status post Transmetatarsal amputation and DM II, status post Irrigation and debridement of skin subcutaneous tissue and muscle of the right foot. May 08. ID specialist following with diagnosis of Recurrent abscess right foot MSSA, long treatment of Clindamycin on/off previous Culture positive for Nigrospora one in two Leukocytosis, recommended to switch from Vancomycin to Cefazolin. 09:01: stable in her bedroom awaiting final recommendations by ID specialist for discharge okay from medicine standpoint once cleared by ID. 05/12: as per ID with Diagnosis of Recurrent abscess right foot MSSA, custodial treatment with Clindamycin on/off, status post I and D, Previous culture positive for Nigrospora, Status post Transmetatarsal amputation on that foot, DM II and Poor compliance recommended Cefazolin first Choice continue for four weeks, PICC line recommended. seen in her room explained why she is not able to receive metformin while hospitalized will continue when discharged Objective Vital Signs Date Time Temp Pulse Resp B/P (MAP) Pulse Ox O2 Delivery O2 Flow Rate FiO2 05/12/17 08:00 97.0 81 17 140/71 (94) 96 05/12/17 00:00 96.1 72 21 155/75 (101) 96 05/11/17 20:00 97.3 83 21 150/73 (98) 98 05/11/17 18:18 21 05/11/17 16:00 98.3 90 16 141/76 (97) 94 05/11/17 12:00 98.1 82 15 129/74 (92) 97 I/O 05/11/17 05/11/17 05/11/17 05/12/17 05/12/17 05/12/17 07:00 15:00 23:00 07:00 15:00 23:00 Intake Total 290 ml 50 ml 1080 ml 240 ml Output Total 1500 ml 500 ml Balance -1210 ml 50 ml 580 ml 240 ml Intake Oral 240 ml 1080 ml 240 ml IV Total 50 ml 50 ml Output Urine Total 1500 ml 500 ml # Voids 4 2 # Bowel Movements 0 3 0 Result Diagram: 05/09/1713 05/09/17512 Imaging No new imaging studies performed. Procedures 05/08/17 s/p I&D of skin, subcutaneous tissue and muscle of the right foot performed by Dr. Benson Other Results Laboratory Tests Test 05/08/17 11:17 05/09/17 05:13 05/11/17 11:06 Differential Total Cells Counted 100 Neutrophils % (Manual) 66 % Band Neutrophils % 3 % Lymphocytes % 23 % Monocytes % 4 % Eosinophils % 4 % Neutrophils # (Manual) 9.1 TH/MM3 Platelet Estimate NORMAL Platelet Morphology Comment NORMAL Red Cell Morphology Comment NORMAL White Blood Count 10.7 TH/MM3 Red Blood Count 4.24 MIL/MM3 Hemoglobin 12.6 GM/DL Hematocrit 37.1 % Mean Corpuscular Volume 87.4 FL Mean Corpuscular Hemoglobin 29.7 PG Mean Corpuscular Hemoglobin Concent 34.0 % Red Cell Distribution Width 13.6 % Platelet Count 275 TH/MM3 Mean Platelet Volume 8.5 FL Neutrophils (%) (Auto) 56.2 % Lymphocytes (%) (Auto) 33.2 % Monocytes (%) (Auto) 6.1 % Eosinophils (%) (Auto) 3.8 % Basophils (%) (Auto) 0.7 % Neutrophils # (Auto) 6.0 TH/MM3 Lymphocytes # (Auto) 3.6 TH/MM3 Monocytes # (Auto) 0.7 TH/MM3 Eosinophils # (Auto) 0.4 TH/MM3 Basophils # (Auto) 0.1 TH/MM3 CBC Comment DIFF FINAL Differential Comment Blood Urea Nitrogen 6 MG/DL Creatinine 0.60 MG/DL Random Glucose 127 MG/DL Calcium Level 9.0 MG/DL Sodium Level 139 MEQ/L Potassium Level 4.0 MEQ/L Chloride Level 104 MEQ/L Carbon Dioxide Level 25.4 MEQ/L Anion Gap 10 MEQ/L Estimat Glomerular Filtration Rate 104 ML/MIN Hemoglobin A1c 8.4 % Vancomycin Level Trough 5.4 MCG/ML Objective Remarks GENERAL: This is a well-nourished, well-developed patient, in no apparent distress. Awake and alert. Sitting up on the side of the bed. Appears comfortable. SKIN: No rashes, ecchymoses or lesions. Cool and dry. HEAD: Atraumatic. Normocephalic. EYES: Extraocular motions intact. No scleral icterus. No injection or drainage. ENT: Nose without bleeding or purulent drainage. Airway patent. MMM. NECK: Trachea midline. No lymphadenopathy. Supple, nontender, no meningeal signs. CARDIOVASCULAR: Regular rate and rhythm without murmurs, gallops, or rubs. RESPIRATORY: Clear to auscultation. Breath sounds equal bilaterally. No wheezes , rales, or rhonchi. GASTROINTESTINAL: Abdomen soft, non-tender, nondistended. No hepato-splenomegaly , or palpable masses. No guarding. MUSCULOSKELETAL: Right lower extremity in postoperative dressing that is clean, dry and intact. NEUROLOGICAL: Awake and alert. Able to move all extremities. Normal speech. Medications and IVs Current Medications Medications (Trade) Dose Ordered Sig/Karen Route Start Time Stop Time Status Last Admin (Ecotrin Ec) 81 mg DAILY PO 05/09/17 09:00 05/12/17 08:08 (Lipitor) 20 mg HS PO 05/08/17 21:00 05/11/17 20:01 (Protonix) 40 mg DAILY PO 05/09/17 09:00 05/12/17 08:08 (NS Flush) 2 ml UNSCH PRN IVF 05/08/17 14:15 (NS Flush) 2 ml BID IVF 05/08/17 21:00 05/12/17 08:09 (Mandy-Colace) 1 tab BID PO 05/08/17 21:00 05/12/17 08:08 (Milk Of Magnesia Liq) 10 ml Q12H PRN PO 05/08/17 17:00 ([place] 10-325 Mg) 1 tab Q6H PRN PO 05/08/17 16:00 05/09/17 00:43 ([place] 10-325 Mg) 2 tab Q6H PRN PO 05/08/17 16:00 05/12/17 05:37 (Zofran Inj) 4 mg Q4H PRN IVP 05/08/17 16:00 (Oscal-D 250-125) 250 mg TID PO 05/08/17 18:00 05/12/17 08:08 (Theragran M Tab) 1 tab DAILY PO 05/09/17 09:00 05/12/17 08:08 (Benadryl) 25 mg Q6H PRN PO 05/08/17 17:00 (Narcan Inj) 0.4 mg UNSCH PRN IV 05/08/17 14:15 (Dilaudid Pf Inj) 0.2 mg Q4H PRN IV PUSH 05/08/17 14:15 05/11/17 22:29 (D50w (Vial) Inj) 50 ml UNSCH PRN IV 05/08/17 15:45 (Glucagon Inj) 1 mg UNSCH PRN OTHER 05/08/17 15:45 (NovoLOG SUPPLEMENTAL SCALE) 1 ACHS SLIDING SCALE SQ 05/08/17 17:00 05/11/17 20:03 (Lactinex) 1 tab Q12HR PO 05/08/17 21:00 05/12/17 08:08 (Theragran) 1 tab DAILY PO 05/09/17 09:00 05/12/17 08:08 (Mucinex Er) 600 mg BID PO 05/08/17 21:00 05/12/17 08:08 (Duoneb Neb) 1 ampule Q4HR NEB PRN NEB 05/09/17 08:30 (Habitrol 14 Mg Patch.24 Hr) 1 patch DAILY T-DERMAL 05/10/17 09:30 05/12/17 08:09 Miscellaneous Information 1 DAILY T-DERMAL 05/11/17 09:00 05/12/17 08:09 Cefazolin Sodium/ Dextrose 50 ml @ 150 mls/hr Q8H IV 05/10/17 14:00 05/12/17 04:57 (Levemir Inj) 5 units Q12HR SQ 05/11/17 16:00 05/12/17 08:16 A/P Assessment and Plan 1. Recurrent abscess right foot MSSA, Long treatment with Clindamycin, on/off previous Culture positive for Nigrospora not sure by ID clinical significance, recommended to discontinue Vancomycin and continue Cefazolin\ Status post I and D of the skin, subcutaneous tissue, muscle and tendon of the right foot performed by Dr. Benson. if patient is unable to clear this infection she may require a below the knee amputation. continue pain medicine. orders given for antibiotic management by ID specialist. 2. Leukocytosis Improved. continue antibiotics. 3. DM II last hemoglobin A1C 8.4. on sliding scale, her Metformin on hold. Levemir 5 units BID. 4. Hyperlipidemia to continue Statin 5. Tobacco dependence the patient refuse Bronchodilator, or Mucolytics, but accept Nicotine patch. 6. Degenerative Disc Disease/Herniated Nucleus Pulposus chronic on pain medicine 7. GERD on PPI. DVT prophylaxis - Bilateral SCDs and DIAMOND hose LLE - No anticoagulants per surgical team Discharge Planning As per Attending Physician. Oli Santana MD May 12, 2017 08:38
[2017-05-12] MEDS ORDERED: EPIN1INJ21 SQ (10:59)
[2017-05-12] MEDS ORDERED: SOLU250I IV PUSH (10:59)
[2017-05-12] MEDS ORDERED: CEFA2SOL IV (10:59)
[2017-05-12] MEDS ORDERED: EPIN1INJ21 IV PUSH (10:59)
[2017-05-12 12:00] VITALS: BP 122/77; PULSE 84; RESP 17; TEMP 97.1; O2SAT 97
[2017-05-12] MEDS ORDERED: SODIUM CHLORIDE 0.9% FLUSH 10 ML FLUSH IV FLUSH PRN (15:15)
--- NOTE | 2017-05-12 15:23 | RADRPT ---
EXAM DATE/TIME: 05/12/2017 14:51 [place] COMPARISON: CHEST SINGLE AP, March 07, 2017, 14:27. INDICATIONS : Post right sided PICC line placement. MEDICAL HISTORY : Diabetes mellitus type II. SURGICAL HISTORY : Hysterectomy. Amputation partial right foot. ENCOUNTER: Initial ACUITY: 1 day PAIN SCORE: 0/10 LOCATION: Bilateral chest FINDINGS: PICC line is in good position. Lungs are clear. The heart and pulmonary vascularity are normal. The portion of the bony skeleton visualized is unremarkable. CONCLUSION: PICC line in good position Jared Matthews MD FACR on May 12, 2017 at 15:21 Board Certified Radiologist. This report was verified electronically.
[2017-05-12 16:00] VITALS: BP 120/63; PULSE 85; RESP 17; TEMP 97.9; O2SAT 94
[2017-05-12 17:55] VITALS: O2SAT 94
[2017-05-12] MEDS: ATORVASTATIN 20 MG TAB PO SCH (19:46)
[2017-05-12 20:00] VITALS: BP 165/79; PULSE 90; RESP 21; TEMP 97.7; O2SAT 97
[2017-05-13 00:09] VITALS: BP 147/76; PULSE 83; RESP 21; TEMP 97.5; O2SAT 97
[2017-05-13] MEDS: ceFAZolin 2 GM PREMIX 50 ML IV SCH ×2 (05:14→12:15)
[2017-05-13] MEDS: INSULIN ASPART SUPPLEMENTAL SCALE SQ SCH ×2 (05:17→12:19)
[2017-05-13] MEDS: ACETAMINOPHEN/HYDROcodone 325 MG/10 MG TAB PO PRN ×2 (05:18→10:50)
--- NOTE | 2017-05-13 07:05 | PD.ORT.PN ---
Subjective Subjective Remarks resting comfortably Objective Vitals Vital Signs Date Time Temp Pulse Resp B/P (MAP) Pulse Ox O2 Delivery O2 Flow Rate FiO2 05/13/17 00:09 97.5 83 21 147/76 (99) 97 05/12/17 20:00 97.7 90 21 165/79 (107) 97 05/12/17 17:55 94 21 05/12/17 16:00 97.9 85 17 120/63 (82) 94 05/12/17 12:00 97.1 84 17 122/77 (92) 97 05/12/17 08:00 97.0 81 17 140/71 (94) 96 I/O 05/12/17 05/12/17 05/12/17 05/13/17 05/13/17 05/13/17 06:59 14:59 22:59 06:59 14:59 22:59 Intake Total 240 ml 1140 ml 240 ml Balance 240 ml 1140 ml 240 ml Intake Oral 240 ml 1040 ml 240 ml IV Total 100 ml # Voids 2 5 3 # Bowel Movements 0 1 0 Result Diagram: 05/09/17 0513 05/09/1713 Procedures Irrigation and debridement right foot abscess Objective Remarks Sitting up in bed NAD RLE Dressing dry/recently changed, no new drainage, mild postop swelling, Status post previous transmet amputation Ankle flexion intact, good sensation, cap refill less than 2 secs Assessment & Plan Problem List: (1) PAD (peripheral artery disease) ICD Codes: I73.9 - Peripheral vascular disease, unspecified Status: Acute (2) Amputation at midfoot ICD Codes: S98.319A - Complete traumatic amputation of unspecified midfoot, initial encounter Status: Acute (3) Diabetes 1.5, managed as type 1 ICD Codes: E13.9 - Other specified diabetes mellitus without complications Status: Acute (4) Cellulitis and abscess of foot ICD Codes: L03.119 - Cellulitis of unspecified part of limb; L02.619 - Cutaneous abscess of unspecified foot Status: Acute (5) MSSA (methicillin susceptible Staphylococcus aureus) infection ICD Codes: A49.01 - Methicillin susceptible Staphylococcus aureus infection, unspecified site Status: Acute Assessment and Plan History of multiple foot debridements for infection. History of necrotizing fasciitis. Status post STSG dorsum of foot Status post trans-met amputation Deep abscess plantar aspect right foot. Surgery: pod#5 s/p I&D of skin subcutaneous tissue muscle of right foot with packing with iodoform gauze. PLAN: Pain controlled on po meds. Dressing changes daily with iodoform gauze packing and cling. Pt has done this previously with her previous I&D. ID eval/tx for antibiotics. Hold anticoagulants. Medical management of diabetes mellitus and medical conditions. Tobacco cessation encouraged. Discharge to home today when medical/ID feel patient is stable and antibiotics have been coordinated. She will need to continue with outpatient dressing changes. F/U in [address] Payton will be out of town until Sunday of next week. Evan Hammonds Jr. May 13, 2017 07:05
[2017-05-13 08:00] VITALS: BP 138/72; PULSE 77; RESP 17; TEMP 96.3; O2SAT 97
[2017-05-13] MEDS: REMOVE OLD PATCH T-DERMAL SCH (09:00)
[2017-05-13] MEDS ORDERED: SODIUM CHLORIDE 0.9% FLUSH 10 ML FLUSH IV FLUSH SCH (09:00)
[2017-05-13] MEDS: SODIUM CHLORIDE 0.9% FLUSH 5 ML FLUSH IVF SCH (09:00)
[2017-05-13] MEDS: NICOTINE 14 MG/24 HR PATCH T-DERMAL SCH (09:41)
[2017-05-13] MEDS: PANTOPRAZOLE SOD 40 MG DELAYED RELEASE TAB PO SCH (09:41)
[2017-05-13] MEDS: CALCIUM/VITAMIN D 250 MG/125 U TAB PO SCH ×2 (09:41→12:15)
[2017-05-13] MEDS: MULTIVITAMINS/MINERALS THERAPEUTIC TAB PO SCH (09:41)
[2017-05-13] MEDS: LACTOBACILLUS ACIDOPHILUS TAB PO SCH (09:41)
[2017-05-13] MEDS: DOCUSATE SODIUM 50 MG/SENNA 8.6 MG TAB PO SCH (09:41)
[2017-05-13] MEDS: ASPIRIN EC 81 MG TABEC PO SCH (09:41)
[2017-05-13] MEDS: guaiFENesin E.R. 600 MG TAB PO SCH (09:42)
[2017-05-13] MEDS: MULTIVITAMIN TAB PO SCH (09:42)
--- NOTE | 2017-05-13 09:49 | HHI.PR ---
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 Benson on this admission, Patient's most recent admission was 03/08/17 for sepsis and cellulitis of the right foot. MRI at that time did not show any signs of osteomyelitis but did show extensive soft tissue edema. Patient underwent I&D of the right foot by Dr. Benson. Wound cultures were positive for MSSA. At that time, she was seen in consultation by infectious disease who recommended 2-4 weeks of IV antibiotics. However, patient left AGAINST MEDICAL ADVICE on 03/11/17. On this admission With Diagnosis of Recurrent Abscess right foot, status post Transmetatarsal amputation and DM II, status post Irrigation and debridement of skin subcutaneous tissue and muscle of the right foot. May 08. ID specialist following with diagnosis of Recurrent abscess right foot MSSA, long treatment of Clindamycin on/off previous Culture positive for Nigrospora one in two Leukocytosis, recommended to switch from Vancomycin to Cefazolin. 09:01: stable in her bedroom awaiting final recommendations by ID specialist for discharge okay from medicine standpoint once cleared by ID. 05/12: as per ID with Diagnosis of Recurrent abscess right foot MSSA, mcc treatment with Clindamycin on/off, status post I and D, Previous culture positive for Nigrospora, Status post Transmetatarsal amputation on that foot, DM II and Poor compliance recommended Cefazolin first Choice continue for four weeks, PICC line recommended. seen in her room explained why she is not able to receive metformin while hospitalized will continue when discharged 05/13: Seen in her bedroom in the presence of nurse Miss Ramirez, patient not happy because her C has not been arranged due to Insurance issues and also Companies for [facility] not able to take the case in his [place] weekend, no nausea, vomit or diarrhea Objective Vital Signs Date Time Temp Pulse Resp B/P (MAP) Pulse Ox O2 Delivery O2 Flow Rate FiO2 05/13/17 08:00 96.3 77 17 138/72 (94) 97 05/13/17 00:09 97.5 83 21 147/76 (99) 97 05/12/17 20:00 97.7 90 21 165/79 (107) 97 05/12/17 17:55 94 21 05/12/17 16:00 97.9 85 17 120/63 (82) 94 05/12/17 12:00 97.1 84 17 122/77 (92) 97 I/O 05/12/17 05/12/17 05/12/17 05/13/17 05/13/17 05/13/17 07:00 15:00 23:00 07:00 15:00 23:00 Intake Total 240 ml 1140 ml 240 ml Balance 240 ml 1140 ml 240 ml Intake Oral 240 ml 1040 ml 240 ml IV Total 100 ml # Voids 2 5 3 # Bowel Movements 0 1 0 Result Diagram: 05/09/17 0513 05/09/17 0513 Imaging Last Impressions Chest X-Ray 05/12/17 0000 Signed Impressions: Service Date/Time: Friday, May 12, 2017 14:51 - CONCLUSION: PICC line in good position Jared Matthews MD FACR Procedures 05/08/17 s/p I&D of skin, subcutaneous tissue and muscle of the right foot performed by Dr. Benson Other Results Laboratory Tests Test 05/08/17 11:17 05/09/17 05:13 05/11/17 11:06 Differential Total Cells Counted 100 Neutrophils % (Manual) 66 % Band Neutrophils % 3 % Lymphocytes % 23 % Monocytes % 4 % Eosinophils % 4 % Neutrophils # (Manual) 9.1 TH/MM3 Platelet Estimate NORMAL Platelet Morphology Comment NORMAL Red Cell Morphology Comment NORMAL White Blood Count 10.7 TH/MM3 Red Blood Count 4.24 MIL/MM3 Hemoglobin 12.6 GM/DL Hematocrit 37.1 % Mean Corpuscular Volume 87.4 FL Mean Corpuscular Hemoglobin 29.7 PG Mean Corpuscular Hemoglobin Concent 34.0 % Red Cell Distribution Width 13.6 % Platelet Count 275 TH/MM3 Mean Platelet Volume 8.5 FL Neutrophils (%) (Auto) 56.2 % Lymphocytes (%) (Auto) 33.2 % Monocytes (%) (Auto) 6.1 % Eosinophils (%) (Auto) 3.8 % Basophils (%) (Auto) 0.7 % Neutrophils # (Auto) 6.0 TH/MM3 Lymphocytes # (Auto) 3.6 TH/MM3 Monocytes # (Auto) 0.7 TH/MM3 Eosinophils # (Auto) 0.4 TH/MM3 Basophils # (Auto) 0.1 TH/MM3 CBC Comment DIFF FINAL Differential Comment Blood Urea Nitrogen 6 MG/DL Creatinine 0.60 MG/DL Random Glucose 127 MG/DL Calcium Level 9.0 MG/DL Sodium Level 139 MEQ/L Potassium Level 4.0 MEQ/L Chloride Level 104 MEQ/L Carbon Dioxide Level 25.4 MEQ/L Anion Gap 10 MEQ/L Estimat Glomerular Filtration Rate 104 ML/MIN Hemoglobin A1c 8.4 % Vancomycin Level Trough 5.4 MCG/ML Objective Remarks GENERAL: This is a well-nourished, well-developed patient, in no apparent distress. Awake and alert. Sitting up on the side of the bed. Appears comfortable. SKIN: No rashes, ecchymoses or lesions. Cool and dry. HEAD: Atraumatic. Normocephalic. EYES: Extraocular motions intact. No scleral icterus. No injection or drainage. ENT: Nose without bleeding or purulent drainage. Airway patent. MMM. NECK: Trachea midline. No lymphadenopathy. Supple, nontender, no meningeal signs. CARDIOVASCULAR: Regular rate and rhythm without murmurs, gallops, or rubs. RESPIRATORY: Clear to auscultation. Breath sounds equal bilaterally. No wheezes , rales, or rhonchi. GASTROINTESTINAL: Abdomen soft, non-tender, nondistended. No hepato-splenomegaly , or palpable masses. No guarding. MUSCULOSKELETAL: Right lower extremity in postoperative dressing that is clean, dry and intact. NEUROLOGICAL: Awake and alert. Able to move all extremities. Normal speech. Medications and IVs Current Medications Medications (Trade) Dose Ordered Sig/Karen Route Start Time Stop Time Status Last Admin (Ecotrin Ec) 81 mg DAILY PO 05/09/17 09:00 05/12/17 08:08 (Lipitor) 20 mg HS PO 05/08/17 21:00 05/12/17 19:46 (Protonix) 40 mg DAILY PO 05/09/17 09:00 05/12/17 08:08 (NS Flush) 2 ml UNSCH PRN IVF 05/08/17 14:15 (NS Flush) 2 ml BID IVF 05/08/17 21:00 05/12/17 19:46 (Mandy-Colace) 1 tab BID PO 05/08/17 21:00 05/12/17 19:46 (Milk Of Magnrobert Liq) 10 ml Q12H PRN PO 05/08/17 17:00 (Kintyre 10-325 Mg) 1 tab Q6H PRN PO 05/08/17 16:00 05/09/17 00:43 (Kintyre 10-325 Mg) 2 tab Q6H PRN PO 05/08/17 16:00 05/13/17 05:18 (Zofran Inj) 4 mg Q4H PRN IVP 05/08/17 16:00 (Oscal-D 250-125) 250 mg TID PO 05/08/17 18:00 05/12/17 17:34 (Theragran M Tab) 1 tab DAILY PO 05/09/17 09:00 05/12/17 08:08 (Benadryl) 25 mg Q6H PRN PO 05/08/17 17:00 (Narcan Inj) 0.4 mg UNSCH PRN IV 05/08/17 14:15 (Dilaudid Pf Inj) 0.2 mg Q4H PRN IV PUSH 05/08/17 14:15 05/11/17 22:29 (D50w (Vial) Inj) 50 ml UNSCH PRN IV 05/08/17 15:45 (Glucagon Inj) 1 mg UNSCH PRN OTHER 05/08/17 15:45 (NovoLOG SUPPLEMENTAL SCALE) 1 ACHS SLIDING SCALE SQ 05/08/17 17:00 05/13/17 05:17 (Lactinex) 1 tab Q12HR PO 05/08/17 21:00 05/12/17 19:48 (Theragran) 1 tab DAILY PO 05/09/17 09:00 05/12/17 08:08 (Mucinex Er) 600 mg BID PO 05/08/17 21:00 05/12/17 19:46 (Duoneb Neb) 1 ampule Q4HR NEB PRN NEB 05/09/17 08:30 (Habitrol 14 Mg Patch.24 Hr) 1 patch DAILY T-DERMAL 05/10/17 09:30 05/12/17 08:09 Miscellaneous Information 1 DAILY T-DERMAL 05/11/17 09:00 05/12/17 08:09 Cefazolin Sodium/ Dextrose 50 ml @ 150 mls/hr Q8H IV 05/10/17 14:00 05/13/17 05:14 (Levemir Inj) 5 units Q12HR SQ 05/11/17 16:00 05/12/17 08:16 (NS Flush) See Protocol DAILY IV FLUSH 05/13/17 09:00 (NS Flush) See Protocol UNSCH PRN IV FLUSH 05/12/17 15:15 (Heparin Central Flush) See Protocol DAILY IV FLUSH 05/13/17 09:00 (Heparin Central Flush) See Protocol UNSCH PRN IV FLUSH 05/12/17 15:15 (NS Flush) UNSCH PRN IV FLUSH 05/12/17 15:15 A/P Assessment and Plan 1. Recurrent abscess right foot MSSA, Long treatment with Clindamycin, on/off previous Culture positive for Nigrospora not sure by ID clinical significance, recommended to discontinue Vancomycin and continue Cefazolin\ Status post I and D of the skin, subcutaneous tissue, muscle and tendon of the right foot performed by Dr. Benson. if patient is unable to clear this infection she may require a below the knee amputation. continue pain medicine. orders given for antibiotic management by ID specialist. 2. Leukocytosis Improved. continue antibiotics. 3. DM II last hemoglobin A1C 8.4. on sliding scale, her Metformin on hold. Levemir 5 units BID. maintain her blood sugars between 140 to 180 while in house at this time 163 4. Hyperlipidemia to continue Statin 5. Tobacco dependence the patient refuse Bronchodilator, or Mucolytics, but accept Nicotine patch. 6. Degenerative Disc Disease/Herniated Nucleus Pulposus chronic on pain medicine 7. GERD on PPI. DVT prophylaxis - Bilateral SCDs and DIAMOND hose LLE - No anticoagulants per surgical team Discharge Planning As per Attending Physician. Oli Santana MD May 13, 2017 09:49
[2017-05-13] MEDS: INSULIN DETEMIR 100 UNITS/ML VIAL SQ SCH (09:52)
[2017-05-13 12:00] VITALS: BP 171/86; PULSE 82; RESP 18; TEMP 97.9; O2SAT 97
[2017-06-27] MEDS ORDERED: LISI-515 PO (13:07)
[2017-06-27] MEDS ORDERED: OMEP40CA2 PO (13:10)
[2017-06-27] MEDS ORDERED: ATOR20TA15 PO (13:10)
[2017-06-27] MEDS ORDERED: GLIP5TAB8 PO (13:20)
== END 2017-05-13 15:51 | disposition left against medical advice (07) | DRG 580 ==
LOC: HSDC 08:59 → EDSTATUS 12:00 → HSDI 14:15 → N07A 16:05
PROVIDERS: ADMIT Orthopaedic Surgery Orthopaedic Surgery of the Spine; ATTEND Orthopaedic Surgery Orthopaedic Surgery of the Spine
PROC: 0KBV0ZZ Excision of Right Foot Muscle, Open Approach (ICD-10-PCS; principal; 2017-05-08 13:15)
DX: L02.611 Cutaneous abscess of right foot (principal); L03.115 Cellulitis of right lower limb; L97.519 Non-pressure chronic ulcer of other part of right foot with unspecified severity; B95.61 Methicillin susceptible Staphylococcus aureus infection as the cause of diseases classified elsewhere; E78.1 Pure hyperglyceridemia; E11.9 Type 2 diabetes mellitus without complications; E78.5 Hyperlipidemia, unspecified; K21.9 Gastro-esophageal reflux disease without esophagitis; M51.36 Other intervertebral disc degeneration, lumbar region; I73.9 Peripheral vascular disease, unspecified; M51.26 Other intervertebral disc displacement, lumbar region; F17.200 Nicotine dependence, unspecified, uncomplicated; Z88.0 Allergy status to penicillin; Z88.5 Allergy status to narcotic agent; Z79.84 Long term (current) use of oral hypoglycemic drugs; Z79.899 Other long term (current) drug therapy; Z86.19 Personal history of other infectious and parasitic diseases; Z89.412 Acquired absence of left great toe; Z89.431 Acquired absence of right foot
CPT/HCPCS: 36569; 71010; 76937; 80048; 80202; 82948; 83036; 85007; 85025; 85027; 86403; 87015; 87070; 87077; 87102; 87116; 87147; 87176; 87186; 87205; 87206; J0131; J0690; J1170; J1580; J1642; J1650; J1815; J2250; J2405; J3010; J3370; J7040; J7050; J7120